=== PATIENT | female | born 1945 | race Caucasian/White ===

== ENCOUNTER 2016-08-22 17:05 | Emergency (ER) | payer MEDICARE ==
[2016-08-22 18:23] VITALS: BP 104/58
[2016-08-22] MEDS ORDERED: cefTRIAXone VIAL(*) 1,000 MG VIAL IM ONE (19:17)
[2016-08-22] MEDS ORDERED: Lidocaine 1% MPF* 2 ML VIAL INJ ONE (19:17)
--- NOTE | 2016-08-22 19:24 | UC ---
Complaint Female HPI - HPI Summary HPI Summary: Patient has been having urinary symptoms for a week, she has had many UTI's in the past, has an indwelling catheter. urine in the leg back is a few hours old, unable to obtaine a clean catch without taking the catheter out at this point. friend with her states she has not been herself, confused and tired. - History Of Current Complaint Chief Complaint: UCGU Stated Complaint: URINARY COMPLAINT Time Seen by Provider: 08/22/16 18:41 Hx Obtained From: Patient ?: No Onset/Duration: Sudden Onset, Lasting Days - 7 Timing: Constant Severity Initially: Mild Severity Currently: Moderate Character: Cramping - Allergies/Home Medications Allergies/Adverse Reactions: Allergies Allergy/AdvReac Type Severity Reaction Status Date / Time Ibuprofen [From Motrin] Allergy Anaphylatic Verified 08/22/16 18:24 Shock Home Medications: Home Medications Aspirin TAB* [Aspirin 325 MG TAB*] 325 mg PO DAILY 08/22/16 [History Confirmed 08/22/16] Baclofen TAB* [Lioresal TAB*] 10 mg PO DAILY 08/22/16 [History Confirmed ] Bp Med 1 tab PO DAILY 08/22/16 [History Confirmed 08/22/16] Gabapentin CAP(*) [Neurontin 100 mg CAP(*)] 1 tab PO ONCE 08/22/16 [History Confirmed 08/22/16] Levothyroxine TAB* [Synthroid TAB*] 100 mcg PO DAILY 08/22/16 [History Confirmed 08/22/16] Lisinopril [Zestril 5 MG-] 5 mg PO DAILY 08/22/16 [History Confirmed 08/22/16] Sertraline* [Zoloft*] 25 mg PO DAILY 08/22/16 [History Confirmed 08/22/16] Simvastatin [Zocor 5 MG-] 5 mg PO DAILY 08/22/16 [History Confirmed 08/22/16] PMH/Surg Hx/FS Hx/Imm Hx Previously Healthy: Yes - Surgical History Surgical History: Yes Surgery Procedure, Year, and Place: R TKA. KNEE REVISION RIGHT. B/L ANKLE SX FOR FX IN 2016. SKIN GRAFT RIGHT BUTTOCK. THYROIDECTOMY - Family History Known Family History: Positive: Hypertension - Social History Alcohol Use: Daily Substance Use Type: None Smoking Status (MU): Former Smoker When Did the Patient Quit Smoking/Using Tobacco: 1982 Review of Systems Constitutional: Fatigue Skin: Negative Eyes: Negative ENT: Negative Respiratory: Negative Cardiovascular: Negative Gastrointestinal: Abdominal Pain Genitourinary: Negative Motor: Negative Neurovascular: Negative Musculoskeletal: Negative Neurological: Headache Psychological: Negative All Other Systems Reviewed And Are Negative: Yes Physical Exam Triage Information Reviewed: Yes Appearance: No Pain Distress, Well-Nourished, Ill-Appearing Vital Signs: Initial Vital Signs Temp 97.4 F 08/22/16 18:12 Pulse 81 08/22/16 18:12 Resp 16 08/22/16 18:12 BP 104/58 08/22/16 18:12 Pulse Ox 99 08/22/16 18:12 Vital Signs Reviewed: Yes Eye Exam: Normal ENT Exam: Normal Dental Exam: Normal Neck exam: Normal Respiratory Exam: Normal Cardiovascular Exam: Normal Abdominal Exam: Normal Bowel Sounds: Positive: Present Musculoskeletal Exam: Normal Musculoskeletal: Positive: Other: - at baseline Neurological Exam: Normal Psychological: Positive: Other: - patient is able to answer questions without difficulty, does have reported increased weakness and fatique Skin Exam: Normal Complaint Female Dx - Course Course Of Treatment: hx obtained, exam performed ,meds reviewed, treated for UTI , educated about follow up. - Differential Dx/Diagnosis Differential Diagnosis/HQI/PQRI: Ureteral Stone, Urinary Tract Infection Provider Diagnoses: UTI Discharge - Discharge Plan Condition: Stable Disposition: HOME Prescriptions: Cephalexin CAP* [Keflex CAP*] 500 mg PO BID #14 cap Patient Education Materials: Urinary Tract Infection in Women (ED), Catheter- associated Urinary Tract Infection (ED) Additional Instructions: 1. Take the medication as prescribed. 2. Increase fluid intake and monitor you BP 3. I receommend follow up in the next few days to reevaluate do to your vunerablity of infection with a catheter. 4. Tylenol as neede for pain and fever.
== END 2016-08-22 20:10 | disposition home or self-care (01) ==
LOC: MERGE 17:05 → UCCORT 17:05
DX: N39.0 Urinary tract infection, site not specified (principal); Z88.6 Allergy status to analgesic agent; Z79.82 Long term (current) use of aspirin; Z87.891 Personal history of nicotine dependence
CPT/HCPCS: 81003; 96372; 99202; G0463; J0696

== ENCOUNTER 2017-02-03 13:31 | Inpatient (IN) | payer MEDICARE ==
[2017-02-03] MEDS ORDERED: Cefepime(*) 1 GM in NS 0.9% 50 ML* 50 ML IVPB SCH (15:00)
[2017-02-03] MEDS: Cefepime 1 GM in Dextrose(*) 1 GM/50 ML BAG IV SCH (15:36)
[2017-02-03] MEDS: NS 0.9% 1000 ML* 1,000 ML IV SCH (15:36)
[2017-02-03 16:18] LABS: ABS Basophils 0.1 10^3/ul (0-0.2); ABS Eosinophils 0.1 10^3/ul (0-0.6); ABS Monocytes 0.7 10^3/ul (0-0.8); ABS Neutrophils 5.7 10^3/ul (1.5-7.7); ABS Nucleated RBC 0 10^3/ul; Hematocrit 32 % (35-47); Hemoglobin 10.4 g/dl (12.0-16.0); Lymphocyte % 13.7 % (25-47); Mean Corpuscular HGB Conc 33 g/dl (31-36); Mean Corpuscular Hemoglobin 23 pg (27-31); Mean Platelet Volume 7 um3 (7.4-10.4); Nucleated Red Blood Cells % 0; Platelet Count 421 10^3/ul (150-450); Red Blood Count 4.44 10^6/ul (4.0-5.4); Red Cell Distribution Width 21 % (10.5-15); White Blood Count 7.5 10^3/ul (3.5-10.8)
[2017-02-03 16:19] LABS: Mean Corpuscular Volume 71 fL (80-97)
[2017-02-03] MEDS ORDERED: Metoprolol Tartrate TAB* 25 MG PO ONE (16:23)
[2017-02-03 16:33] LABS: EGFR Non-African American 102.2 (>60)
[2017-02-03] MEDS ORDERED: Potassium Chlor TAB* 10 MEQ TAB.ER PO ONE (17:13)
[2017-02-03 17:33] LABS: Urine Appearance Cloudy; Urine Blood Negative (Negative); Urine Color Yellow; Urine Ketones 1+ (Negative); Urine Protein Negative (Negative); Urine Specific Gravity 1.011 (1.010-1.030); Urine Urobilinogen Negative (Negative)
--- NOTE | 2017-02-03 18:03 | RAD ---
Mr. INDICATION: Pain and swelling. Edema COMPARISON: None TECHNIQUE: Duplex interrogation of the Lowerextremity was performed. FINDINGS: Deep veins: The common femoral, great saphenous, profunda femoris, proximal, mid, and distal deep femoral, popliteal, posterior tibial, and peroneal veins were interrogated. Distal femoral and a portion proximal popliteal vein are noncompressible consistent with thrombus. The age is indeterminate. There is otherwise normal compressibility, augmentation, and phasic flow. Note that there is very limited evaluation the calf veins due to edema. Superficial veins: There are no findings of superficial thrombophlebitis. Popliteal fossa: Is a complex popliteal cyst which appears to dissect down to the ankle. The cyst measures 4.7 x 4.8 cm at the level the popliteal fossa and extends caudally a distance of 25 cm there is a second small popliteal fossa fluid collection measuring 3.9 x 1.2 x 2.5 cm. Soft tissues: Diffuse soft tissue edema. IMPRESSION: SUSPECT DISTAL FEMORAL DEEP VENOUS THROMBOSIS. DEPENDENT EDEMA. LARGE POPLITEAL CYST WITH DISSECTION INTO THE CALF AND ANKLE.
[2017-02-03] MEDS: Diltiazem TAB* 30 MG PO SCH (18:31)
[2017-02-03] MEDS: Acetaminophen TAB* 325 MG PO PRN (19:26)
[2017-02-03] MEDS: Baclofen TAB* 10 MG PO SCH (20:35)
[2017-02-03] MEDS: Gabapentin CAP(*) 300 MG PO SCH (20:35)
[2017-02-03] MEDS: DIMETHYL FUMARATE 240 MG PO SCH (20:36)
--- NOTE | 2017-02-03 20:54 | HP ---
Amended report to correct patient account number and spelling of patient's last name. ADDENDUM NOW INCLUDED ON THIS REPORT CC: Dr. Alma Brown; Dr. Ren; Dr. Pereira * HISTORY AND PHYSICAL: DATE OF ADMISSION: 02/03/17 PRIMARY CARE PROVIDER: Dr. Alma Brown. CHIEF COMPLAINT: Generalized weakness. HISTORY OF PRESENT ILLNESS: Lili Enriquez is a 71-year-old female with history of multiple sclerosis, hypo-thyroidism, dyslipidemia, depression, who was seen at Dr. Ren's office today. She was noted to have generalized weakness, worsening for the past 3 weeks. The patient also noted to have pseudomonas UTI. Dr. Ren thought the patient has history of fall yesterday and she is at risk of falling again. She was direct admission to the hospital with diagnosis of MS exacerbation and UTI. PAST MEDICAL HISTORY: 1. History of multiple sclerosis. The patient is basically wheelchair bound and transfers by herself though. 2. History of ORIF of the left ankle in 2015. 3. History of hypothyroidism. 4. History of right ankle fracture, status post ORIF in March 2015. 5. History of neurogenic bladder with Garcia in place. 6. History of gastroesophageal reflux disease. 7. History of depression. 8. History of sacral decubitus ulcer, status post surgery and skin flap for it in 2012. The patient stated that her ulcers have all resolved. 9. Status post thyroidectomy in 1980. MEDICATIONS: Include: 1. MiraLAX 17 g daily p.r.n. 2. Calcium carbonate 600 mg daily. 3. Tecfidera 240 mg b.i.d. The patient was started on that [address] Ren. 4. Vitamin D3 1000 units daily. 5. Baclofen 10 mg at bedtime. 6. Acetaminophen on a p.r.n. basis. 7. Aspirin 325 mg daily. 8. Vitamin C 500 mg daily. 9. Vitamin B12 500 mcg daily. 10. Levothyroxine 137 mcg daily. 11. Gabapentin 300 mg at bedtime. 12. Hydrochlorothiazide 25 mg daily. 13. Potassium chloride 10 mEq daily. 14. Metoprolol succinate 25 mg daily. 15. Lisinopril 5 mg daily. 16. Simvastatin 20 mg daily. 17. Zoloft 100 mg daily. ALLERGIES: Include IBUPROFEN, causes anaphylaxis. FAMILY HISTORY: The patient's mother at age of 82 secondary to dementia and stroke. Father of accident at a young age. SOCIAL HISTORY: The patient quit smoking in 1980. She denies any alcohol or drug use. 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 She never . Her friend, Mili Sylvester, is her healthcare proxy. Noemi's phone number is [phone]. Also her sister, Tere, is the person who could be surrogate if Mili could not be reached. REVIEW OF SYSTEMS: Please see history of present illness. The patient stated that her right leg had been markedly swollen for several weeks now. She went to see her orthopedic surgeon in [place], who stated that the patient may have either right knee revision again or have an amputation of the right lower extremity. The patient noted that her urine smells differently in her Garcia bag. She also had a couple of days of hematuria that resolved. She had been afebrile. She complains of generalized weakness and difficulty taking care of herself. She has an aide that comes in 3 times a week. All the remaining 12 systems were reviewed with the patient and were otherwise negative. PHYSICAL EXAMINATION GENERAL: The patient is a pleasant 71-year-old female, who is in no acute distress. Alert, awake, and oriented x3. VITAL SIGNS: Blood pressure 126/71, heart rate of 129 and regular, respiratory rate 18, oxygen saturation 97% on room air, temperature 98.1. HEENT: Head: Atraumatic, normocephalic. Eyes: Pupils are equal and reactive to light and accommodation. Oropharynx clear. Mucosa moist. NECK: Supple. No JVD. No bruit bilaterally. RESPIRATORY: Clear to auscultation bilaterally. CARDIOVASCULAR: Tachycardia. Regular rate and rhythm. No murmur. ABDOMEN: Soft, nontender. Bowel sounds present in all 4 quadrants. EXTREMITIES: There is bilateral pedal edema. The right leg is more enlarged than the left. It appears that the right leg edema is approximately double the size of the left leg. The patient has what appears to be almost like subluxed right knee. Her right foot is also edematous. There is brownish discoloration of bilateral lower extremities, most likely due to venous stasis, vascular changes. There is no clubbing or cyanosis noted. The right leg is nontender to palpation. BACK: On evaluation of the patient's back, decubitus ulcer is healed. The patient's stool appears to be black and stool guaiac is going to be performed. The patient has no CVA tenderness on bilateral back evaluation. NEURO: Speech clear. Cranial nerves II through XII grossly intact. Motor strength in bilateral upper extremities is 5/5 in right extremity, 4+/5 in the left upper extremity. Bilateral lower extremities: Right leg is 3+/5 and left leg is 3+ to 4/5. The patient has patchy sensory deficits overlying the bilateral lower extremities. PSYCHIATRIC: Oriented x3 with no evidence of anxiety or depression. SKIN: On evaluation of the skin, please note brownish discoloration of bilateral lower extremities, otherwise no lesions noted. DIAGNOSTIC STUDIES/LAB DATA: Showed white blood cell count of 7.5, hemoglobin 10.4, hematocrit 32, MCV 71, platelets 421. Sodium was 128, potassium 4.1, chloride 88, carbon dioxide 30, BUN 12, creatinine 0.5 that was documented on . Today's report is still pending. Urinalysis pending at the time of dictation. The patient's urine cultures obtained on 02/01/17 showed Klebsiella pneumoniae of 100,000 colonies and Enterococcal faecalis of 10,000 to 25,000 colonies. ASSESSMENT AND PLAN: 1. Generalized weakness. At this point, it appears to be due to Klebsiella pneumoniae urinary tract infection. The patient is going to be placed on cefepime. The sensitivities of the urine cultures are still pending. I will also exchange Garcia catheter and continue treatment with IV antibiotics. 2. Due to generalized weakness, the patient is going to be placed on physical therapy, occupational therapy. She might benefit from short-term rehabilitation before she returns to independent living. 3. The patient's massive right lower extremity edema is chronic but with worsening. A Doppler is going to be obtained to rule out DVT. The patient also is going to be treated with Jamie bandages on a daily basis. 4. The patient has microcytic anemia with worsening. It appears that she had an evaluation by Dr. Collins on 09/18/16 for her anemia. It showed 2 small gastric ulcers, status post biopsies. There was also biopsy of esophagus performed, which showed benign squamous mucosa. The patient's CLOtest obtained in September of 2016 during the procedure was negative. Once again at this point, we are going to obtain stool guaiac and follow up with that. For the time being , I will continue the patient's aspirin that she is taking as outpatient. 5. For DVT prophylaxis, the patient is going to be placed on heparin subcutaneously. 6. For the patient's hypothyroidism, her levothyroxine is going to be continued. The patient's TSH was noted to be 2.35 on 11/20/16. 7. In regards to the patient's multiple sclerosis, physical therapy, occupational therapy is going to be obtained. The patient currently has no Tecfidera with her and if her family brings it, we will order it. For the time being, the patient is going to be continued on her baclofen as previously taken. 8. Code status. The patient is full code and her healthcare proxy is her friend, Mili, as mentioned above. TIME SPENT: Approximately 62 minutes was spent on the admission of this patient , more than half the time was spent [id number] with the patient during the interview and physical exam. ADDENDUM: Please note that from further review of the patient's medical records and laboratory values and EKGs that just arrived, on the patient's today's EKG, the patient's atrial fibrillation with rapid ventricular response with a heart rate in the 120s. After discussion with the patient, the patient stated she has history of atrial fibrillation and she was told by "nurses" in the past that she occasionally would get in atrial fibrillation. Having said that, I do not see it mentioned in the medical records. At this point, the patient is going to be placed on Cardizem p.o. in addition to the metoprolol. I will replace the patient's potassium since it was low at 3.3. The patient also appears to be hyponatremic and hydrochlorothiazide is going to be held and the patient is going to be placed on IV hydration. In regards to anticoagulation when in atrial fibrillation. The patient has microcytic anemia and black appearing stool. Until her stool guaiac comes back , I will not going to discuss further anticoagulation. Having said that, the patient stated in the past she discussed it with her doctors and she was placed on aspirin only. [id number] #: [id number]/CPS #: [id number] [facility]
[2017-02-03] MEDS: traMADol TAB* 50 MG PO PRN (21:04)
[2017-02-03] MEDS: Heparin VIAL(*) 5000 UNITS/ML VIAL (FIVE THOUSAND) SUBCUT SCH (21:05)
[2017-02-03] MEDS: oxyCODONE TAB* 5 MG TAB PO PRN (22:26)
[2017-02-04] MEDS: Diltiazem TAB* 30 MG PO SCH ×4 (00:12→17:19)
[2017-02-04] MEDS: oxyCODONE TAB* 5 MG TAB PO PRN ×4 (03:17→21:31)
[2017-02-04] MEDS: Cefepime 1 GM in Dextrose(*) 1 GM/50 ML BAG IV SCH ×2 (04:04→15:20)
[2017-02-04] MEDS: Heparin VIAL(*) 5000 UNITS/ML VIAL (FIVE THOUSAND) SUBCUT SCH (05:32)
[2017-02-04 06:56] LABS: ABS Basophils 0.1 10^3/ul (0-0.2); ABS Eosinophils 0.2 10^3/ul (0-0.6); ABS Lymphocytes 1.5 10^3/ul (1.0-4.8); ABS Monocytes 0.6 10^3/ul (0-0.8); ABS Nucleated RBC 0 10^3/ul; Eosinophil % 3.1 % (0-6); Hematocrit 28 % (35-47); Lymphocyte % 27.6 % (25-47); Mean Corpuscular HGB Conc 32 g/dl (31-36); Mean Corpuscular Hemoglobin 23 pg (27-31); Mean Platelet Volume 7 um3 (7.4-10.4); Nucleated Red Blood Cells % 0.1; Platelet Count 339 10^3/ul (150-450); Red Blood Count 3.87 10^6/ul (4.0-5.4); Red Cell Distribution Width 21 % (10.5-15); White Blood Count 5.3 10^3/ul (3.5-10.8)
[2017-02-04 06:57] LABS: Mean Corpuscular Volume 72 fL (80-97)
[2017-02-04 07:11] LABS: EGFR Non-African American 127.1 (>60)
[2017-02-04] MEDS: NS 0.9% 1000 ML* 1,000 ML IV SCH (07:18)
[2017-02-04] MEDS: Ascorbic Acid TAB* 500 MG PO SCH (07:25)
[2017-02-04] MEDS: Aspirin TAB* 325 MG PO SCH (07:25)
[2017-02-04] MEDS: Levothyroxine TAB* 137 MCG TAB PO SCH (07:25)
[2017-02-04] MEDS: DIMETHYL FUMARATE 240 MG PO SCH (07:26)
[2017-02-04] MEDS: Sertraline* 100 MG TAB PO SCH (07:26)
[2017-02-04] MEDS: Cyanocobalamin TAB* 500 MCG PO SCH (07:26)
[2017-02-04] MEDS ORDERED: Metoprolol Succinate XL TAB* 25 MG PO SCH (09:00)
[2017-02-04] MEDS ORDERED: Sertraline* 100 MG TAB PO SCH (09:00)
[2017-02-04] MEDS: Enoxaparin(*) 100 MG/ML SYR SUBCUT SCH ×2 (09:53→20:22)
--- NOTE | 2017-02-04 13:09 | RAD ---
HISTORY: Status post right knee arthroplasty, falls, pain COMPARISONS: January 19, 2015 VIEWS: 2, Frontal and lateral views of the right knee FINDINGS: BONE DENSITY: There is diffuse osteopenia. BONES: The patient is status post right knee arthroplasty. There is dislocation of the femoral component of the tibial component. There is no appreciable periprosthetic fracture. JOINTS: The patient is status post right knee arthroplasty. ALIGNMENT: There is anterior dislocation of the femoral component of the knee arthroplasty with respect to the tibial component. SOFT TISSUES: Unremarkable. OTHER FINDINGS: None. IMPRESSION: DISLOCATION OF THE RIGHT KNEE ARTHROPLASTY
--- NOTE | 2017-02-04 15:01 | PN ---
Subjective Date of Service: 02/04/17 Interval History: Pt has no new complaints. Feels a little "stronger". Objective Active Medications: Acetaminophen (Tylenol Tab*) 650 mg PO Q4H PRN PRN Reason: FEVER/PAIN Last Admin: 02/03/17 19:26 Dose: 650 mg Ascorbic Acid (Vitamin C Tab*) 500 mg PO DAILY [facility] Last Admin: 02/04/17 07:25 Dose: 500 mg Aspirin (Aspirin Tab*) 325 mg PO DAILY [facility] Last Admin: 02/04/17 07:25 Dose: 325 mg Baclofen (Lioresal Tab*) 10 mg PO BEDTIME [facility] Last Admin: 02/03/17 20:35 Dose: 10 mg Cyanocobalamin (Vitamin B12 Tab*) 500 mcg PO DAILY [facility] Last Admin: 02/04/17 07:26 Dose: 500 mcg Diltiazem HCl (Cardizem Tab*) 30 mg PO Q6HR [facility] Last Admin: 02/04/17 11:19 Dose: 30 mg Dimethyl Fumarate (Tecfidera(Nf)) 240 mg PO BID [facility] Enoxaparin Sodium (Lovenox(*)) 90 mg SUBCUT Q12H [facility] Last Admin: 02/04/17 09:53 Dose: 90 mg Gabapentin (Neurontin Cap(*)) 300 mg PO BEDTIME [facility] Last Admin: 02/03/17 20:35 Dose: 300 mg Sodium Chloride (Ns 0.9% 1000 Ml*) 1,000 mls @ 100 mls/hr IV PER RATE [facility] Last Admin: 02/04/17 07:18 Dose: 100 mls/hr Cefepime HCl (Maxipime 1 Gm In Dextrose Duplex (*)) 1 gm in 50 mls @ 100 mls/ hr IV Q12H [facility] Last Admin: 02/04/17 04:04 Dose: 100 mls/hr Levothyroxine Sodium (Synthroid Tab*) 137 mcg PO 0600 [facility] Last Admin: 02/04/17 07:25 Dose: 137 mcg Metoprolol Succinate (Toprol Xl Tab*) 25 mg PO DAILY [facility] Last Admin: 02/04/17 07:26 Dose: 25 mg Oxycodone HCl (Roxycodone Tab*) 5 mg PO Q4H PRN PRN Reason: PAIN Last Admin: 02/04/17 11:19 Dose: 5 mg Polyethylene Glycol/Electrolytes (Miralax*) 17 gm PO DAILY PRN PRN Reason: CONSTIPATION Sertraline HCl (Zoloft*) 100 mg PO DAILY [facility] Last Admin: 02/04/17 07:26 Dose: 100 mg Tramadol HCl (Ultram*) 50 mg PO Q6H PRN PRN Reason: PAIN Last Admin: 02/03/17 21:04 Dose: 50 mg Vital Signs - 8 hr 02/04/17 02/04/17 02/04/17 07:15 07:19 07:24 Temperature 98 F Pulse Rate 85 66 Respiratory 18 16 Rate Blood Pressure 118/67 105/64 (mmHg) O2 Sat by Pulse 94 Oximetry 02/04/17 02/04/17 02/04/17 07:30 11:18 11:19 Temperature 98.4 F Pulse Rate 66 Respiratory 16 16 16 Rate Blood Pressure 112/66 (mmHg) O2 Sat by Pulse 99 Oximetry 02/04/17 02/04/17 02/04/17 11:50 12:54 12:56 Temperature 97.1 F 97.9 F Pulse Rate 104 Respiratory 18 16 Rate Blood Pressure 92/66 106/68 (mmHg) O2 Sat by Pulse 95 Oximetry 02/04/17 14:27 Temperature Pulse Rate Respiratory 16 Rate Blood Pressure (mmHg) O2 Sat by Pulse Oximetry Oxygen Devices in Use Now: None Appearance: 71 yo f in nAD, aAOx3 Eyes: No Scleral Icterus, PERRLA Ears/Nose/Mouth/Throat: NL Teeth, Lips, Gums, Mucous Membranes Moist Neck: NL Appearance and Movements; NL JVP, Trachea Midline Respiratory: Symmetrical Chest Expansion and Respiratory Effort, Clear to Auscultation Cardiovascular: - - irregular Abdominal: NL Sounds; No Tenderness; No Distention, No Hepatosplenomegaly Lymphatic: No Cervical Adenopathy Extremities: No Clubbing, Cyanosis, - - R leg massively swollen with hemosiderin depositis subcu visible in both feet R>L Skin: No Nodules or Sclerosis, - - venous stasis skin discoloration b/l feet R>L Neurological: Alert and Oriented x 3, - - R leg motor at 3+/5, left lef 4/5, kelly sensation deficits on b/l legs and trunk from the waist level down Result Diagrams: 02/04/17 05:56 02/04/17 05:56 Microbiology and Other Data: Microbiology 02/03/17 18:15 Stool Occult Blood (DWAINE) - Final Stool Assess/Plan/Problems-Billing Assessment: Ms. Enriquez is 69 year old female with a PMH significant for MS, neurogenic bladder with Garcia, paroxysmal A. fib (not anticoagulated), b/l ankle ORIF, R knee replacement who is basically WC bound was noted to have UTI and increased weakness with falls, directly admitted form Dr. Ren's office - Patient Problems (1) Generalized weakness Comment: worse MS symptoms due to UTI PT/OT eval ongoing. Knee XRay showed subluxation of the prosthetic joint. Dr. Thomson consulted (2) UTI (urinary tract infection) due to urinary indwelling Garcia catheter Comment: Garcia was exchanged at admission Urine cx&sens resulted, will switch to cipro (3) DVT (deep venous thrombosis) Comment: doppler positive for DVT R leg. Lovenox started. NOAC's and coumadin tx options d/w pt . she is considering all the options (4) Atrial fibrillation Comment: Pt was started on Cardizem PO for rate control, which is better now. Pt stated that she has h/o a. fib, but never treated with anticoaulants. CHADSVasc score of 2-anticoagulation recommended. Lovenox started will check Echo (5) Microcytic anemia Comment: stool heme - Iron and TIBC levels will be ordered (6) Hyponatremia Comment: Most likely due to HCTZ HCTZ held at admission resolving (7) Hypothyroid Comment: Continue levothyroxine. TSH 1.3 11/20/16 (8) Multiple sclerosis Comment: with mild exacerbation odf weakness due to UTI and recent falls as well as r knee subluxation cont Tecfidera, Baclofen (9) Hypertension Comment: Low normal. Lisinopril and HCTZ both on hold. Cardizem started for rate control. Cont lopressor (10) DVT prophylaxis Comment: full anticoagulation with lovenox Status and Disposition: inpatient
[2017-02-04] MEDS: Ciprofloxacin 400MG IVPREMIX(* 400 MG/200 ML BAG IVPB SCH (17:19)
--- NOTE | 2017-02-04 17:35 | RAD ---
INDICATION: Dislocated knee prosthesis. COMPARISON: February 04, 2017 TECHNIQUE: 140 noncontrast axial source images were obtained. Coronal reconstructed images were acquired as well. FINDINGS: The examination is limited due to beam hardening artifact from the prosthesis. There is anterior dislocation of the femur. There is varus angulation at the knee joint. No acute fracture is seen. Both femoral and tibial cc remains seated. There is no CT evidence to suggest fracture of the hardware but again there is some beam hardening artifact. There is a moderate-sized joint effusion. There is mild diffuse simultaneous edema about the knee. IMPRESSION: There is anterior dislocation of the knee. There is no CT evidence to suggest hardware failure or acute osseous injury. There is a joint effusion.
[2017-02-04] MEDS: Gabapentin CAP(*) 300 MG PO SCH (20:20)
[2017-02-04] MEDS: Baclofen TAB* 10 MG PO SCH (20:21)
[2017-02-04] MEDS: PTO:Dimethyl Fumarate(NF) 240 MG CAP PO SCH (20:21)
[2017-02-04] MEDS ORDERED: NS 0.9% 1000 ML* 500 ML IV ONE (23:30)
[2017-02-05] MEDS: Ciprofloxacin 400MG IVPREMIX(* 400 MG/200 ML BAG IVPB SCH ×2 (04:12→16:38)
[2017-02-05] MEDS: Levothyroxine TAB* 137 MCG TAB PO SCH (05:25)
[2017-02-05 06:42] LABS: ABS Basophils 0.1 10^3/ul (0-0.2); ABS Eosinophils 0.2 10^3/ul (0-0.6); ABS Lymphocytes 1.6 10^3/ul (1.0-4.8); ABS Monocytes 0.8 10^3/ul (0-0.8); ABS Neutrophils 3.1 10^3/ul (1.5-7.7); ABS Nucleated RBC 0 10^3/ul; Eosinophil % 3.1 % (0-6); Hematocrit 27 % (35-47); Hemoglobin 8.6 g/dl (12.0-16.0); Lymphocyte % 27.4 % (25-47); Mean Corpuscular HGB Conc 32 g/dl (31-36); Mean Corpuscular Hemoglobin 23 pg (27-31); Mean Platelet Volume 7 um3 (7.4-10.4); Nucleated Red Blood Cells % 0; Platelet Count 311 10^3/ul (150-450); Red Blood Count 3.71 10^6/ul (4.0-5.4); Red Cell Distribution Width 21 % (10.5-15); White Blood Count 5.7 10^3/ul (3.5-10.8)
[2017-02-05 06:43] LABS: Mean Corpuscular Volume 72 fL (80-97)
[2017-02-05 07:01] LABS: EGFR Non-African American 124.1 (>60)
--- NOTE | 2017-02-05 07:44 | PN ---
Subjective Date of Service: 02/05/17 Interval History: pt has no new complaints. Feels better today. r leg still very swollen. Saw Dr. Thomson yesterday who is evaluating her for possible surgery on the dislocated R knee. Has not had a BM since admission Had 7 beat of asymptomatic V. tach at night Objective Active Medications: Acetaminophen (Tylenol Tab*) 650 mg PO Q4H PRN PRN Reason: FEVER/PAIN Last Admin: 02/03/17 19:26 Dose: 650 mg Ascorbic Acid (Vitamin C Tab*) 500 mg PO DAILY [facility] Last Admin: 02/04/17 07:25 Dose: 500 mg Aspirin (Aspirin Tab*) 325 mg PO DAILY [facility] Last Admin: 02/04/17 07:25 Dose: 325 mg Baclofen (Lioresal Tab*) 10 mg PO BEDTIME [facility] Last Admin: 02/04/17 20:21 Dose: 10 mg Cyanocobalamin (Vitamin B12 Tab*) 500 mcg PO DAILY [facility] Last Admin: 02/04/17 07:26 Dose: 500 mcg Diltiazem HCl (Cardizem Cd Cap*) 120 mg PO DAILY [facility] Dimethyl Fumarate (Tecfidera(Nf)) 240 mg PO BID [facility] Last Admin: 02/04/17 20:21 Dose: 240 mg Enoxaparin Sodium (Lovenox(*)) 90 mg SUBCUT Q12H [facility] Last Admin: 02/04/17 20:22 Dose: 90 mg Ferrous Sulfate (Ferrous Sulfate Tab*) 325 mg PO BID [facility] Gabapentin (Neurontin Cap(*)) 300 mg PO BEDTIME [facility] Last Admin: 02/04/17 20:20 Dose: 300 mg Ciprofloxacin/Dextrose (Cipro 400 Mg Ivpremix(*)) 400 mg in 200 mls @ 200 mls/ hr IVPB Q12H [facility] Last Admin: 02/05/17 04:12 Dose: 200 mls/hr Levothyroxine Sodium (Synthroid Tab*) 137 mcg PO 0600 [facility] Last Admin: 02/05/17 05:25 Dose: 137 mcg Metoprolol Succinate (Toprol Xl Tab*) 25 mg PO DAILY [facility] Last Admin: 02/04/17 07:26 Dose: 25 mg Oxycodone HCl (Roxycodone Tab*) 5 mg PO Q4H PRN PRN Reason: PAIN Last Admin: 02/04/17 21:31 Dose: 5 mg Polyethylene Glycol/Electrolytes (Miralax*) 17 gm PO DAILY PRN PRN Reason: CONSTIPATION Sertraline HCl (Zoloft*) 100 mg PO DAILY [facility] Last Admin: 02/04/17 07:26 Dose: 100 mg Tramadol HCl (Ultram*) 50 mg PO Q6H PRN PRN Reason: PAIN Last Admin: 02/03/17 21:04 Dose: 50 mg Vital Signs - 8 hr 02/05/17 02/05/17 02/05/17 00:50 01:04 03:54 Temperature 98.6 F Pulse Rate 70 84 Respiratory 16 16 14 Rate Blood Pressure 90/55 100/61 (mmHg) O2 Sat by Pulse 94 94 Oximetry 02/05/17 07:30 Temperature 98.9 F Pulse Rate 80 Respiratory 18 Rate Blood Pressure 122/70 (mmHg) O2 Sat by Pulse 93 Oximetry Oxygen Devices in Use Now: None Appearance: 71 yo F in nAD, aAOx3 Eyes: No Scleral Icterus, PERRLA Ears/Nose/Mouth/Throat: NL Teeth, Lips, Gums, Mucous Membranes Moist Neck: NL Appearance and Movements; NL JVP, Trachea Midline Respiratory: Symmetrical Chest Expansion and Respiratory Effort, Clear to Auscultation Cardiovascular: NL Sounds; No Murmurs; No JVD, - - irregular Abdominal: NL Sounds; No Tenderness; No Distention, No Hepatosplenomegaly Lymphatic: No Cervical Adenopathy Extremities: No Clubbing, Cyanosis, - - R leg massively swollen, unchanged Skin: No Nodules or Sclerosis, - - venous stasis disoloration of skin of b/l distal LE's Neurological: Alert and Oriented x 3, - - weakness in b/l LE's unchanged Result Diagrams: 02/05/17 06:25 02/05/17 06:25 Microbiology and Other Data: Microbiology 02/03/17 18:15 Stool Occult Blood (DWAINE) - Final Stool Assess/Plan/Problems-Billing Assessment: Ms. Enriquez is 69 year old female with a PMH significant for MS, neurogenic bladder with Garcia, paroxysmal A. fib (not anticoagulated), b/l ankle ORIF, R knee replacement who is basically WC bound was noted to have UTI and increased weakness with falls, directly admitted form Dr. Ren's office - Patient Problems (1) Generalized weakness Comment: worse MS symptoms due to UTI PT/OT eval ongoing. Knee XRay showed subluxation of the prosthetic joint. Dr. Thomson consulted- evaluation for possible surgical intervention ongoing (2) UTI (urinary tract infection) due to urinary indwelling Garcia catheter Comment: Garcia was exchanged at admission Urine cx&sens resulted, cont cipro (3) DVT (deep venous thrombosis) Comment: doppler positive for DVT R leg. Lovenox started. NOAC's and coumadin tx options d/w pt . she is considering all the options (4) Atrial fibrillation Comment: Pt was started on Cardizem PO for rate control, which is better now, but got hypotensive at night and required IVF bolus. Will d/c lopressor, cont cardizem Pt stated that she has h/o a. fib, but never treated with anticoagulants. CHADSVasc score of 2-anticoagulation recommended. Lovenox started Echo ordered (5) Microcytic anemia Comment: stool heme -. Hb down again today, but no signs of bleeding Iron and TIBC levels indicate anemia of chronic disease and iron defficiency Ferrous sulfate started (6) Hyponatremia Comment: Most likely due to HCTZ HCTZ held at admission resolving (7) Hypothyroid Comment: Continue levothyroxine. TSH 1.3 11/20/16 (8) Multiple sclerosis Comment: with mild exacerbation of weakness due to UTI and recent falls as well as r knee subluxation cont Tecfidera, Baclofen (9) Hypertension Comment: Low normal. Lisinopril and HCTZ both on hold. Holding lopressor Cardizem started for rate control. (10) DVT prophylaxis Comment: full anticoagulation with lovenox Status and Disposition: inpatient
[2017-02-05] MEDS ORDERED: Magnesium Sulfate 2 GM IV* 2 GM/50 ML BAG IVPB ONE (09:11)
[2017-02-05] MEDS: Ferrous Sulfate TAB* 325 MG PO SCH ×2 (09:28→20:07)
[2017-02-05] MEDS: Polyethylene Glycol 3350* 17 GM PACKET PO PRN (09:28)
[2017-02-05] MEDS: Docusate CAP* 100 MG PO PRN (09:28)
[2017-02-05] MEDS: Ascorbic Acid TAB* 500 MG PO SCH (09:28)
[2017-02-05] MEDS: Enoxaparin(*) 100 MG/ML SYR SUBCUT SCH ×2 (09:29→20:08)
[2017-02-05] MEDS: Magnesium Oxide TAB* 400 MG PO SCH (09:29)
[2017-02-05] MEDS: PTO:Dimethyl Fumarate(NF) 240 MG CAP PO SCH ×2 (09:29→20:06)
[2017-02-05] MEDS: Cyanocobalamin TAB* 500 MCG PO SCH (09:29)
[2017-02-05] MEDS: Diltiazem CD CAP* 120 MG PO SCH (09:29)
[2017-02-05] MEDS: Aspirin TAB* 325 MG PO SCH (09:34)
[2017-02-05] MEDS: Sertraline* 100 MG TAB PO SCH (09:34)
--- NOTE | 2017-02-05 11:16 | ECHO ---
Patient: SHORTY DUDLEY [facility] Rec#: [id number] : 1945 Date: 02/05/2017 Age: 71y Height: 175.26 cm / 69.0 in Weight: 90.72 kg / 199.9 lbs Sex: F BSA: 2.07 Room#: 404 Admit Date#: 02/03/2017 Type: Inpatient Referring: Varsha Campa MD Reading: Tio Layton MD Seismology Teacher: Sharon SimmonsESTEFANI CC: Alma Brown MD Transthoracic Echocardiogram Indication: A-fib BP: 100/61 HR: 87 Rhythm: A-Fib Findings History: A-fib, multiple sclerosis, HTN, thyroid cancer, hypothyroidism, former smoker. Technical Comments: The study quality is good. Completed at 0850. Left Ventricle: The left ventricular chamber size is normal. Mild concentric left ventricular hypertrophy is observed.Sigmoid septum without significant obstruction. Global left ventricular wall motion and contractility are within normal limits. There is normal left ventricular systolic function. The estimated ejection fraction is 50-55%. probably closer to 55% although patient was in atrial fibrillation which may influence assessment of global function. The assessment of diastolic function is non-diagnostic. Left Atrium: The left atrium is severely dilated. Right Ventricle: Moderator Band present. The right ventricle is mildly dilated. The right ventricular global systolic function is low normal. Right Atrium: The right atrial cavity size is severely dilated. Aortic Valve: The aortic valve is trileaflet. The aortic valve leaflets are mildly thickened. There is moderate thickening of the left coronary cusp.more prominent nonmobile thickening of the commissures of the LCC. Systolic excursion of the left coronary cusp is reduced. There is trace to mild aortic regurgitation. There is no evidence of aortic stenosis. Mitral Valve: There is mitral annular calcification. The mitral valve leaflets are mildly thickened. There is moderate mitral regurgitation. The mitral regurgitant jet is centrally directed. The mitral regurgitant jet is eccentric.There is a wall jet directed posteriorly as well as a central jet. There is no evidence of mitral stenosis. Tricuspid Valve: The tricuspid valve leaflets are mildly thickened. There is moderate tricuspid regurgitation. The right ventricular systolic pressure is estimated at 58 mmHg. There is evidence of moderate pulmonary hypertension. There is no tricuspid stenosis. Pulmonic Valve: The pulmonic valve appears normal. There is mild pulmonic regurgitation. There is no pulmonic stenosis. Pericardium: There is no significant pericardial effusion. Aorta: There is mild dilatation of the ascending aorta. The aortic arch is not well visualized. The aortic root is normal in size. Pulmonary Artery: The main pulmonary artery appears normal. Venous: The inferior vena cava is dilated. There is less than 50% respiratory change in the inferior vena cava dimension. Conclusions Mild concentric left ventricular hypertrophy is observed. The estimated ejection fraction is 50-55%, probably closer to 55 (patient was in atrial fibrillation which may influence assessment of global function). The left atrium is severely dilated. The right ventricle is mildly dilated. The right ventricle is mildly dilated. The right ventricular global systolic function is low normal. The right atrial cavity size is severely dilated. The aortic valve leaflets are mildly thickened. There is moderate thickening of the left coronary cusp.more prominent nonmobile thickening of the commissures of the LCC. Systolic excursion of the left coronary cusp is reduced. There is trace to mild aortic regurgitation. The mitral valve leaflets are mildly thickened. There is moderate mitral regurgitation. The mitral regurgitant jet is eccentric.There is a wall jet directed posteriorly as well as a central jet. There is moderate tricuspid regurgitation. The right ventricular systolic pressure is estimated at 58 mmHg. There is evidence of moderate pulmonary hypertension. Compared to the JEANNETTE of 08/03/2008, the MR has increased from trace then to moderate now. The PASP has increased from 34 to 58 mmhg. The AI is new. The biatrial enlargement was mild then and is severe now. Measurements Name Value Normal Range RVIDd (AP) 2D 3.2 cm (0.9 - 2.6) RVDdMajor (2D) 4.6 cm (2.2 - 4.4) RAd ISD 4CH 6.8 cm (3.4 - 4.9) RA (A4C)W 4.7 cm (2.9 - 4.6) IVSd (2D) 1.1 cm (0.6 - 1) LVPWd (2D) 1.1 cm (0.6 - 1) LVIDd (2D) 4.9 cm (3.6 - 5.4) LVIDs (2D) 3.6 cm - LV FS (2D) 27 % (25 - 45) Aortic Annulus 1.9 cm (1.4 - 2.6) Ao root diameter (2D) 2.9 cm (2.1 - 3.5) Ascending Ao 3.5 cm (2.1 - 3.4) LA dimension (AP) 2D 4.9 cm (2.3 - 3.8) LAd ISD 4CH 6.6 cm (2.9 - 5.3) LA ISD 4CH W 4.6 cm (2.5 - 4.5) Name Value Normal Range LA ESV SP 4CH (A/L) 80 ml - LA ESV SP 2CH (A/L) 187 ml - LA ESV BP (A/L) 131 ml - LA ESV BP (A/L) index 63 ml/m2 - LA ESV SP 4CH (MOD) 72 ml - LA ESV SP 2CH (MOD) 175 ml - Name Value Normal Range MV E-wave Vmax 1 m/sec - MV deceleration time 218.8 msec - MV A-wave Vmax 0.18 m/sec - MV E:A ratio 111.7 ratio - LV septal e' Vmax 0.1 m/sec - LV lateral e' Vmax 0.13 m/sec - LV E:e' septal ratio 10 ratio - LV E:e' lateral ratio 7.69 ratio - Name Value Normal Range AV Vmax 1.62 m/sec - AV VTI 30.51 cm - AV peak gradient 10.59 mmHg - AV mean gradient 6.06 mmHg - LVOT Vmax 1.04 m/sec - LVOT VTI 19.62 cm - LVOT peak gradient 4.43 mmHg - LVOT mean gradient 2.48 mmHg - Name Value Normal Range MV Vmax 1.21 m/sec - MV VTI 25.49 cm - MV peak gradient 5.89 mmHg - MV mean gradient 1.82 mmHg - MV PHT 71.5 msec - MR Vmax 5.47 m/sec - MR VTI 153.1 cm - MR flow (PISA) 62 ml/sec - MR ERO 0.11 cm2 - MR PISA radius 0.41 cm - MR alias Vmax 57.4 cm/sec - MVA (PHT) 3.07 cm2 - Name Value Normal Range TR Vmax 3.1 m/sec - TR peak gradient 38 mmHg - RAP 20 mmHg - RVSP 58 mmHg - IVC diameter 2.3 cm - Name Value Normal Range PV Vmax 0.7 m/sec - PV peak gradient 2.02 mmHg - PA end-diastolic Vmax 1.33 m/sec -
--- NOTE | 2017-02-05 13:03 | PN ---
Progress Note - Progress Note Date of Service: 02/05/17 SOAP: Subjective: 71 y/o female with dislocated R TKA consulted by Dr. Thomson. Patient with concerns about surgery, anticoagulation. Pain controlled. VSS afebrile overnight. Objective: General- Well appearing, resting in bed comfortably, NAD MSK- R LE with obvious deformity at R knee with tib posterior to fem. sensation intact, incision c/d/i, + moderate-severe effusion noted. + DF/PF b/ l LE, hyperpigmentation b/l LEs. SITLT b/l LEs. Vital Signs Temp Pulse Resp BP Pulse Ox 98.4 F 84 16 112/69 95 02/05/17 11:28 02/05/17 11:28 02/05/17 11:28 02/05/17 11:28 02/05/17 11:28 Assessment: Stable 71 y/o female with dislocated R TKA consulted by Dr. Thomson. Plan: - Awaiting surgical records for implant type- Will have to contact vendor for hardware/ poly. Hardware appears intact on CT, possible poly exchange 02/[address] Thomson - Continue pain management Active Medications Generic Name Dose Route Start Last Admin Trade Name Freq PRN Reason Stop Dose Admin Acetaminophen 650 mg 02/03/17 14:30 02/03/17 19:26 Tylenol Tab* PO 650 mg Q4H PRN Administration FEVER/PAIN Ascorbic Acid 500 mg 02/04/17 09:00 02/05/17 09:28 Vitamin C Tab* PO 500 mg DAILY [facility] Administration Aspirin 325 mg 02/04/17 09:00 02/05/17 09:34 Aspirin Tab* PO 325 mg DAILY [facility] Administration Baclofen 10 mg 02/03/17 21:00 02/04/17 20:21 Lioresal Tab* PO 10 mg BEDTIME [facility] Administration Cyanocobalamin 500 mcg 02/04/17 09:00 02/05/17 09:29 Vitamin B12 Tab* PO 500 mcg DAILY [facility] Administration Diltiazem HCl 120 mg 02/05/17 09:00 02/05/17 09:29 Cardizem Cd Cap* PO 120 mg DAILY [facility] Administration Dimethyl Fumarate 240 mg 02/04/17 21:00 02/05/17 09:29 Tecfidera(Nf) PO 240 mg BID [facility] Administration Docusate Sodium 100 mg 02/05/17 07:38 02/05/17 09:28 Colace Cap* PO 100 mg BID PRN Administration CONSTIPATION Enoxaparin Sodium 90 mg 02/04/17 08:00 02/05/17 09:29 Lovenox(*) SUBCUT 90 mg Q12H [facility] Administration Ferrous Sulfate 325 mg 02/05/17 09:00 02/05/17 09:28 Ferrous Sulfate Tab* PO 325 mg BID [facility] Administration Gabapentin 300 mg 02/03/17 21:00 02/04/17 20:20 Neurontin Cap(*) PO 300 mg BEDTIME [facility] Administration Ciprofloxacin/Dextrose 400 mg in 200 mls @ 200 mls/hr 02/04/17 16:00 04:12 Cipro 400 Mg Ivpremix(*) IVPB 200 mls/hr Q12H [facility] Administration Levothyroxine Sodium 137 mcg 02/04/17 06:00 02/05/17 05:25 Synthroid Tab* PO 137 mcg 0600 [facility] Administration Magnesium Oxide 800 mg 02/05/17 10:00 02/05/17 09:29 Magox 400 Tab* PO 800 mg DAILY [facility] Administration Oxycodone HCl 5 mg 02/03/17 22:09 02/04/17 21:31 Roxycodone Tab* PO 5 mg Q4H PRN Administration PAIN Polyethylene Glycol/Electrolytes 17 gm 02/03/17 15:32 02/05/17 09:28 Miralax* PO 17 gm DAILY PRN Administration CONSTIPATION Sertraline HCl 100 mg 02/04/17 09:00 02/05/17 09:34 Zoloft* PO 100 mg DAILY [facility] Administration Tramadol HCl 50 mg 02/03/17 20:44 02/03/17 21:04 Ultram* PO 50 mg Q6H PRN Administration PAIN
[2017-02-05] MEDS: oxyCODONE TAB* 5 MG TAB PO PRN ×2 (14:53→20:17)
[2017-02-05] MEDS: Gabapentin CAP(*) 300 MG PO SCH (20:06)
[2017-02-05] MEDS: Baclofen TAB* 10 MG PO SCH (20:07)
--- NOTE | 2017-02-05 20:38 | CONS ---
ORTHOPEDIC CONSULT: DATE OF CONSULT: 02/04/17 CHIEF COMPLAINT: Right leg. HISTORY OF PRESENT ILLNESS: Ms. Enriquez is a 71-year-old female who has a history of troubles with her right knee. She had undergone a right total knee arthroplasty with Dr. Nair in 2008 and it became infected. She underwent a washout with a polyethylene exchange several weeks later in [place] with Dr. Benites and he had noted that she would need to have the knee revised at some point and that should be done at [place] or [place]. She ended up having that done in [place] in 2012. I have PT reports that showed she had done well, regaining strength and motion and was limited by her MS. Unfortunately, she has been having more troubles with leg weakness and had been falling and initially I have been told that about 4 to 6 weeks ago, she had fallen and there was a deformity to the knee. She had seen Dr. Benites once again, who had told her that a revision would probably be unsuccessful and that an amputation would probably be the surgeryshe would end up with. With reviewing her records , it turns out that the knee troubles had occurred before December 10, so that fall had been well over two months ago. She has had troubles with the leg since the fall, where it will not hold her up and today I tried to get a time line together. I specifically asked her if the knee was deformed this way even back then and she reports that it was. She states it was never right, but it was not like this either. She had seen Dr. Ren on Wednesday and because of generalized weakness and not doing well, she was a direct admit for generalized weakness. With her weakness, Physical Therapy and OT have been ordered and when physical therapy saw the knee, they would not weight bear her and x-rays were ordered, which had found a dislocated total knee arthroplasty. I was then called and I had spoken to her yesterday and had started the process to try and get this fixed. PREVIOUS MEDICAL HISTORY: Multiple sclerosis, hypothyroidism, GERD, depression , AFib. PREVIOUS SURGICAL HISTORY: Right total knee arthroplasty in 2008 with washout several weeks later, revision right total knee arthroplasty in 2012, thyroidectomy in 1980, sacral decubitus ulcer debridement and eventual skin debridement, multiple debridements in 2008 with eventual flap coverage in 2012. ORIF, right ankle fracture, and then left ankle fracture in 2016. MEDICATIONS ON ADMISSION: 1. MiraLAX 17 g daily. 2. Calcium supplementation. 3. Tecfidera 240 mg b.i.d. 4. Vitamin D supplementation. 5. Baclofen 10 mg p.o. q.h.s. 6. Tylenol p.r.n. 7. Aspirin 325 mg daily. 8. Vitamin C and B12 supplements. 9. Levothyroxine 137 mg daily. FAMILY HISTORY: Noncontributory. SOCIAL HISTORY: She is an ex-smoker, but has quit over 30 years ago. She has a negative EtOH history. PHYSICAL EXAM: General: Mature female, no apparent distress, lying in bed. She is oriented x3. She has appropriate mood and affect. Right lower extremity : There is an obvious deformity to the right knee. There is also a significant swelling from the thigh about the knee into the calf and down into the ankle and dorsum of the foot. She has several scars about the anterior lateral aspect of the knee. With flexing the knee to about 45 degrees and gentle traction, I can reduce the knee and it can stay there for a few moments, looking almost normal until she tries moving in which case there is a thunk as she once again dislocates. She has no pain without moving the leg and was only minimally discomfort with my manipulating the leg and almost locating and dislocating the knee. I believe likely the poly is perched when I 'relocated' her, as I can not see how I could get the post back into the femoral notch just wit gentle traction unless it is broken. DIAGNOSTIC STUDIES/LAB DATA: X-rays of the knee taken previously are available for review. It could be seen, the tibia is posterior to the femur. I can see the outline of the tibial polyethylene, but I do not see an outline of a polyethylene about the metal screw holding the polyethylene in place. ASSESSMENT: Dislocated right total knee arthroplasty. PLAN: She has a constrained knee in there and I have now found out that is a Sigma total condylar 3 knee with a constrained liner, so my guess is that either the polyethylene has worn down such that the knee can now slide out of place or the polyethylene post has broken. Either way, I believe replacing that polyethylene should restore stability to the knee and allow to move easier. I warned her that we are not looking to restore normal function, but rather give her a knee that is stable so that she can use that as a platform to stand and transfer. She reports that also would be her goal as well. We have parts coming in tonight and tomorrow, so that we should be set for a relocation of the right knee Wednesday and a polyethylene exchange. Risks of surgery such as infection, scar formation, stiffness, DVT, pulmonary embolism, and neurovascular injury, as well as increased weakness from her MS were discussed. [id number]/[facility] #: [id number] JANETH
[2017-02-06] MEDS: Ciprofloxacin 400MG IVPREMIX(* 400 MG/200 ML BAG IVPB SCH ×2 (03:47→16:08)
[2017-02-06] MEDS: Levothyroxine TAB* 137 MCG TAB PO SCH (05:54)
[2017-02-06 07:15] LABS: EGFR Non-African American 127.1 (>60)
[2017-02-06] MEDS: Aspirin TAB* 325 MG PO SCH (08:59)
[2017-02-06] MEDS: Sertraline* 100 MG TAB PO SCH (08:59)
[2017-02-06] MEDS: Diltiazem CD CAP* 120 MG PO SCH (08:59)
[2017-02-06] MEDS: Ferrous Sulfate TAB* 325 MG PO SCH ×2 (08:59→21:40)
[2017-02-06] MEDS: Enoxaparin(*) 100 MG/ML SYR SUBCUT SCH (09:00)
[2017-02-06] MEDS: Cyanocobalamin TAB* 500 MCG PO SCH (09:00)
[2017-02-06] MEDS: Magnesium Oxide TAB* 400 MG PO SCH (09:00)
[2017-02-06] MEDS: Metoprolol Tartrate TAB* 25 MG PO SCH ×2 (09:00→21:41)
[2017-02-06] MEDS: Ascorbic Acid TAB* 500 MG PO SCH (09:00)
[2017-02-06] MEDS: PTO:Dimethyl Fumarate(NF) 240 MG CAP PO SCH ×2 (09:01→21:39)
[2017-02-06] MEDS: oxyCODONE TAB* 5 MG TAB PO PRN ×2 (11:06→16:11)
--- NOTE | 2017-02-06 11:14 | PN ---
Progress Note - Progress Note Date of Service: 02/06/17 SOAP: Subjective: Pt lying comfortably in bed. Pain well controlled. Anxious about surgery. Denies F/C/N/T Objective: Right knee immobilized. Sensation intact b/l. DP/PT pulses 2+ Vital Signs: Temp Pulse Resp BP Pulse Ox 98.7 F 111 16 124/68 92 02/06/17 08:09 02/06/17 08:09 02/06/17 08:09 02/06/17 08:09 02/06/17 08:09 Laboratory Last Values WBC 5.7 10^3/ul (3.5-10.8) 02/05/17 06:25 RBC 3.71 10^6/ul (4.0-5.4) L 02/05/17 06:25 Hgb 8.6 g/dl (12.0-16.0) L 02/05/17 06:25 Hct 27 % (35-47) L 02/05/17 06:25 MCV 72 fL (80-97) L 02/05/17 06:25 MCH 23 pg (27-31) L 02/05/17 06:25 MCHC 32 g/dl (31-36) 02/05/17 06:25 RDW 21 % (10.5-15) H 02/05/17 06:25 Plt Count 311 10^3/ul (150-450) 02/05/17 06:25 MPV 7 um3 (7.4-10.4) L 02/05/17 06:25 Neut % (Auto) 54.2 % (38-83) 02/05/17 06:25 Lymph % (Auto) 27.4 % (25-47) 02/05/17 06:25 Gove % (Auto) 13.6 % (1-9) H 02/05/17 06:25 Eos % (Auto) 3.1 % (0-6) 02/05/17 06:25 Baso % (Auto) 1.7 % (0-2) 02/05/17 06:25 Absolute Neuts (auto) 3.1 10^3/ul (1.5-7.7) 02/05/17 06:25 Absolute Lymphs (auto) 1.6 10^3/ul (1.0-4.8) 02/05/17 06:25 Absolute Monos (auto) 0.8 10^3/ul (0-0.8) 02/05/17 06:25 Absolute Eos (auto) 0.2 10^3/ul (0-0.6) 02/05/17 06:25 Absolute Basos (auto) 0.1 10^3/ul (0-0.2) 02/05/17 06:25 Absolute Nucleated RBC 0 10^3/ul 02/05/17 06:25 Nucleated RBC % 0 02/05/17 06:25 Sodium 130 mmol/L (133-145) L 02/06/17 06:49 Potassium 4.0 mmol/L (3.5-5.0) 02/06/17 06:49 Chloride 97 mmol/L (101-111) L 02/06/17 06:49 Carbon Dioxide 26 mmol/L (22-32) 02/06/17 06:49 Anion Gap 7 mmol/L (2-11) 02/06/17 06:49 BUN 12 mg/dL (6-24) 02/06/17 06:49 Creatinine 0.48 mg/dL (0.51-0.95) L 02/06/17 06:49 Est GFR ( Amer) 163.5 (>60) 02/06/17 06:49 Est GFR (Non-Af Amer) 127.1 (>60) 02/06/17 06:49 BUN/Creatinine Ratio 25.0 (8-20) H 02/06/17 06:49 Glucose 104 mg/dL (70-100) H 02/06/17 06:49 Calcium 8.4 mg/dL (8.6-10.3) L 02/06/17 06:49 Magnesium 1.9 mg/dL (1.9-2.7) 02/06/17 06:49 Iron < 15 ug/dL (50-212) L 02/05/17 06:25 TIBC 384 mcg/dL (250-450) 02/05/17 06:25 % Saturation 4 % (15-55) L 02/05/17 06:25 Unsat Iron Binding 369.68721 ug/dL 02/05/17 06:25 Total Bilirubin 0.60 mg/dL (0.2-1.0) 02/03/17 15:51 AST 27 U/L (13-39) 02/03/17 15:51 ALT 14 U/L (7-52) 02/03/17 15:51 Alkaline Phosphatase 162 U/L (34-104) H 02/03/17 15:51 Troponin I 0.01 ng/mL (<0.04) 02/03/17 15:51 Total Protein 7.1 g/dL (6.4-8.9) 02/03/17 15:51 Albumin 3.8 g/dL (3.2-5.2) 02/03/17 15:51 Globulin 3.3 g/dL (2-4) 02/03/17 15:51 Albumin/Globulin Ratio 1.2 (1-3) 02/03/17 15:51 Urine Color Yellow 02/03/17 15:30 Urine Appearance Cloudy 02/03/17 15:30 Urine pH 5.0 (5-9) 02/03/17 15:30 Ur Specific [place] 1.011 (1.010-1.030) 02/03/17 15:30 Urine Protein Negative (Negative) 02/03/17 15:30 Urine Ketones 1+ (Negative) H 02/03/17 15:30 Urine Blood Negative (Negative) 02/03/17 15:30 Urine Nitrate Positive (Negative) H 02/03/17 15:30 Urine Bilirubin Negative (Negative) 02/03/17 15:30 Urine Urobilinogen Negative (Negative) 02/03/17 15:30 Ur Leukocyte Esterase 2+ (Negative) H 02/03/17 15:30 Urine WBC (Auto) 2+(11-20/hpf) (Absent) H 02/03/17 15:30 Urine RBC (Auto) Trace(0-2/hpf) (Absent) 02/03/17 15:30 Ur Squamous Epith Cells Present (Absent) H 02/03/17 15:30 Urine Bacteria 1+ (Absent) H 02/03/17 15:30 Urine Glucose Negative (Negative) 02/03/17 15:30 Urine Ascorbic Acid * (Negative) H 02/03/17 15:30 Blood Type B Positive 02/05/17 06:22 Antibody Screen Positive 02/05/17 06:22 Antibody Identification Anti-K 02/05/17 06:22 Direct Antiglob Test Negative 02/05/17 06:22 Crossmatch See Detail 02/05/17 06:22 Assessment: 71 yo female dislocation right TKA Plan: Pain control Plan is for OR 02/07/17 for poly exchange NPO after MN
--- NOTE | 2017-02-06 11:42 | PN ---
Subjective Date of Service: 02/06/17 Interval History: pt has no new complaints. Planned for surgery tomorrow Objective Active Medications: Acetaminophen (Tylenol Tab*) 650 mg PO Q4H PRN PRN Reason: FEVER/PAIN Last Admin: 02/03/17 19:26 Dose: 650 mg Ascorbic Acid (Vitamin C Tab*) 500 mg PO DAILY [facility] Last Admin: 02/06/17 09:00 Dose: 500 mg Aspirin (Aspirin Tab*) 325 mg PO DAILY [facility] Last Admin: 02/06/17 08:59 Dose: 325 mg Baclofen (Lioresal Tab*) 10 mg PO BEDTIME [facility] Last Admin: 02/05/17 20:07 Dose: 10 mg Cyanocobalamin (Vitamin B12 Tab*) 500 mcg PO DAILY [facility] Last Admin: 02/06/17 09:00 Dose: 500 mcg Diltiazem HCl (Cardizem Cd Cap*) 120 mg PO DAILY [facility] Last Admin: 02/06/17 08:59 Dose: 120 mg Dimethyl Fumarate (Tecfidera(Nf)) 240 mg PO BID [facility] Last Admin: 02/06/17 09:01 Dose: 240 mg Docusate Sodium (Colace Cap*) 100 mg PO BID PRN PRN Reason: CONSTIPATION Last Admin: 02/05/17 09:28 Dose: 100 mg Enoxaparin Sodium (Lovenox(*)) 90 mg SUBCUT Q12H [facility] Stop: 02/06/17 23:00 Last Admin: 02/06/17 09:00 Dose: 90 mg Ferrous Sulfate (Ferrous Sulfate Tab*) 325 mg PO BID [facility] Last Admin: 02/06/17 08:59 Dose: 325 mg Gabapentin (Neurontin Cap(*)) 300 mg PO BEDTIME [facility] Last Admin: 02/05/17 20:06 Dose: 300 mg Ciprofloxacin/Dextrose (Cipro 400 Mg Ivpremix(*)) 400 mg in 200 mls @ 200 mls/ hr IVPB Q12H [facility] Last Admin: 02/06/17 03:47 Dose: 200 mls/hr Levothyroxine Sodium (Synthroid Tab*) 137 mcg PO 0600 [facility] Last Admin: 02/06/17 05:54 Dose: 137 mcg Magnesium Oxide (Magox 400 Tab*) 800 mg PO DAILY [facility] Last Admin: 02/06/17 09:00 Dose: 800 mg Metoprolol Tartrate (Lopressor Tab*) 12.5 mg PO Q12HR [facility] Last Admin: 02/06/17 09:00 Dose: 12.5 mg Oxycodone HCl (Roxycodone Tab*) 5 mg PO Q4H PRN PRN Reason: PAIN Last Admin: 02/06/17 11:06 Dose: 5 mg Polyethylene Glycol/Electrolytes (Miralax*) 17 gm PO DAILY PRN PRN Reason: CONSTIPATION Last Admin: 02/05/17 09:28 Dose: 17 gm Sertraline HCl (Zoloft*) 100 mg PO DAILY [facility] Last Admin: 02/06/17 08:59 Dose: 100 mg Tramadol HCl (Ultram*) 50 mg PO Q6H PRN PRN Reason: PAIN Last Admin: 02/03/17 21:04 Dose: 50 mg Vital Signs - 8 hr 02/06/17 02/06/17 02/06/17 03:54 08:00 08:09 Temperature 98.9 F 98.7 F Pulse Rate 101 111 Respiratory 18 16 16 Rate Blood Pressure 119/77 124/68 (mmHg) O2 Sat by Pulse 93 92 Oximetry 02/06/17 11:06 Temperature Pulse Rate Respiratory 16 Rate Blood Pressure (mmHg) O2 Sat by Pulse Oximetry Oxygen Devices in Use Now: None Appearance: 71 yo F in nAD, AAOx3 Eyes: No Scleral Icterus, PERRLA Ears/Nose/Mouth/Throat: NL Teeth, Lips, Gums, Mucous Membranes Moist Neck: NL Appearance and Movements; NL JVP, Trachea Midline Respiratory: Symmetrical Chest Expansion and Respiratory Effort, Clear to Auscultation Cardiovascular: NL Sounds; No Murmurs; No JVD, - - irregular Abdominal: NL Sounds; No Tenderness; No Distention, No Hepatosplenomegaly Lymphatic: No Cervical Adenopathy Extremities: No Clubbing, Cyanosis, - - R lleg edema slighly improved Skin: - - brown /ecchymotic disoloration of b/l feet unchanged Neurological: Alert and Oriented x 3, - - b/l LE's weakness unchanged Result Diagrams: 02/05/17 06:25 02/06/17 06:49 Microbiology and Other Data: Microbiology 02/03/17 18:15 Stool Occult Blood (DWAINE) - Final Stool Assess/Plan/Problems-Billing Assessment: Ms. Enriquez is 69 year old female with a PMH significant for MS, neurogenic bladder with Garcia, paroxysmal A. fib (not anticoagulated), b/l ankle ORIF, R knee replacement who is basically WC bound was noted to have UTI and increased weakness with falls, directly admitted form Dr. Ren's office - Patient Problems (1) Generalized weakness Comment: worse MS symptoms due to UTI, but also pt's fall was likley multifactorial due to subluxation of r knee and UTI PT/OT eval ongoing. Knee XRay showed subluxation of the prosthetic joint. Dr. Thomson consulted- evaluation for possible surgical intervention tomorrow. Echo showed good EF and mod MR. Pt is in controlled a. fib. There is no way to eval exercise tolerance due to pt's immobility at baseline. From ACS calculator pt is at aprox 9% of serius complication due to her comorbid conditions. Pt has chronic a. fib and disability from MS as well as obesity. Despite that if pt does not have surgery she will be NWB on r leg for lifetime and that will likely cost her independence. She is aware of the risk and agrees to proceed with surgery. She is medically opimized for the surgery (2) UTI (urinary tract infection) due to urinary indwelling Garcia catheter Comment: Garcia was exchanged at admission Urine cx&sens form 02/01/17 resulted, cont cipro (3) DVT (deep venous thrombosis) Comment: doppler positive for DVT R leg. Lovenox started. NOAC's and coumadin tx options d/w pt . she is considering all the options For preop will hold Lovenox tonight (4) Atrial fibrillation Comment: Pt was started on Cardizem PO for rate control and a lower dose of metoprolol. Pt stated that she has h/o a. fib, but never treated with anticoagulants. CHADSVasc score of 2-anticoagulation recommended. Lovenox started Echo shows EF 55% and mod MR (5) Microcytic anemia Comment: stool heme -. Hb low yesterday. was transfused 1 u PRBC on 02/04/17 for preop. Iron and TIBC levels indicate anemia of chronic disease and iron defficiency Ferrous sulfate started (6) Hyponatremia Comment: Most likely due to HCTZ HCTZ held at admission resolving (7) Hypothyroid Comment: Continue levothyroxine. TSH 1.3 11/20/16 (8) Multiple sclerosis Comment: with mild exacerbation of weakness due to UTI and recent falls as well as r knee subluxation cont Tecfidera, Baclofen (9) Hypertension Comment: Low normal. Lisinopril and HCTZ both on hold. Cardizem started for rate control. (10) DVT prophylaxis Comment: full anticoagulation with lovenox Status and Disposition: inpatient
[2017-02-06] MEDS: Gabapentin CAP(*) 300 MG PO SCH (21:40)
[2017-02-06] MEDS: Baclofen TAB* 10 MG PO SCH (21:40)
[2017-02-07] MEDS: Ciprofloxacin 400MG IVPREMIX(* 400 MG/200 ML BAG IVPB SCH ×2 (04:44→17:09)
[2017-02-07 05:29] LABS: ABS Basophils 0.1 10^3/ul (0-0.2); ABS Eosinophils 0.2 10^3/ul (0-0.6); ABS Lymphocytes 1.1 10^3/ul (1.0-4.8); ABS Monocytes 0.8 10^3/ul (0-0.8); ABS Neutrophils 4.6 10^3/ul (1.5-7.7); ABS Nucleated RBC 0 10^3/ul; Eosinophil % 2.9 % (0-6); Hematocrit 30 % (35-47); Hemoglobin 9.8 g/dl (12.0-16.0); Lymphocyte % 16.5 % (25-47); Mean Corpuscular HGB Conc 32 g/dl (31-36); Mean Corpuscular Hemoglobin 24 pg (27-31); Mean Platelet Volume 7 um3 (7.4-10.4); Nucleated Red Blood Cells % 0.1; Platelet Count 325 10^3/ul (150-450); Red Blood Count 4.12 10^6/ul (4.0-5.4); Red Cell Distribution Width 22 % (10.5-15); White Blood Count 6.7 10^3/ul (3.5-10.8)
[2017-02-07] MEDS: Levothyroxine TAB* 137 MCG TAB PO SCH (05:47)
[2017-02-07 05:50] LABS: Mean Corpuscular Volume 73 fL (80-97)
[2017-02-07 05:51] LABS: EGFR Non-African American 124.1 (>60)
[2017-02-07] MEDS ORDERED: Famotidine IV* 10 MG/ML 2 ML (20 mg) IV ONE (06:00)
[2017-02-07] MEDS ORDERED: KETAMINE HCL* 50 MG/ML 10 ML VIAL ONE (07:25)
[2017-02-07] MEDS ORDERED: fentaNYL* 50 MCG/ML 2 ML VIAL (100 MCG VIAL) ONE (07:25)
[2017-02-07] MEDS ORDERED: Midazolam* 1 MG/ML 10 ML VIAL (10 MG) ONE (07:26)
[2017-02-07] MEDS: Metoprolol Tartrate TAB* 25 MG PO SCH ×2 (07:28→19:42)
[2017-02-07] MEDS: Sertraline* 100 MG TAB PO SCH (07:30)
[2017-02-07] MEDS: Cyanocobalamin TAB* 500 MCG PO SCH (07:30)
[2017-02-07] MEDS: Ferrous Sulfate TAB* 325 MG PO SCH ×2 (07:30→19:42)
[2017-02-07] MEDS: Diltiazem CD CAP* 120 MG PO SCH (07:30)
[2017-02-07] MEDS: PTO:Dimethyl Fumarate(NF) 240 MG CAP PO SCH ×2 (07:30→19:43)
[2017-02-07] MEDS: Aspirin TAB* 325 MG PO SCH (07:30)
[2017-02-07] MEDS: Ascorbic Acid TAB* 500 MG PO SCH (07:30)
[2017-02-07] MEDS: Magnesium Oxide TAB* 400 MG PO SCH (07:30)
[2017-02-07] MEDS ORDERED: ceFAZolin 2 GM PREMIX (*) 2 GM/50 ML BAG IVPB ONE (07:49)
[2017-02-07] MEDS ORDERED: Bupivacaine 0.25% SDV* 30 ML ONE ×2 (08:11→08:42)
[2017-02-07] MEDS ORDERED: Lidocaine 1% MPF wEPI 200,000* 30 ML SDV ONE (08:11)
[2017-02-07] MEDS ORDERED: PROCHLORPERAZINE INJ 5 MG/ML 2 ML VIAL IV PRN (08:28)
[2017-02-07] MEDS ORDERED: oxyCODONE/Acetamin 5/325 MG* TAB PO PRN (08:28)
[2017-02-07] MEDS ORDERED: Morphine INJ* 2 MG/ML 1 ML CARPUJECT IV PRN (08:28)
[2017-02-07] MEDS ORDERED: DiMENhydriNATE IV* 50 MG/ML VIAL IV PUSH PRN (08:28)
[2017-02-07] MEDS ORDERED: fentaNYL* 50 MCG/ML 2 ML VIAL (100 MCG VIAL) IV PRN (08:28)
[2017-02-07] MEDS ORDERED: Dexamethasone IV* 4 MG/ML 1 ML (4 MG) ONE (08:42)
[2017-02-07] MEDS ORDERED: Metoprolol Tartrate IV* 1 MG/ML 5 ML VIAL ONE (08:42)
[2017-02-07] MEDS ORDERED: Phenylephrine IV* 40 MCG/ML 10 ML SYRINGE ONE (08:42)
[2017-02-07] MEDS ORDERED: Ondansetron INJ* 2 MG/ML VIAL ONE (08:42)
[2017-02-07] MEDS ORDERED: Propofol* 10 MG/ML 20 ML BTL IV PUSH ONE (08:42)
[2017-02-07] MEDS ORDERED: Lidocaine 2% PF * 5 ML VIAL ONE (08:52)
[2017-02-07] MEDS ORDERED: Ondansetron INJ* 2 MG/ML VIAL IV PRN (09:09)
[2017-02-07] MEDS ORDERED: diPHENhydraMINE PO* 25 MG PO PRN (09:09)
[2017-02-07] MEDS ORDERED: Morphine INJ* 10 MG/ML 1 ML CARPUJECT ONE (09:33)
--- NOTE | 2017-02-07 10:39 | RAD ---
Indication: Status post revision of the right knee. 2 views of the right knee demonstrates revision with bipolar knee arthroplasty. Components appear to be well seated. IMPRESSION: Reduction and revision of prior dislocation of the right knee.
[2017-02-07 12:35] LABS: ABS Basophils 0 10^3/ul (0-0.2); ABS Eosinophils 0 10^3/ul (0-0.6); ABS Lymphocytes 0.4 10^3/ul (1.0-4.8); ABS Monocytes 0.1 10^3/ul (0-0.8); ABS Neutrophils 6.2 10^3/ul (1.5-7.7); ABS Nucleated RBC 0 10^3/ul; Eosinophil % 0.3 % (0-6); Hematocrit 31 % (35-47); Hemoglobin 9.8 g/dl (12.0-16.0); Lymphocyte % 5.6 % (25-47); Mean Corpuscular HGB Conc 32 g/dl (31-36); Mean Corpuscular Hemoglobin 24 pg (27-31); Mean Platelet Volume 7 um3 (7.4-10.4); Nucleated Red Blood Cells % 0; Platelet Count 337 10^3/ul (150-450); Red Blood Count 4.14 10^6/ul (4.0-5.4); Red Cell Distribution Width 21 % (10.5-15); White Blood Count 6.8 10^3/ul (3.5-10.8)
[2017-02-07 12:49] LABS: INR 0.97 (0.77-1.02)
[2017-02-07 12:50] LABS: EGFR Non-African American 121.3 (>60)
[2017-02-07 13:00] LABS: Mean Corpuscular Volume 74 fL (80-97)
--- NOTE | 2017-02-07 14:06 | PN ---
Subjective Date of Service: 02/07/17 Interval History: pt is seen post op. Able to flex r knee and c/o no post op pain Objective Active Medications: Acetaminophen (Tylenol Tab*) 650 mg PO Q4H PRN PRN Reason: FEVER/PAIN Last Admin: 02/03/17 19:26 Dose: 650 mg Ascorbic Acid (Vitamin C Tab*) 500 mg PO DAILY [facility] Last Admin: 02/07/17 07:30 Dose: 500 mg Aspirin (Aspirin Tab*) 325 mg PO DAILY [facility] Last Admin: 02/07/17 07:30 Dose: 325 mg Baclofen (Lioresal Tab*) 10 mg PO BEDTIME [facility] Last Admin: 02/06/17 21:40 Dose: 10 mg Cyanocobalamin (Vitamin B12 Tab*) 500 mcg PO DAILY [facility] Last Admin: 02/07/17 07:30 Dose: 500 mcg Diltiazem HCl (Cardizem Cd Cap*) 120 mg PO DAILY [facility] Last Admin: 02/07/17 07:30 Dose: 120 mg Dimethyl Fumarate (Tecfidera(Nf)) 240 mg PO BID [facility] Last Admin: 02/07/17 07:30 Dose: 240 mg Diphenhydramine HCl (Benadryl Po*) 25 mg PO Q6H PRN PRN Reason: itching Docusate Sodium (Colace Cap*) 100 mg PO BID PRN PRN Reason: CONSTIPATION Last Admin: 02/05/17 09:28 Dose: 100 mg Ferrous Sulfate (Ferrous Sulfate Tab*) 325 mg PO BID [facility] Last Admin: 02/07/17 07:30 Dose: 325 mg Gabapentin (Neurontin Cap(*)) 300 mg PO BEDTIME [facility] Last Admin: 02/06/17 21:40 Dose: 300 mg Heparin Sodium (Porcine) (Heparin Vial(*)) 5,000 units SUBCUT Q8HR [facility] Ciprofloxacin/Dextrose (Cipro 400 Mg Ivpremix(*)) 400 mg in 200 mls @ 200 mls/ hr IVPB Q12H [facility] Last Admin: 02/07/17 04:44 Dose: 200 mls/hr Cefazolin Sodium/Dextrose (Kefzol 1 Gm In Dextrose Duplex (*)) 1 gm in 50 mls @ 200 mls/hr IVPB Q8H [facility] Stop: 02/08/17 08:14 Lactated Ringer's (Lactated Ringers 1000 Ml Bag*) 1,000 mls @ 100 mls/hr IV PER RATE [facility] Levothyroxine Sodium (Synthroid Tab*) 137 mcg PO 0600 [facility] Last Admin: 02/07/17 05:47 Dose: 137 mcg Magnesium Oxide (Magox 400 Tab*) 800 mg PO DAILY [facility] Last Admin: 02/07/17 07:30 Dose: 800 mg Metoprolol Tartrate (Lopressor Tab*) 12.5 mg PO Q12HR [facility] Last Admin: 02/07/17 07:28 Dose: 12.5 mg Ondansetron HCl (Zofran Inj*) 4 mg IV Q6H PRN PRN Reason: nausea Oxycodone HCl (Roxycodone Tab*) 5 mg PO Q4H PRN PRN Reason: PAIN Last Admin: 02/06/17 16:11 Dose: 5 mg Polyethylene Glycol/Electrolytes (Miralax*) 17 gm PO DAILY PRN PRN Reason: CONSTIPATION Last Admin: 02/05/17 09:28 Dose: 17 gm Sertraline HCl (Zoloft*) 100 mg PO DAILY [facility] Last Admin: 02/07/17 07:30 Dose: 100 mg Tramadol HCl (Ultram*) 50 mg PO Q6H PRN PRN Reason: PAIN Last Admin: 02/03/17 21:04 Dose: 50 mg Vital Signs - 8 hr 02/07/17 02/07/17 02/07/17 07:37 09:22 09:56 Temperature 98.3 F 97.7 F Pulse Rate 83 86 Respiratory 17 16 12 Rate Blood Pressure 119/79 118/73 (mmHg) O2 Sat by Pulse 95 98 Oximetry 02/07/17 02/07/17 02/07/17 10:00 10:05 10:15 Temperature Pulse Rate 89 83 82 Respiratory 12 12 12 Rate Blood Pressure 106/64 103/60 110/68 (mmHg) O2 Sat by Pulse 99 99 97 Oximetry 02/07/17 02/07/17 02/07/17 10:30 10:45 11:05 Temperature 97.7 F 97.4 F Pulse Rate 80 74 79 Respiratory 12 12 18 Rate Blood Pressure 108/69 114/81 111/63 (mmHg) O2 Sat by Pulse 98 96 97 Oximetry 02/07/17 02/07/17 11:13 12:09 Temperature 98.1 F Pulse Rate 88 Respiratory 16 16 Rate Blood Pressure 122/77 (mmHg) O2 Sat by Pulse 93 Oximetry Oxygen Devices in Use Now: Nasal Cannula - at 2 l Appearance: 71 yo F in nAD, aAOx3 Eyes: No Scleral Icterus, PERRLA Ears/Nose/Mouth/Throat: NL Teeth, Lips, Gums, Mucous Membranes Moist Neck: NL Appearance and Movements; NL JVP, Trachea Midline Respiratory: Symmetrical Chest Expansion and Respiratory Effort, Clear to Auscultation Cardiovascular: NL Sounds; No Murmurs; No JVD, - - irregular Abdominal: NL Sounds; No Tenderness; No Distention, No Hepatosplenomegaly Lymphatic: No Cervical Adenopathy Extremities: No Clubbing, Cyanosis Skin: No Nodules or Sclerosis, - - small, superficial, abrason like wound on coccyx stage 1-2 Neurological: Alert and Oriented x 3, - - b/l LE's weakness -unble to raise legs off bed-chronic Result Diagrams: 02/07/17 12:21 02/07/17 12:21 Microbiology and Other Data: Microbiology 02/03/17 18:15 Stool Occult Blood (DWAINE) - Final Stool Assess/Plan/Problems-Billing Assessment: Ms. Enriquez is 69 year old female with a PMH significant for MS, neurogenic bladder with Garcia, paroxysmal A. fib (not anticoagulated), b/l ankle ORIF, R knee replacement who is basically WC bound was noted to have UTI and increased weakness with falls, directly admitted form Dr. Ren's office - Patient Problems (1) Generalized weakness Comment: worse MS symptoms due to UTI, but also pt's fall was likley multifactorial due to subluxation of r knee and UTI PT/OT eval ongoing. Knee XRay showed subluxation of the prosthetic joint. Dr. Thomson operated on pt 's knee today. Pt now feels very well. Knee pain is gone (2) UTI (urinary tract infection) due to urinary indwelling Garcia catheter Comment: Garcia was exchanged at admission Urine cx from admission grew pseudomonas and ESBL klebsiella, cont cipro (3) DVT (deep venous thrombosis) Comment: doppler positive for DVT R leg. Lovenox started, then holding for periop time. Start Lovenox 40 mg daily. NOAC's and coumadin tx options d/w pt . she is considering all the options (4) Atrial fibrillation Comment: cont Cardizem PO for rate control and a lower dose of metoprolol. Pt stated that she has h/o a. fib, but never treated with anticoagulants. CHADSVasc score of 2-anticoagulation recommended. Echo shows EF 55% and mod MR (5) Microcytic anemia Comment: stool heme - was transfused 1 u PRBC on 02/06/17 for preop. Iron and TIBC levels indicate anemia of chronic disease and iron defficiency Ferrous sulfate started (6) Hyponatremia Comment: Most likely due to HCTZ HCTZ held at admission resolving (7) Hypothyroid Comment: Continue levothyroxine. TSH 1.3 11/20/16 (8) Multiple sclerosis Comment: with mild exacerbation of weakness due to UTI and recent falls as well as r knee subluxation cont Tecfidera, Baclofen (9) Hypertension Comment: Low normal. Lisinopril and HCTZ both on hold. Cardizem started for rate control. (10) DVT prophylaxis Comment: lovenox Status and Disposition: inpatient
[2017-02-07] MEDS: ceFAZolin 1 GM in Dextrose (*) 1 GM/50 ML BAG IVPB SCH ×2 (16:31→23:03)
[2017-02-07] MEDS: oxyCODONE TAB* 5 MG TAB PO PRN (17:15)
[2017-02-07] MEDS: Gabapentin CAP(*) 300 MG PO SCH (19:42)
[2017-02-07] MEDS: Baclofen TAB* 10 MG PO SCH (19:42)
[2017-02-07] MEDS: traMADol TAB* 50 MG PO PRN (23:03)
--- NOTE | 2017-02-08 03:16 | OP ---
DATE OF OPERATION: 02/07/17 - ROOM #348 DATE OF : 43 SURGEON: Ceasar Thomson MD PBX INSTALLER: Geovany Dejesus RPA ANESTHESIOLOGIST: Durga Ramirez MD ANESTHESIA: General and regional. PRE-OP DIAGNOSIS: Dislocated right total knee arthroplasty. POST-OP DIAGNOSIS: Dislocated right total knee arthroplasty. OPERATIVE PROCEDURE: 1. Open reduction, right total knee. 2. Polyethylene exchange, tibia. INDICATIONS: Ms. Enriquez is a 71-year-old female, who in 2008 had undergone a right total knee arthroplasty with Dr. Nair. Unfortunately, this became infected shortly after surgery and she underwent a washout and polyethylene exchange in [place]. She eventually underwent a revision of the knee in [place] in 2012. We do have x-rays of the knee being located in 2014, but she reports that the knee itself was always still off. She had fallen a little over 2 months ago and at that time could no longer have the right leg bear weight. She had seen the surgeon in [place], who had told her that a revision needed to be done but it would probably be unsuccessful and she would probably need an amputation. She had not followed up since then, but was still seeing her neurologist for routine followups for her MS. On Wednesday, he noted that she seemed more weak and was concerned for UTI and was sent over to the hospital as a direct admit. As part of the workup, the hospitalist had ordered PT to get her walking but when the physical therapist examined the knee, they requested the hospitalist service to get x-rays and this found a dislocated total knee. When I spoke with her, she reports that the knee has been this way for since at least the end of November as that is when even her neurologist notes that she had seen Dr. Benites in [place] with his recommendations. On exam , I was able to get the knee I thought perched, where I could get her out to length. I discussed with her that probably the post had broken or worn down and a polyethylene exchange with an open relocation would hopefully work well to give her a good stable knee. Risks of surgery such as infection, scar formation, stiffness, DVT, pulmonary embolism, and continued instability were some of the risks discussed. She had wished to proceed. ESTIMATED BLOOD LOSS: 50 cc. COMPLICATIONS: None. DESCRIPTION OF PROCEDURE: The patient was brought to the OR and an adductor canal block was placed. General anesthesia was then introduced. Tourniquet was placed over the proximal right thigh but was not used during the case. Right knee was relocated where I again thought I had her perched so that the knee would not just buckle while prepped and then the right leg was prepped. Skin over the incisional area was infiltrated using a mixture of 0.25% Marcaine with 1% lidocaine with epinephrine. Incision was made using the old scar and carried down to the subcutaneous tissues. I was able to get down to essentially the extensor mechanism and then lift full-thickness flaps over and I could find the old Ethibond sutures on the medial parapatellar arthrotomy. Parapatellar arthrotomy was then made but I actually encountered the heterotopic ossification in her quads mechanism and came a little bit more medial to that. Knee joint was instantly found and I did not damage the patellar tendon at all. Immediately, I could see that her polyethylene had spun out and was sitting at 180 degrees from where it should be with what I thought was just perching the articular surface on to the femoral condyles. I had actually fully relocated her but because of the slope of the polyethylene post, this would just slide with any pressure, once again fully dislocating. I was able to unspun the polyethylene and then bring the knee forward so that I could disassemble the rotating platform. Chris was used to send some of the synovium for culture. On the polyethylene post, it could be seen where it was specifically worn at the tip and with having spun out, It could easily been seen how this would continuously slide posteriorly causing the to dislocate. Trial was then placed with the 25, but it could be seen that with full internal rotation at 45 degrees flexion and valgus, she would disengage and the post would then miss where it would want to be dislocated. Considering her joint surface was already significantly elevated by what appeared to be about 2.5 cm, it did not appear that 30 would be any better. Knee was copiously pulse lavaged and total of 6 L would be used. New 25-mm polyethylene was then dropped into place and the knee was relocated. As long as she was not in valgus with internal rotation and 90 degrees of flexion, the knee was nice and stable. Parapatellar arthrotomy was repaired using interrupted #1 Vicryl sutures and the subcutaneous tissues were approximated using 2-0 Vicryl. Skin was closed using shine. Sterile dressing was applied in the OR. The patient had the LMA removed in the OR and was stable on transfer to the recovery room. [id number]/[facility] #: [id number] MTDD
[2017-02-08] MEDS: Ciprofloxacin 400MG IVPREMIX(* 400 MG/200 ML BAG IVPB SCH ×2 (04:11→16:04)
[2017-02-08 05:27] LABS: EGFR Non-African American 156.9 (>60)
[2017-02-08] MEDS: traMADol TAB* 50 MG PO PRN (05:44)
[2017-02-08] MEDS: Levothyroxine TAB* 137 MCG TAB PO SCH (05:44)
[2017-02-08 05:48] LABS: ABS Basophils 0 10^3/ul (0-0.2); ABS Eosinophils 0 10^3/ul (0-0.6); ABS Lymphocytes 0.9 10^3/ul (1.0-4.8); ABS Monocytes 0.7 10^3/ul (0-0.8); ABS Neutrophils 7.8 10^3/ul (1.5-7.7); ABS Nucleated RBC 0 10^3/ul; Eosinophil % 0.1 % (0-6); Hematocrit 30 % (35-47); Hemoglobin 9.5 g/dl (12.0-16.0); Mean Corpuscular HGB Conc 32 g/dl (31-36); Mean Corpuscular Hemoglobin 24 pg (27-31); Mean Platelet Volume 7 um3 (7.4-10.4); Nucleated Red Blood Cells % 0; Platelet Count 337 10^3/ul (150-450); Red Blood Count 4.05 10^6/ul (4.0-5.4); Red Cell Distribution Width 22 % (10.5-15); White Blood Count 9.4 10^3/ul (3.5-10.8)
[2017-02-08 05:53] LABS: Mean Corpuscular Volume 74 fL (80-97)
[2017-02-08] MEDS: ceFAZolin 1 GM in Dextrose (*) 1 GM/50 ML BAG IVPB SCH (07:34)
[2017-02-08] MEDS: Enoxaparin(*) 40 MG/0.4 ML SYR SUBCUT SCH (07:36)
[2017-02-08] MEDS: Ferrous Sulfate TAB* 325 MG PO SCH ×2 (09:14→20:12)
[2017-02-08] MEDS: Magnesium Oxide TAB* 400 MG PO SCH (09:15)
[2017-02-08] MEDS: Metoprolol Tartrate TAB* 25 MG PO SCH ×2 (09:15→20:14)
[2017-02-08] MEDS: Sertraline* 100 MG TAB PO SCH (09:15)
[2017-02-08] MEDS: Aspirin TAB* 325 MG PO SCH (09:15)
[2017-02-08] MEDS: Ascorbic Acid TAB* 500 MG PO SCH (09:15)
[2017-02-08] MEDS: Diltiazem CD CAP* 120 MG PO SCH (09:15)
[2017-02-08] MEDS: Cyanocobalamin TAB* 500 MCG PO SCH (09:15)
[2017-02-08] MEDS: PTO:Dimethyl Fumarate(NF) 240 MG CAP PO SCH ×2 (09:16→20:13)
[2017-02-08] MEDS: oxyCODONE TAB* 5 MG TAB PO PRN ×3 (10:59→20:13)
--- NOTE | 2017-02-08 11:21 | PN ---
Subjective Date of Service: 02/08/17 Interval History: Pt feels well, was able to sit on the side of the bed, had not gotten up,yet Objective Active Medications: Acetaminophen (Tylenol Tab*) 650 mg PO Q4H PRN PRN Reason: FEVER/PAIN Last Admin: 02/03/17 19:26 Dose: 650 mg Ascorbic Acid (Vitamin C Tab*) 500 mg PO DAILY [facility] Last Admin: 02/08/17 09:15 Dose: 500 mg Aspirin (Aspirin Tab*) 325 mg PO DAILY [facility] Last Admin: 02/08/17 09:15 Dose: 325 mg Baclofen (Lioresal Tab*) 10 mg PO BEDTIME [facility] Last Admin: 02/07/17 19:42 Dose: 10 mg Cyanocobalamin (Vitamin B12 Tab*) 500 mcg PO DAILY [facility] Last Admin: 02/08/17 09:15 Dose: 500 mcg Diltiazem HCl (Cardizem Cd Cap*) 120 mg PO DAILY [facility] Last Admin: 02/08/17 09:15 Dose: 120 mg Dimethyl Fumarate (Tecfidera(Nf)) 240 mg PO BID [facility] Last Admin: 02/08/17 09:16 Dose: 240 mg Diphenhydramine HCl (Benadryl Po*) 25 mg PO Q6H PRN PRN Reason: itching Docusate Sodium (Colace Cap*) 100 mg PO BID PRN PRN Reason: CONSTIPATION Last Admin: 02/05/17 09:28 Dose: 100 mg Enoxaparin Sodium (Lovenox(*)) 40 mg SUBCUT Q24H [facility] Last Admin: 02/08/17 07:36 Dose: 40 mg Ferrous Sulfate (Ferrous Sulfate Tab*) 325 mg PO BID [facility] Last Admin: 02/08/17 09:14 Dose: 325 mg Gabapentin (Neurontin Cap(*)) 300 mg PO BEDTIME [facility] Last Admin: 02/07/17 19:42 Dose: 300 mg Ciprofloxacin/Dextrose (Cipro 400 Mg Ivpremix(*)) 400 mg in 200 mls @ 200 mls/ hr IVPB Q12H [facility] Last Admin: 02/08/17 04:11 Dose: 200 mls/hr Levothyroxine Sodium (Synthroid Tab*) 137 mcg PO 0600 [facility] Last Admin: 02/08/17 05:44 Dose: 137 mcg Magnesium Oxide (Magox 400 Tab*) 800 mg PO DAILY [facility] Last Admin: 02/08/17 09:15 Dose: 800 mg Metoprolol Tartrate (Lopressor Tab*) 12.5 mg PO Q12HR [facility] Last Admin: 02/08/17 09:15 Dose: 12.5 mg Ondansetron HCl (Zofran Inj*) 4 mg IV Q6H PRN PRN Reason: nausea Oxycodone HCl (Roxycodone Tab*) 5 mg PO Q4H PRN PRN Reason: PAIN Last Admin: 02/08/17 10:59 Dose: 5 mg Polyethylene Glycol/Electrolytes (Miralax*) 17 gm PO DAILY PRN PRN Reason: CONSTIPATION Last Admin: 02/05/17 09:28 Dose: 17 gm Sertraline HCl (Zoloft*) 100 mg PO DAILY [facility] Last Admin: 02/08/17 09:15 Dose: 100 mg Tramadol HCl (Ultram*) 50 mg PO Q6H PRN PRN Reason: PAIN Last Admin: 02/08/17 05:44 Dose: 50 mg Vital Signs - 8 hr 02/08/17 02/08/17 02/08/17 03:52 05:44 07:34 Temperature 97.5 F 99.4 F Pulse Rate 96 98 Respiratory 16 16 16 Rate Blood Pressure 134/85 131/84 (mmHg) O2 Sat by Pulse 90 94 Oximetry 02/08/17 02/08/17 02/08/17 08:00 08:17 10:59 Temperature Pulse Rate Respiratory 16 16 16 Rate Blood Pressure (mmHg) O2 Sat by Pulse 94 Oximetry Oxygen Devices in Use Now: None Appearance: 71 yo f in nAD, aAOx3 Eyes: No Scleral Icterus, PERRLA Ears/Nose/Mouth/Throat: NL Teeth, Lips, Gums, Mucous Membranes Moist Neck: NL Appearance and Movements; NL JVP, Trachea Midline Respiratory: Symmetrical Chest Expansion and Respiratory Effort, Clear to Auscultation Cardiovascular: NL Sounds; No Murmurs; No JVD, - - irregular Abdominal: NL Sounds; No Tenderness; No Distention, No Hepatosplenomegaly Lymphatic: No Cervical Adenopathy Extremities: No Clubbing, Cyanosis, - - b/l leg edema R>L, R knee in cryo unit post op Skin: No Nodules or Sclerosis, - - hemosiderin depositions in skin of b/l feet Neurological: Alert and Oriented x 3, - - b/l LE's weakness Result Diagrams: 02/08/17 04:55 02/08/17 04:55 Microbiology and Other Data: Microbiology 02/03/17 18:15 Stool Occult Blood (DWAINE) - Final Stool Assess/Plan/Problems-Billing Assessment: Ms. Enriquez is 69 year old female with a PMH significant for MS, neurogenic bladder with Garcia, paroxysmal A. fib (not anticoagulated), b/l ankle ORIF, R knee replacement who is basically WC bound was noted to have UTI and increased weakness with falls, directly admitted form Dr. Ren's office - Patient Problems (1) Generalized weakness Comment: worse MS symptoms due to UTI, but also pt's fall was likley multifactorial due to subluxation of r knee and UTI PT/OT eval ongoing. Knee XRay showed subluxation of the prosthetic joint. Dr. Thomson operated on pt 's knee today. Pt now feels very well. (2) UTI (urinary tract infection) due to urinary indwelling Garcia catheter Comment: Garcia was exchanged at admission Urine cx from admission grew pseudomonas and ESBL klebsiella, cont cipro (3) DVT (deep venous thrombosis) Comment: doppler positive for DVT R leg. Lovenox started, then held for periop time. now on Lovenox 40 mg daily. will d/w sugery when pt can be fully anticoagulated again NOAC's and coumadin tx options d/w pt . she is considering all the options (4) Atrial fibrillation Comment: cont Cardizem PO for rate control and a lower dose of metoprolol. Pt stated that she has h/o a. fib, but never treated with anticoagulants. CHADSVasc score of 2-anticoagulation recommended. Echo shows EF 55% and mod MR (5) Microcytic anemia Comment: stool heme neg, was transfused 1 u PRBC on 02/06/17 for preop. Iron and TIBC levels indicate anemia of chronic disease and iron defficiency Ferrous sulfate started (6) Hyponatremia Comment: Most likely due to HCTZ HCTZ held at admission resolving (7) Hypothyroid Comment: Continue levothyroxine. TSH 1.3 11/20/16 (8) Multiple sclerosis Comment: with mild exacerbation of weakness due to UTI and recent falls as well as r knee subluxation cont Tecfidera, Baclofen (9) Hypertension Comment: Low normal. Lisinopril and HCTZ both on hold. Cardizem started for rate control. (10) DVT prophylaxis Comment: lovenox Status and Disposition: inpatient
--- NOTE | 2017-02-08 12:54 | PN ---
Progress Note - Progress Note Date of Service: 02/08/17 SOAP: Subjective: Pt laying bed, had tried to be OOB ealier. Knee does hurt, more when she was trying to WB, but hasn't been able to WB for over 2 months. Objective: VSS: afebrile Labs: H/H: 9.07/14 Right knee- dressing C/D/I. Less swelling about foot/leg than yesterday Assessment: Stable Plan: Cont: OOB/PT, DVT prophalaxis- can start lovenox or any other preferred agent tomorrow. Repeat US tomorrow- original US did not show a DVT, but because of the impressive soft tissue swelling, it was believed there had to be one. Knee dislocation was not identified at that point and I would postulate the dislocation was the cause of the swelling. Discussed with her the cause of the dislocation- she had a spin out of the poly. The knee is a rotating platform, and the plastic was spun 180 degrees from where it was supposed to be. While under anesthesia, I identified the knee is unstable with the poly becoming disengaged from the femoral component when the knee is internally rotated, flexed and valgus stressed. This could happen if the knee collapses inward while she turns to the right. A revision of the femoral component could fix that, but that would be a larger surgery and recovery to say the least. The right leg is her stronger leg with the left being weaker due to the MS, so a larger revision surgery is not on the table at this point.
[2017-02-08] MEDS ORDERED: Heparin VIAL(*) 5000 UNITS/ML VIAL (FIVE THOUSAND) SUBCUT SCH (14:00)
[2017-02-08] MEDS: Gabapentin CAP(*) 300 MG PO SCH (20:12)
[2017-02-08] MEDS: Baclofen TAB* 10 MG PO SCH (20:13)
[2017-02-09] MEDS: Ciprofloxacin 400MG IVPREMIX(* 400 MG/200 ML BAG IVPB SCH (03:29)
[2017-02-09] MEDS: Levothyroxine TAB* 137 MCG TAB PO SCH (05:51)
[2017-02-09 05:59] LABS: Hematocrit 31 % (35-47); Mean Platelet Volume 7 um3 (7.4-10.4); Platelet Count 304 10^3/ul (150-450)
[2017-02-09] MEDS: Magnesium Oxide TAB* 400 MG PO SCH (09:24)
[2017-02-09] MEDS: Cyanocobalamin TAB* 500 MCG PO SCH (09:24)
[2017-02-09] MEDS: PTO:Dimethyl Fumarate(NF) 240 MG CAP PO SCH ×2 (09:24→21:54)
[2017-02-09] MEDS: Aspirin TAB* 325 MG PO SCH (09:24)
[2017-02-09] MEDS: Sertraline* 100 MG TAB PO SCH (09:24)
[2017-02-09] MEDS: Diltiazem CD CAP* 120 MG PO SCH (09:24)
[2017-02-09] MEDS: Metoprolol Tartrate TAB* 25 MG PO SCH ×2 (09:24→21:56)
[2017-02-09] MEDS: Ascorbic Acid TAB* 500 MG PO SCH (09:25)
[2017-02-09] MEDS: oxyCODONE TAB* 5 MG TAB PO PRN ×3 (09:25→22:48)
[2017-02-09] MEDS: Ferrous Sulfate TAB* 325 MG PO SCH ×2 (09:25→21:54)
[2017-02-09] MEDS: Enoxaparin(*) 40 MG/0.4 ML SYR SUBCUT SCH (09:29)
--- NOTE | 2017-02-09 11:01 | PN ---
Subjective Date of Service: 02/09/17 Interval History: Pt feels well. Talked about anticoagulation options and pt decided on Xarelto Objective Active Medications: Acetaminophen (Tylenol Tab*) 650 mg PO Q4H PRN PRN Reason: FEVER/PAIN Last Admin: 02/03/17 19:26 Dose: 650 mg Ascorbic Acid (Vitamin C Tab*) 500 mg PO DAILY [facility] Last Admin: 02/09/17 09:25 Dose: 500 mg Aspirin (Aspirin Tab*) 325 mg PO DAILY [facility] Last Admin: 02/09/17 09:24 Dose: 325 mg Baclofen (Lioresal Tab*) 10 mg PO BEDTIME [facility] Last Admin: 02/08/17 20:13 Dose: 10 mg Cyanocobalamin (Vitamin B12 Tab*) 500 mcg PO DAILY [facility] Last Admin: 02/09/17 09:24 Dose: 500 mcg Diltiazem HCl (Cardizem Cd Cap*) 120 mg PO DAILY [facility] Last Admin: 02/09/17 09:24 Dose: 120 mg Dimethyl Fumarate (Tecfidera(Nf)) 240 mg PO BID [facility] Last Admin: 02/09/17 09:24 Dose: 240 mg Diphenhydramine HCl (Benadryl Po*) 25 mg PO Q6H PRN PRN Reason: itching Docusate Sodium (Colace Cap*) 100 mg PO BID PRN PRN Reason: CONSTIPATION Last Admin: 02/05/17 09:28 Dose: 100 mg Enoxaparin Sodium (Lovenox(*)) 40 mg SUBCUT Q24H [facility] Last Admin: 02/09/17 09:29 Dose: 40 mg Ferrous Sulfate (Ferrous Sulfate Tab*) 325 mg PO BID [facility] Last Admin: 02/09/17 09:25 Dose: 325 mg Gabapentin (Neurontin Cap(*)) 300 mg PO BEDTIME [facility] Last Admin: 02/08/17 20:12 Dose: 300 mg Ciprofloxacin/Dextrose (Cipro 400 Mg Ivpremix(*)) 400 mg in 200 mls @ 200 mls/ hr IVPB Q12H [facility] Last Admin: 02/09/17 03:29 Dose: 200 mls/hr Levothyroxine Sodium (Synthroid Tab*) 137 mcg PO 0600 [facility] Last Admin: 02/09/17 05:51 Dose: 137 mcg Magnesium Oxide (Magox 400 Tab*) 800 mg PO DAILY [facility] Last Admin: 02/09/17 09:24 Dose: 800 mg Metoprolol Tartrate (Lopressor Tab*) 12.5 mg PO Q12HR [facility] Last Admin: 02/09/17 09:24 Dose: 12.5 mg Ondansetron HCl (Zofran Inj*) 4 mg IV Q6H PRN PRN Reason: nausea Oxycodone HCl (Roxycodone Tab*) 5 mg PO Q4H PRN PRN Reason: PAIN Last Admin: 02/09/17 09:25 Dose: 5 mg Polyethylene Glycol/Electrolytes (Miralax*) 17 gm PO DAILY PRN PRN Reason: CONSTIPATION Last Admin: 02/05/17 09:28 Dose: 17 gm Sertraline HCl (Zoloft*) 100 mg PO DAILY [facility] Last Admin: 02/09/17 09:24 Dose: 100 mg Tramadol HCl (Ultram*) 50 mg PO Q6H PRN PRN Reason: PAIN Last Admin: 02/08/17 05:44 Dose: 50 mg Vital Signs - 8 hr 02/09/17 02/09/17 02/09/17 03:36 07:28 09:25 Temperature 97.8 F 97.7 F Pulse Rate 54 70 Respiratory 16 16 18 Rate Blood Pressure 119/73 137/74 (mmHg) O2 Sat by Pulse 96 95 Oximetry Oxygen Devices in Use Now: None Appearance: 71 yo f in nAD, aAOx3 Eyes: No Scleral Icterus, PERRLA Ears/Nose/Mouth/Throat: NL Teeth, Lips, Gums, Mucous Membranes Moist Neck: NL Appearance and Movements; NL JVP, Trachea Midline Respiratory: Symmetrical Chest Expansion and Respiratory Effort, Clear to Auscultation Cardiovascular: NL Sounds; No Murmurs; No JVD, - - iregular Abdominal: NL Sounds; No Tenderness; No Distention, No Hepatosplenomegaly Lymphatic: No Cervical Adenopathy Extremities: No Clubbing, Cyanosis, - - leg edema b/l -greatly improved, no feet edema noted Skin: No Nodules or Sclerosis, - - b/l feet ecchymosis+venous stasis disoloration, R knee in cryo unit, stage 2 coccyx area wound noted at 1-4 cm , linear abrasion like Neurological: Alert and Oriented x 3, - - cannot raise b/l legs off bed Result Diagrams: 02/09/17 05:52 02/08/17 04:55 Microbiology and Other Data: Microbiology 02/03/17 18:15 Stool Occult Blood (DWAINE) - Final Stool Assess/Plan/Problems-Billing Assessment: Ms. Enriquez is 69 year old female with a PMH significant for MS, neurogenic bladder with Garcia, paroxysmal A. fib (not anticoagulated), b/l ankle ORIF, R knee replacement who is basically WC bound was noted to have UTI and increased weakness with falls, directly admitted form Dr. Ren's office - Patient Problems (1) Generalized weakness Comment: worse MS symptoms due to UTI, but also pt's fall was likely multifactorial due to subluxation of r knee and UTI PT/OT eval ongoing. Knee XRay showed subluxation of the prosthetic joint. Dr. Thomson operated on pt 's knee on 02/07/17. Pt now feels very well but as per ortho notes she is still at risk of recurrent dislocation and more involved surgery would be pose pt at more risk at this point (2) UTI (urinary tract infection) due to urinary indwelling Garcia catheter Comment: Garcia was exchanged at admission Urine cx from admission grew pseudomonas and ESBL klebsiella, cont cipro, plan for a total of 7 days. (3) DVT (deep venous thrombosis) Comment: doppler positive for DVT R leg, but that was when the knee was dislocated and no flow noted in the veins -that could have been due to distorted anatomy of the knee and not true DVT. Repeat Dopplers pending Pt needs to be anticoagulated due to a. fib also and Lovenox full dose will be restarted tonight-D/w Dr. 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 Plan to start it once Hb stable on lovenox x 24-48h. (4) Atrial fibrillation Comment: Cont Cardizem PO for rate control and a lower dose of metoprolol. Pt stated that she has h/o a. fib, but never treated with anticoagulants. CHADSVasc score of 2-anticoagulation recommended. Echo shows EF 55% and mod MR (5) Microcytic anemia Comment: stool heme neg, was transfused 1 u PRBC on 02/06/17 for preop. Iron and TIBC levels indicate anemia of chronic disease and iron defficiency Ferrous sulfate started (6) Hyponatremia Comment: chronic, exacerbated by HCTZ HCTZ held at admission resolving (7) Hypothyroid Comment: Continue levothyroxine. TSH 1.3 11/20/16 (8) Multiple sclerosis Comment: with mild exacerbation of weakness due to UTI and recent falls as well as r knee subluxation cont Tecfidera, Baclofen (9) Hypertension Comment: Low normal. Lisinopril and HCTZ both on hold. Cardizem started for rate control. (10) Decubital ulcer Comment: pressure wound on coccyx-looks like an abrasion, stage 2, wound care appreciated, barrier cream and repositioning ordered. (11) DVT prophylaxis Comment: lovenox Status and Disposition: inpatient, d/c to STR in approx 2 days
--- NOTE | 2017-02-09 11:55 | RAD ---
Indication: Right leg edema history of right DVT. Duplex Doppler sonography of the deep venous system of the right lower extremity deep venous system was performed. Bilaterally the common femoral veins appear patent and compressible. Right proximal greater saphenous vein, proximal deep femoral vein, femoral vein, popliteal vein, appear patent and compressible. Popliteal cyst is noted. The calf veins are not well demonstrated. IMPRESSION: NO EVIDENCE OF DEEP VENOUS THROMBOSIS IS IDENTIFIED. CALF VESSELS ARE NOT WELL DEMONSTRATED DUE TO EDEMA. POPLITEAL CYST IS NOTED.
[2017-02-09] MEDS: Ciprofloxacin TAB* 500 MG PO SCH (21:53)
[2017-02-09] MEDS: Baclofen TAB* 10 MG PO SCH (21:53)
[2017-02-09] MEDS: Gabapentin CAP(*) 300 MG PO SCH (21:54)
[2017-02-09] MEDS: Enoxaparin(*) 100 MG/ML SYR SUBCUT SCH (21:57)
[2017-02-09] MEDS: Docusate CAP* 100 MG PO PRN (22:49)
[2017-02-10 06:00] LABS: ABS Basophils 0.2 10^3/ul (0-0.2); ABS Eosinophils 0.2 10^3/ul (0-0.6); ABS Lymphocytes 1.7 10^3/ul (1.0-4.8); ABS Monocytes 1.1 10^3/ul (0-0.8); ABS Neutrophils 6.1 10^3/ul (1.5-7.7); ABS Nucleated RBC 0 10^3/ul; Eosinophil % 1.7 % (0-6); Hematocrit 31 % (35-47); Hemoglobin 9.9 g/dl (12.0-16.0); Lymphocyte % 18.8 % (25-47); Mean Corpuscular HGB Conc 32 g/dl (31-36); Mean Corpuscular Hemoglobin 24 pg (27-31); Mean Corpuscular Volume 74 fL (80-97); Mean Platelet Volume 7 um3 (7.4-10.4); Nucleated Red Blood Cells % 0; Platelet Count 360 10^3/ul (150-450); Red Blood Count 4.19 10^6/ul (4.0-5.4); White Blood Count 9.2 10^3/ul (3.5-10.8)
[2017-02-10] MEDS: Levothyroxine TAB* 137 MCG TAB PO SCH (06:00)
[2017-02-10 06:01] LABS: Red Cell Distribution Width 22 % (10.5-15)
[2017-02-10 06:21] LABS: EGFR Non-African American 140.6 (>60)
[2017-02-10] MEDS: oxyCODONE TAB* 5 MG TAB PO PRN ×3 (08:05→22:16)
--- NOTE | 2017-02-10 08:50 | PN ---
Subjective Date of Service: 02/10/17 Interval History: Pt states she woke up this AM feeling dizzy. When asked what she means by dizzy she states lightheaded. She denies any change in symptoms with change in position. She states she has not been eating/drinking well due to lack of appetite. She also c/o SOB but appears comfortable. Nursing notes she did develop a slight cough on 02/08/17. She states her R knee is painful intermittently but in general much better than on admission. She used the EZ stand to get up to the chair yesterday. Family History: Unchanged from Admission Social History: Unchanged from Admission Past Medical History: Unchanged from Admission Objective Active Medications: Acetaminophen (Tylenol Tab*) 650 mg PO Q4H PRN PRN Reason: FEVER/PAIN Last Admin: 02/03/17 19:26 Dose: 650 mg Ascorbic Acid (Vitamin C Tab*) 500 mg PO DAILY [facility] Last Admin: 02/09/17 09:25 Dose: 500 mg Aspirin (Aspirin Tab*) 325 mg PO DAILY [facility] Last Admin: 02/09/17 09:24 Dose: 325 mg Baclofen (Lioresal Tab*) 10 mg PO BEDTIME [facility] Last Admin: 02/09/17 21:53 Dose: 10 mg Ciprofloxacin (Cipro Tab*) 500 mg PO BID [facility] Stop: 02/10/17 23:00 Last Admin: 02/09/17 21:53 Dose: 500 mg Cyanocobalamin (Vitamin B12 Tab*) 500 mcg PO DAILY [facility] Last Admin: 02/09/17 09:24 Dose: 500 mcg Diltiazem HCl (Cardizem Cd Cap*) 120 mg PO DAILY [facility] Last Admin: 02/09/17 09:24 Dose: 120 mg Dimethyl Fumarate (Tecfidera(Nf)) 240 mg PO BID [facility] Last Admin: 02/09/17 21:54 Dose: 240 mg Diphenhydramine HCl (Benadryl Po*) 25 mg PO Q6H PRN PRN Reason: itching Docusate Sodium (Colace Cap*) 100 mg PO BID PRN PRN Reason: CONSTIPATION Last Admin: 02/09/17 22:49 Dose: 100 mg Enoxaparin Sodium (Lovenox(*)) 90 mg SUBCUT Q12H [facility] Last Admin: 02/09/17 21:57 Dose: 90 mg Ferrous Sulfate (Ferrous Sulfate Tab*) 325 mg PO BID [facility] Last Admin: 02/09/17 21:54 Dose: 325 mg Gabapentin (Neurontin Cap(*)) 300 mg PO BEDTIME [facility] Last Admin: 02/09/17 21:54 Dose: 300 mg Levothyroxine Sodium (Synthroid Tab*) 137 mcg PO 0600 [facility] Last Admin: 02/10/17 06:00 Dose: 137 mcg Magnesium Oxide (Magox 400 Tab*) 800 mg PO DAILY [facility] Last Admin: 02/09/17 09:24 Dose: 800 mg Metoprolol Tartrate (Lopressor Tab*) 12.5 mg PO Q12HR [facility] Last Admin: 02/09/17 21:56 Dose: 12.5 mg Ondansetron HCl (Zofran Inj*) 4 mg IV Q6H PRN PRN Reason: nausea Oxycodone HCl (Roxycodone Tab*) 5 mg PO Q4H PRN PRN Reason: PAIN Last Admin: 02/10/17 08:05 Dose: 5 mg Polyethylene Glycol/Electrolytes (Miralax*) 17 gm PO DAILY PRN PRN Reason: CONSTIPATION Last Admin: 02/05/17 09:28 Dose: 17 gm Sertraline HCl (Zoloft*) 100 mg PO DAILY [facility] Last Admin: 02/09/17 09:24 Dose: 100 mg Tramadol HCl (Ultram*) 50 mg PO Q6H PRN PRN Reason: PAIN Last Admin: 02/08/17 05:44 Dose: 50 mg Vital Signs - 8 hr 02/10/17 02/10/17 02/10/17 00:44 00:46 04:02 Temperature 98.0 F Pulse Rate 54 Respiratory 14 14 16 Rate Blood Pressure 117/66 (mmHg) O2 Sat by Pulse 98 Oximetry 02/10/17 02/10/17 07:17 08:05 Temperature 98.0 F Pulse Rate 96 Respiratory 16 16 Rate Blood Pressure 139/76 (mmHg) O2 Sat by Pulse 97 Oximetry Oxygen Devices in Use Now: None Appearance: Elderly female sitting up in bed, appears slightly flushed, NAD Eyes: No Scleral Icterus Ears/Nose/Mouth/Throat: Mucous Membranes Moist Respiratory: Symmetrical Chest Expansion and Respiratory Effort, Clear to Auscultation Cardiovascular: NL Sounds; No Murmurs; No JVD, - - irregularly irregular, controlled rate, LE edema unable to be evaluated as leg wrapped in EDGAR wrap Abdominal: NL Sounds; No Tenderness; No Distention Extremities: No Clubbing, Cyanosis Skin: No Nodules or Sclerosis Neurological: Alert and Oriented x 3 Result Diagrams: 02/10/17 05:50 02/10/17 05:50 Microbiology and Other Data: Microbiology 02/03/17 18:15 Stool Occult Blood (DWAINE) - Final Stool Assess/Plan/Problems-Billing Ms. 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 fib (not anticoagulated), b/l ankle ORIF, R knee replacement who is basically WC bound was noted to have UTI and increased weakness with falls, directly admitted form Dr. Ren's office. - Patient Problems (1) Generalized weakness Current Visit: Yes Status: Acute Code(s): R53.1 - WEAKNESS SNOMED Code(s) : 99661053 Comment: Weakness and inability to ambulate initially felt to be secondary to ESBL klebsiella and pseudomonas UTI in setting of chronic simmons. She is on D# 7/7 of cipro (will complete tonight). Her inability to walk however was likely related to her subsequently identified R total knee dislocation which is now repaired. Continue PT. She will need STR. (2) Dislocation of knee, posterior, right, closed Current Visit: Yes Status: Acute Code(s): S83.124A - POSTERIOR DISLOC OF PROXIMAL END OF TIBIA, RIGHT KNEE, INIT SNOMED Code(s): 32554394 Comment: The patient was found to have a posteriorly dislocated proximal tibia (the pt is s/p R TKA) day after admission. She is s/p open reduction R total knee and polyethylene exchange, tibia. She has mild pain, much better than on admission. The patient has reportedly been hesitant to bear weight. Continue to work with PT. She will need STR. (3) Atrial fibrillation Current Visit: Yes Status: Acute Code(s): I48.91 - UNSPECIFIED ATRIAL FIBRILLATION SNOMED Code(s): 22119920 Comment: HR is under good control on diltiazem CD 120mg daily and metoprolol tartrate 12.5mg BID. Will continue both of these and change from lovenox to xarelto for stroke prevention. (4) Hyponatremia Current Visit: Yes Status: Acute Code(s): E87.1 - HYPO-OSMOLALITY AND HYPONATREMIA SNOMED Code(s): 97867000 Comment: Chronic hyponatremia. Appears to be stable. Monitor intermittently. Continue to hold HCTZ. (5) Microcytic anemia Current Visit: Yes Status: Acute Code(s): D50.9 - IRON DEFICIENCY ANEMIA, UNSPECIFIED SNOMED Code(s): 096758562 Comment: H/H stable. She received 1 unit PRBC pre-op without significant change in her H/H. Stool guaiac negative. Check ferritin level to help differentiate between iron deficiency and anemia of chronic disease. (6) Decubital ulcer Current Visit: Yes Status: Acute Code(s): L89.90 - PRESSURE ULCER OF UNSPECIFIED SITE, UNSPECIFIED STAGE SNOMED Code(s): 602733643 Comment: Stage II pressure ulcer noted on her coccyx. Cntinue barrier cream and pressure relieving measures. (7) Hypertension Current Visit: No Status: Chronic Priority: Medium Code(s): I10 - ESSENTIAL (PRIMARY) HYPERTENSION SNOMED Code(s): 87145856 Comment: Low normal. Lisinopril and HCTZ both on hold. Cardizem started for rate control. (8) Multiple sclerosis Current Visit: Yes Status: Chronic Code(s): G35 - MULTIPLE SCLEROSIS SNOMED Code(s): 27563755 Comment: Continue Tecfidera and baclofen. (9) Hypothyroid Current Visit: Yes Status: Chronic Code(s): E03.9 - HYPOTHYROIDISM, UNSPECIFIED SNOMED Code(s): 49021318 Comment: TSH in appropriate range. Continue current dose of synthroid. (10) Neurogenic bladder Current Visit: Yes Status: Chronic Code(s): N31.9 - NEUROMUSCULAR DYSFUNCTION OF BLADDER, UNSPECIFIED SNOMED Code(s): 995470923 Comment: Pt has chronic simmons. Simmons exchanged earlier this hospitalization. (11) DVT prophylaxis Current Visit: Yes Status: Acute Code(s): CYH4761 - SNOMED Code(s): 056510043 Comment: keara (12) Full code status Current Visit: Yes Status: Acute Code(s): Z78.9 - OTHER SPECIFIED HEALTH STATUS SNOMED Code(s): 272674046 Status and Disposition: await bed offer for STR
[2017-02-10] MEDS ORDERED: NS 0.9% 1000 ML* 1,000 ML IV SCH (09:15)
[2017-02-10] MEDS ORDERED: Rivaroxaban TAB(*) 20 MG TAB PO SCH (10:00)
[2017-02-10] MEDS: Cyanocobalamin TAB* 500 MCG PO SCH (10:14)
[2017-02-10] MEDS: Aspirin TAB* 325 MG PO SCH (10:14)
[2017-02-10] MEDS: Sertraline* 100 MG TAB PO SCH (10:15)
[2017-02-10] MEDS: Diltiazem CD CAP* 120 MG PO SCH (10:15)
[2017-02-10] MEDS: Ciprofloxacin TAB* 500 MG PO SCH ×2 (10:15→19:38)
[2017-02-10] MEDS: Magnesium Oxide TAB* 400 MG PO SCH (10:15)
[2017-02-10] MEDS: Metoprolol Tartrate TAB* 25 MG PO SCH ×2 (10:16→19:38)
[2017-02-10] MEDS: Ascorbic Acid TAB* 500 MG PO SCH (10:16)
[2017-02-10] MEDS: Ferrous Sulfate TAB* 325 MG PO SCH ×2 (10:16→19:38)
[2017-02-10] MEDS: PTO:Dimethyl Fumarate(NF) 240 MG CAP PO SCH ×2 (10:17→19:38)
[2017-02-10] MEDS: Enoxaparin(*) 100 MG/ML SYR SUBCUT SCH (10:20)
[2017-02-10] MEDS: traMADol TAB* 50 MG PO PRN (11:03)
[2017-02-10] MEDS: Polyethylene Glycol 3350* 17 GM PACKET PO PRN (11:04)
--- NOTE | 2017-02-10 15:58 | RAD ---
Indication: Evaluate for dislocation. 2 views of the right knee demonstrates posterior dislocation of the right knee prosthesis of the tibia. IMPRESSION: Posterior dislocation of tibial component of the right knee prosthesis.
--- NOTE | 2017-02-10 18:25 | PN ---
Progress Note - Progress Note Date of Service: 02/10/17 SOAP: Subjective: 71 y/o female presented with dislocated R TKA underwent open reduction R total knee and polyethylene exchange on 02/07/[address] Thomson. Post op day 3. Patient lying comfortably in bed. She did try to do transfers earlier with PT but had to have max assists. Denies any numbness, tingling, fevers, chills, N/V , no SOB, CP. No bowel movement after surgery. Objective: General: 71 y/o female lying comfortable in bed in NAD, A&Ox3. Vital signs stable overnight. MSK: R LE: dressing C/D/I. Mild swelling at foot/ankle. Able to wiggle toes, dorsiflex/plantarflex ankle. 2+ pedal pulses. Vital Signs Temp 98.6 F 02/10/17 15:31 Pulse 65 02/10/17 15:31 Resp 18 02/10/17 15:31 BP 108/65 02/10/17 15:31 Pulse Ox 96 02/10/17 16:00 Intake & Output 02/09/17 02/10/17 02/10/17 18:59 06:59 18:59 Intake Total 425 640 815 Output Total 550 475 450 Balance -125 165 365 Intake: Oral 425 640 815 Output: Garcia 550 475 450 Other: # Bowel Movements 0 Laboratory Results - last 24 hr 02/10/17 02/10/17 05:50 05:50 WBC 9.2 RBC 4.19 Hgb 9.9 L Hct 31 L MCV 74 L MCH 24 L MCHC 32 RDW 22 H Plt Count 360 MPV 7 L Neut % (Auto) 66.3 Lymph % (Auto) 18.8 L Hardeman % (Auto) 11.5 H Eos % (Auto) 1.7 Baso % (Auto) 1.7 Absolute Neuts (auto) 6.1 Absolute Lymphs (auto) 1.7 Absolute Monos (auto) 1.1 H Absolute Eos (auto) 0.2 Absolute Basos (auto) 0.2 Absolute Nucleated RBC 0 Nucleated RBC % 0 Sodium 130 L Potassium 4.3 Chloride 96 L Carbon Dioxide 26 Anion Gap 8 BUN 12 Creatinine 0.44 L Est GFR ( Amer) 180.8 Est GFR (Non-Af Amer) 140.6 BUN/Creatinine Ratio 27.3 H Glucose 103 H Calcium 8.6 Ferritin 121.2 Assessment: 71 y/o femal s/p R total knee open reduction and polyethylene exchange on with Dr. Thomson. Post-op day 3. Right LE swelling Plan: 1. R total knee open reduction and polyethylene exchange - Patient not able to transfer without max assist, continue working with PT - Likely need to be d/c to rehab facility - Xeralto for DVT prophylaxis. 2. R LE swelling - Vascular US on 02/09 negative for DVT - Continue xeralto for DVT prophylaxis 3. Constipation - Likely 2/2 anesthesia, may need additional bowel agents, defer to hospitalist for management.
[2017-02-10] MEDS: Gabapentin CAP(*) 300 MG PO SCH (19:38)
[2017-02-10] MEDS: Baclofen TAB* 10 MG PO SCH (19:38)
[2017-02-11 05:19] LABS: Hematocrit 29 % (35-47); Hemoglobin 9.4 g/dl (12.0-16.0); Mean Platelet Volume 7 um3 (7.4-10.4); Platelet Count 363 10^3/ul (150-450)
[2017-02-11] MEDS: oxyCODONE TAB* 5 MG TAB PO PRN ×3 (05:56→20:30)
[2017-02-11] MEDS: Levothyroxine TAB* 137 MCG TAB PO SCH (05:57)
--- NOTE | 2017-02-11 08:03 | PN ---
Subjective Date of Service: 02/11/17 Interval History: Pt is feeling ok this AM. She denies any pain in her R knee at this time. She denies any chest pain or SOB. Lightheadedness has resolved. Family History: Unchanged from Admission Social History: Unchanged from Admission Past Medical History: Unchanged from Admission Objective Active Medications: Acetaminophen (Tylenol Tab*) 650 mg PO Q4H PRN PRN Reason: FEVER/PAIN Last Admin: 02/03/17 19:26 Dose: 650 mg Ascorbic Acid (Vitamin C Tab*) 500 mg PO DAILY [facility] Last Admin: 02/10/17 10:16 Dose: 500 mg Aspirin (Aspirin Tab*) 325 mg PO DAILY [facility] Last Admin: 02/10/17 10:14 Dose: 325 mg Baclofen (Lioresal Tab*) 10 mg PO BEDTIME [facility] Last Admin: 02/10/17 19:38 Dose: 10 mg Cyanocobalamin (Vitamin B12 Tab*) 500 mcg PO DAILY [facility] Last Admin: 02/10/17 10:14 Dose: 500 mcg Diltiazem HCl (Cardizem Cd Cap*) 120 mg PO DAILY [facility] Last Admin: 02/10/17 10:15 Dose: 120 mg Dimethyl Fumarate (Tecfidera(Nf)) 240 mg PO BID [facility] Last Admin: 02/10/17 19:38 Dose: 240 mg Diphenhydramine HCl (Benadryl Po*) 25 mg PO Q6H PRN PRN Reason: itching Docusate Sodium (Colace Cap*) 100 mg PO BID PRN PRN Reason: CONSTIPATION Last Admin: 02/09/17 22:49 Dose: 100 mg Ferrous Sulfate (Ferrous Sulfate Tab*) 325 mg PO BID [facility] Last Admin: 02/10/17 19:38 Dose: 325 mg Gabapentin (Neurontin Cap(*)) 300 mg PO BEDTIME [facility] Last Admin: 02/10/17 19:38 Dose: 300 mg Levothyroxine Sodium (Synthroid Tab*) 137 mcg PO 0600 [facility] Last Admin: 02/11/17 05:57 Dose: 137 mcg Magnesium Oxide (Magox 400 Tab*) 800 mg PO DAILY [facility] Last Admin: 02/10/17 10:15 Dose: 800 mg Metoprolol Tartrate (Lopressor Tab*) 12.5 mg PO Q12HR [facility] Last Admin: 02/10/17 19:38 Dose: 12.5 mg Ondansetron HCl (Zofran Inj*) 4 mg IV Q6H PRN PRN Reason: nausea Oxycodone HCl (Roxycodone Tab*) 5 mg PO Q4H PRN PRN Reason: PAIN Last Admin: 02/11/17 05:56 Dose: 5 mg Polyethylene Glycol/Electrolytes (Miralax*) 17 gm PO DAILY PRN PRN Reason: CONSTIPATION Last Admin: 02/10/17 11:04 Dose: 17 gm Rivaroxaban (Xarelto (*)) 20 mg PO DAILY [facility] Last Admin: 02/10/17 10:17 Dose: 20 mg Sertraline HCl (Zoloft*) 100 mg PO DAILY [facility] Last Admin: 02/10/17 10:15 Dose: 100 mg Vital Signs - 8 hr 02/11/17 02/11/17 02/11/17 00:26 03:48 05:56 Temperature 98.3 F Pulse Rate 103 Respiratory 14 16 14 Rate Blood Pressure 133/82 (mmHg) O2 Sat by Pulse 94 Oximetry Oxygen Devices in Use Now: None Appearance: Elderly female sitting up in bed, NAD Eyes: No Scleral Icterus Ears/Nose/Mouth/Throat: Mucous Membranes Moist Respiratory: Symmetrical Chest Expansion and Respiratory Effort, Clear to Auscultation Cardiovascular: NL Sounds; No Murmurs; No JVD, - - irregularly irregular, controlled rate Abdominal: NL Sounds; No Tenderness; No Distention Extremities: No Clubbing, Cyanosis, - - R LE in knee immobilizer Skin: No Rash or Ulcers, No Nodules or Sclerosis Neurological: Alert and Oriented x 3 Result Diagrams: 02/11/17 05:04 02/10/17 05:50 Microbiology and Other Data: Microbiology 02/03/17 18:15 Stool Occult Blood (DWAINE) - Final Stool Assess/Plan/Problems-Billing Ms. 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 fib (not anticoagulated), b/l ankle ORIF, R knee replacement who is basically WC bound was noted to have UTI and increased weakness with falls, directly admitted form Dr. Ren's office. - Patient Problems (1) Generalized weakness Current Visit: Yes Status: Acute Code(s): R53.1 - WEAKNESS SNOMED Code(s) : 99010141 Comment: Weakness and inability to ambulate initially felt to be secondary to ESBL klebsiella and pseudomonas UTI in setting of chronic simmons. She has completed 7 days of cipro. Her inability to walk however was likely related to her subsequently identified R total knee dislocation which has been repaired but again is dislocated. (2) Dislocation of knee, posterior, right, closed Current Visit: Yes Status: Acute Code(s): S83.124A - POSTERIOR DISLOC OF PROXIMAL END OF TIBIA, RIGHT KNEE, INIT SNOMED Code(s): 64949500 Comment: The patient is POD#4 of open reduction and polyethylene exchange of the tibia however yesterday during PT a loud "pop" was heard. Repeat Xray yesterday afternoon showed recurrent posterior dislocation. I notified Dr. Vasquez yesterday who asked for the patient to be placed in a knee immobilizer. She was going to contact Dr. Thomson to discuss further care. (3) Atrial fibrillation Current Visit: Yes Status: Acute Code(s): I48.91 - UNSPECIFIED ATRIAL FIBRILLATION SNOMED Code(s): 02804427 Comment: HR is under good control on diltiazem CD 120mg daily and metoprolol tartrate 12.5mg BID. Change back to lovenox as it is unclear if she will need any new surgical intervention. (4) Hyponatremia Current Visit: Yes Status: Acute Code(s): E87.1 - HYPO-OSMOLALITY AND HYPONATREMIA SNOMED Code(s): 45497034 Comment: Chronic hyponatremia. Appears to be stable. Monitor intermittently. Continue to hold HCTZ. (5) Microcytic anemia Current Visit: Yes Status: Acute Code(s): D50.9 - IRON DEFICIENCY ANEMIA, UNSPECIFIED SNOMED Code(s): 821777239 Comment: H/H stable. She received 1 unit PRBC pre-op without significant change in her H/H. Stool guaiac negative. Likely anemia of chronic disease. Continue to follow intermittently. (6) Decubital ulcer Current Visit: Yes Status: Acute Code(s): L89.90 - PRESSURE ULCER OF UNSPECIFIED SITE, UNSPECIFIED STAGE SNOMED Code(s): 834269469 Comment: Stage II pressure ulcer noted on her coccyx. Cntinue barrier cream and pressure relieving measures. (7) Hypertension Current Visit: Yes Status: Chronic Priority: Medium Code(s): I10 - ESSENTIAL (PRIMARY) HYPERTENSION SNOMED Code(s): 88775405 Comment: BP under good control. Continue cardizem and metoprolol. (8) Multiple sclerosis Current Visit: Yes Status: Chronic Code(s): G35 - MULTIPLE SCLEROSIS SNOMED Code(s): 83570329 Comment: Continue Tecfidera and baclofen. (9) Hypothyroid Current Visit: Yes Status: Chronic Code(s): E03.9 - HYPOTHYROIDISM, UNSPECIFIED SNOMED Code(s): 74135318 Comment: TSH in appropriate range. Continue current dose of synthroid. (10) Neurogenic bladder Current Visit: Yes Status: Chronic Code(s): N31.9 - NEUROMUSCULAR DYSFUNCTION OF BLADDER, UNSPECIFIED SNOMED Code(s): 824942384 Comment: Pt has chronic simmons. Simmons exchanged earlier this hospitalization. (11) DVT prophylaxis Current Visit: Yes Status: Acute Code(s): FLL1723 - SNOMED Code(s): 794630583 Comment: nanciex (12) Full code status Current Visit: Yes Status: Acute Code(s): Z78.9 - OTHER SPECIFIED HEALTH STATUS SNOMED Code(s): 737734253 Status and Disposition: await bed offer for STR
[2017-02-11] MEDS: Aspirin TAB* 325 MG PO SCH (09:06)
[2017-02-11] MEDS: Ascorbic Acid TAB* 500 MG PO SCH (09:06)
[2017-02-11] MEDS: Cyanocobalamin TAB* 500 MCG PO SCH (09:06)
[2017-02-11] MEDS: Diltiazem CD CAP* 120 MG PO SCH (09:06)
[2017-02-11] MEDS: Sertraline* 100 MG TAB PO SCH (09:06)
[2017-02-11] MEDS: PTO:Dimethyl Fumarate(NF) 240 MG CAP PO SCH ×2 (09:06→20:29)
[2017-02-11] MEDS: Ferrous Sulfate TAB* 325 MG PO SCH ×2 (09:07→20:28)
[2017-02-11] MEDS: Metoprolol Tartrate TAB* 25 MG PO SCH ×2 (09:07→20:35)
[2017-02-11] MEDS: Magnesium Oxide TAB* 400 MG PO SCH (09:07)
[2017-02-11] MEDS: Enoxaparin(*) 100 MG/ML SYR SUBCUT SCH ×2 (09:09→20:33)
--- NOTE | 2017-02-11 09:18 | PN ---
Progress Note - Progress Note Date of Service: 02/11/17 SOAP: Subjective: Ms Enriquez is a 71 yo who has undergone a primary TKA with Dr. Nair which became infected post-op and eventually had a revision in [place]. She had been unable to WB for a few months on the right and was admitted for weakness and was found to have a dislocated right TKA. I had done an open relocation with a poly exchange and found the knee was unstable in flexion and valgus. I thought that avoiding that postion would work to allow the knee to heal and be a stable platform for her, but yesterday there was audible clunk to the knee and she again dislocated, confirmed by x-ray. I was notified yesterday evening and came in today to talk with her. She reports the knee hurts and is very similar to how it was prior to surgery. Objective: VSS: afebrile Right knee- would benign, no drainage, no erythema, a little bleeding inferiorly when the dressing was removed. Obvious deformity with the soft tissue folded over the knee. Can easily wiggle her toes. Asked her if I could straighten the knee same as when we first met and she was OK with that. Gentle traction with the knee flexed gave a clunk, correcting the deformity and the leg looked much better. I was able to hold the leg from the ankle to allow for the knee to be re-wrapped after the dressing change and it held nicely. She also felt better with less knee pain. Assessment: Unstable right TKA Plan: Discussed with her that the femoral component needs to be changed so that a poly with a larger post or even a hinged knee can be placed so that the knee does not continue to dislocate. Likely the poly has spun out again, as she located quite easily. The poly post looks like a shark fin, with just a little straightness right at the base in the front. With the poly having 'spun out', it is likely sitting 180 degrees from where it should be. With that slope now facing posteriorly, it allows the tibia to just slide back when trying to flex, so no knee flexion at this time. There are case reports of 8 weeks in a long leg cast working to restore stability, but considering this was likely unstable at the time of surgery, I do not believe 8 weeks of immobilization will make the knee stable. Rather, revising the femoral component so that a constrained knee can be placed should work well. She reports she needs to talk to her sister about a decision for this, and she said she would like me to speak with her sister. I will give them today to talk about this and call her sister tomorrow and discuss surgery. Meanwhile, she may WBAT as tolerated in the immobilizer and should not work on knee flexion.
[2017-02-11] MEDS: Baclofen TAB* 10 MG PO SCH (20:28)
[2017-02-11] MEDS: Gabapentin CAP(*) 300 MG PO SCH (20:28)
[2017-02-12 05:49] LABS: Hematocrit 30 % (35-47); Hemoglobin 9.9 g/dl (12.0-16.0); Mean Corpuscular HGB Conc 33 g/dl (31-36); Mean Corpuscular Hemoglobin 24 pg (27-31); Mean Platelet Volume 7 um3 (7.4-10.4); Platelet Count 385 10^3/ul (150-450); Red Blood Count 4.11 10^6/ul (4.0-5.4); Red Cell Distribution Width 23 % (10.5-15); White Blood Count 7.5 10^3/ul (3.5-10.8)
[2017-02-12 05:50] LABS: Mean Corpuscular Volume 74 fL (80-97)
[2017-02-12 05:59] LABS: EGFR Non-African American 148.3 (>60)
[2017-02-12] MEDS: Levothyroxine TAB* 25 MCG TAB PO SCH (06:12)
[2017-02-12] MEDS: Levothyroxine TAB* 112 MCG TAB PO SCH (06:12)
[2017-02-12] MEDS: Ferrous Sulfate TAB* 325 MG PO SCH ×2 (08:25→20:07)
[2017-02-12] MEDS: Magnesium Oxide TAB* 400 MG PO SCH (08:25)
[2017-02-12] MEDS: Aspirin TAB* 325 MG PO SCH (08:25)
[2017-02-12] MEDS: Metoprolol Tartrate TAB* 25 MG PO SCH ×2 (08:25→20:05)
[2017-02-12] MEDS: Diltiazem CD CAP* 120 MG PO SCH (08:25)
[2017-02-12] MEDS: Sertraline* 100 MG TAB PO SCH (08:26)
[2017-02-12] MEDS: Ascorbic Acid TAB* 500 MG PO SCH (08:26)
[2017-02-12] MEDS: Cyanocobalamin TAB* 500 MCG PO SCH (08:26)
[2017-02-12] MEDS: Enoxaparin(*) 100 MG/ML SYR SUBCUT SCH ×2 (08:27→20:07)
[2017-02-12] MEDS: PTO:Dimethyl Fumarate(NF) 240 MG CAP PO SCH ×2 (09:18→20:07)
--- NOTE | 2017-02-12 11:56 | PN ---
Subjective Date of Service: 02/12/17 Interval History: Pt is feeling ok. No major issues today. She has not made a decision on proceeding with surgery or not. No CP or SOB. Family History: Unchanged from Admission Social History: Unchanged from Admission Past Medical History: Unchanged from Admission Objective Active Medications: Acetaminophen (Tylenol Tab*) 650 mg PO Q4H PRN PRN Reason: FEVER/PAIN Last Admin: 02/03/17 19:26 Dose: 650 mg Ascorbic Acid (Vitamin C Tab*) 500 mg PO DAILY [facility] Last Admin: 02/12/17 08:26 Dose: 500 mg Aspirin (Aspirin Tab*) 325 mg PO DAILY [facility] Last Admin: 02/12/17 08:25 Dose: 325 mg Baclofen (Lioresal Tab*) 10 mg PO BEDTIME [facility] Last Admin: 02/11/17 20:28 Dose: 10 mg Cyanocobalamin (Vitamin B12 Tab*) 500 mcg PO DAILY [facility] Last Admin: 02/12/17 08:26 Dose: 500 mcg Diltiazem HCl (Cardizem Cd Cap*) 120 mg PO DAILY [facility] Last Admin: 02/12/17 08:25 Dose: 120 mg Dimethyl Fumarate (Tecfidera(Nf)) 240 mg PO BID [facility] Last Admin: 02/12/17 09:18 Dose: 240 mg Diphenhydramine HCl (Benadryl Po*) 25 mg PO Q6H PRN PRN Reason: itching Docusate Sodium (Colace Cap*) 100 mg PO BID PRN PRN Reason: CONSTIPATION Last Admin: 02/09/17 22:49 Dose: 100 mg Enoxaparin Sodium (Lovenox(*)) 90 mg SUBCUT Q12H [facility] Last Admin: 02/12/17 08:27 Dose: 90 mg Ferrous Sulfate (Ferrous Sulfate Tab*) 325 mg PO BID [facility] Last Admin: 02/12/17 08:25 Dose: 325 mg Gabapentin (Neurontin Cap(*)) 300 mg PO BEDTIME [facility] Last Admin: 02/11/17 20:28 Dose: 300 mg Levothyroxine Sodium (Synthroid Tab*) 112 mcg PO DAILY@0600 [facility] Last Admin: 02/12/17 06:12 Dose: 112 mcg Levothyroxine Sodium (Synthroid Tab*) 25 mcg PO DAILY@0600 [facility] Last Admin: 02/12/17 06:12 Dose: 25 mcg Magnesium Oxide (Magox 400 Tab*) 800 mg PO DAILY [facility] Last Admin: 02/12/17 08:25 Dose: 800 mg Metoprolol Tartrate (Lopressor Tab*) 12.5 mg PO Q12HR [facility] Last Admin: 02/12/17 08:25 Dose: 12.5 mg Ondansetron HCl (Zofran Inj*) 4 mg IV Q6H PRN PRN Reason: nausea Oxycodone HCl (Roxycodone Tab*) 5 mg PO Q4H PRN PRN Reason: PAIN Last Admin: 02/11/17 20:30 Dose: 5 mg Polyethylene Glycol/Electrolytes (Miralax*) 17 gm PO DAILY PRN PRN Reason: CONSTIPATION Last Admin: 02/10/17 11:04 Dose: 17 gm Sertraline HCl (Zoloft*) 100 mg PO DAILY [facility] Last Admin: 02/12/17 08:26 Dose: 100 mg Vital Signs - 8 hr 02/12/17 02/12/17 04:06 08:02 Temperature 99.4 F 99.1 F Pulse Rate 68 101 Respiratory 16 17 Rate Blood Pressure 145/76 133/79 (mmHg) O2 Sat by Pulse 95 96 Oximetry Oxygen Devices in Use Now: None Appearance: Elderly female sitting up in a chair, NAD Eyes: No Scleral Icterus Ears/Nose/Mouth/Throat: Mucous Membranes Moist Respiratory: Symmetrical Chest Expansion and Respiratory Effort, Clear to Auscultation Cardiovascular: NL Sounds; No Murmurs; No JVD, - - irregularly irregular Abdominal: NL Sounds; No Tenderness; No Distention Extremities: No Clubbing, Cyanosis, - - R LE in knee immobilizer Skin: No Nodules or Sclerosis Neurological: Alert and Oriented x 3 Result Diagrams: 02/12/17 05:38 02/12/17 05:35 Microbiology and Other Data: Microbiology 02/03/17 18:15 Stool Occult Blood (DWAINE) - Final Stool Assess/Plan/Problems-Billing Ms. 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 fib (not anticoagulated), b/l ankle ORIF, R knee replacement who is basically WC bound was noted to have UTI and increased weakness with falls, directly admitted form Dr. Ren's office. - Patient Problems (1) Generalized weakness Current Visit: Yes Status: Acute Code(s): R53.1 - WEAKNESS SNOMED Code(s) : 63210635 Comment: Weakness and inability to ambulate initially felt to be secondary to ESBL klebsiella and pseudomonas UTI in setting of chronic simmons. She has completed 7 days of cipro. Her inability to walk however was likely related to her subsequently identified R total knee dislocation which has been repaired but again is dislocated. (2) Dislocation of knee, posterior, right, closed Current Visit: Yes Status: Acute Code(s): S83.124A - POSTERIOR DISLOC OF PROXIMAL END OF TIBIA, RIGHT KNEE, INIT SNOMED Code(s): 46356771 Comment: The patient is POD#5 of open reduction and polyethylene exchange of the tibia however the knee dislocated again but has been reduced. The patient is trying to decide if she should undergo revision of the femoral component to prevent future dislocations. Dr. Thomson is following up today with the patient and speaking with the patient's sister. Keep knee immobilizer in place for now. (3) Atrial fibrillation Current Visit: Yes Status: Acute Code(s): I48.91 - UNSPECIFIED ATRIAL FIBRILLATION SNOMED Code(s): 01581725 Comment: HR is under good control on diltiazem CD 120mg daily and metoprolol tartrate 12.5mg BID. Continue lovenox until decision is made about surgery. (4) Hyponatremia Current Visit: Yes Status: Acute Code(s): E87.1 - HYPO-OSMOLALITY AND HYPONATREMIA SNOMED Code(s): 14422144 Comment: Chronic hyponatremia. Appears to be stable. Monitor intermittently. Continue to hold HCTZ. (5) Microcytic anemia Current Visit: Yes Status: Acute Code(s): D50.9 - IRON DEFICIENCY ANEMIA, UNSPECIFIED SNOMED Code(s): 737766900 Comment: H/H stable. Continue to monitor intermittently. (6) Decubital ulcer Current Visit: Yes Status: Acute Code(s): L89.90 - PRESSURE ULCER OF UNSPECIFIED SITE, UNSPECIFIED STAGE SNOMED Code(s): 233046359 Comment: Stage II pressure ulcer noted on her coccyx. Continue barrier cream and pressure relieving measures. (7) Hypertension Current Visit: Yes Status: Chronic Priority: Medium Code(s): I10 - ESSENTIAL (PRIMARY) HYPERTENSION SNOMED Code(s): 92184674 Comment: BP under good control. Continue cardizem and metoprolol. (8) Multiple sclerosis Current Visit: Yes Status: Chronic Code(s): G35 - MULTIPLE SCLEROSIS SNOMED Code(s): 93441777 Comment: Continue Tecfidera and baclofen. (9) Hypothyroid Current Visit: Yes Status: Chronic Code(s): E03.9 - HYPOTHYROIDISM, UNSPECIFIED SNOMED Code(s): 69299313 Comment: TSH in appropriate range. Continue current dose of synthroid. (10) Neurogenic bladder Current Visit: Yes Status: Chronic Code(s): N31.9 - NEUROMUSCULAR DYSFUNCTION OF BLADDER, UNSPECIFIED SNOMED Code(s): 702065323 Comment: Pt has chronic simmons. Simmons exchanged earlier this hospitalization. (11) DVT prophylaxis Current Visit: Yes Status: Acute Code(s): KNW5597 - SNOMED Code(s): 751232908 Comment: lovenox (12) Full code status Current Visit: Yes Status: Acute Code(s): Z78.9 - OTHER SPECIFIED HEALTH STATUS SNOMED Code(s): 964957033 Status and Disposition: await bed offer for STR
--- NOTE | 2017-02-12 12:28 | SURGPN ---
Subjective - Introduction -: [f ADM pt sex out], current age [f ADM pt cur age] years Admitted on: [f ADM pt adm dt] S: 71 yo female, with a long history of right knee problems. Underwent a poly exchange for a presumed post failure on 02/07, but was found to have a spin out of her poly. Poly was worn, but had not worn out. The knee was unstable in flexion, valgus and IR and I had believed avoiding that position would work so that the poly would not spin out again. Unfortunately on POD #3 she did dislocate again and the next morning I was able to relocate the knee on the floor, so I believe she has spun out again. I spoke with her yesterday about revising the knee, as it will continue to do this (and it has been doing this for some time, as she reports it was never right) and she had wanted yesterday to think about it and speak with her sister, plus have me speak with her sister. I have spoke with both of them and they are very much in favor of having something done to truly fix the knee. I discussed with them that conversion to a constrained knee or a hinged knee should work well to give her a stable knee. Unfortunately, she would be at increased risk of component loosening as time time goes by, but the parts are not working for her as they are, so getting parts in the knee that do work for her should make a great improvement in her quality of life and function. Risks of surgery are in line with the revision risks, such as CV events, infection, DVT/PE and stiffness. With a constrained knee/hinge, I can essentially guarantee she will not dislocate again, but will have a higher risk of component loosening as time goes by. Likely it will take 2 to 4 days to get the parts in (took 3 last time), as I will need femoral parts for revision to even a distal femoral replacemnt so that a hinge can be placed. Likely surgery will be early next week- I will try to keep everyone updated as parts come in. - Medications -: Active Medications Generic Name Dose Route Start Last Admin Trade Name Freq PRN Reason Stop Dose Admin Acetaminophen 650 mg 02/03/17 14:30 02/03/17 19:26 Tylenol Tab* PO 650 mg Q4H PRN Administration FEVER/PAIN Ascorbic Acid 500 mg 02/04/17 09:00 02/12/17 08:26 Vitamin C Tab* PO 500 mg DAILY ROSAURA Administration Aspirin 325 mg 02/04/17 09:00 02/12/17 08:25 Aspirin Tab* PO 325 mg DAILY ROSAURA Administration Baclofen 10 mg 02/03/17 21:00 02/11/17 20:28 Lioresal Tab* PO 10 mg BEDTIME ROSAURA Administration Cyanocobalamin 500 mcg 02/04/17 09:00 02/12/17 08:26 Vitamin B12 Tab* PO 500 mcg DAILY ROSAURA Administration Diltiazem HCl 120 mg 02/05/17 09:00 02/12/17 08:25 Cardizem Cd Cap* PO 120 mg DAILY ROSAURA Administration Dimethyl Fumarate 240 mg 02/04/17 21:00 02/12/17 09:18 Tecfidera(Nf) PO 240 mg BID ROSAURA Administration Diphenhydramine HCl 25 mg 02/07/17 09:09 Benadryl Po* PO Q6H PRN itching Docusate Sodium 100 mg 02/05/17 07:38 02/09/17 22:49 Colace Cap* PO 100 mg BID PRN Administration CONSTIPATION Enoxaparin Sodium 90 mg 02/11/17 09:00 02/12/17 08:27 Lovenox(*) SUBCUT 90 mg Q12H ROSAURA Administration Ferrous Sulfate 325 mg 02/05/17 09:00 02/12/17 08:25 Ferrous Sulfate Tab* PO 325 mg BID ROSAURA Administration Gabapentin 300 mg 02/03/17 21:00 02/11/17 20:28 Neurontin Cap(*) PO 300 mg BEDTIME ROSAURA Administration Levothyroxine Sodium 112 mcg 02/12/17 06:00 02/12/17 06:12 Synthroid Tab* PO 112 mcg DAILY@0600 ROSAURA Administration Levothyroxine Sodium 25 mcg 02/12/17 06:00 02/12/17 06:12 Synthroid Tab* PO 25 mcg DAILY@0600 ROSAURA Administration Magnesium Oxide 800 mg 02/05/17 10:00 02/12/17 08:25 Magox 400 Tab* PO 800 mg DAILY ROSAURA Administration Metoprolol Tartrate 12.5 mg 02/06/17 09:00 02/12/17 08:25 Lopressor Tab* PO 12.5 mg Q12HR ROSAURA Administration Ondansetron HCl 4 mg 02/07/17 09:09 Zofran Inj* IV Q6H PRN nausea Oxycodone HCl 5 mg 02/10/17 23:57 02/11/17 20:30 Roxycodone Tab* PO 5 mg Q4H PRN Administration PAIN Polyethylene Glycol/Electrolytes 17 gm 02/03/17 15:32 02/10/17 11:04 Miralax* PO 17 gm DAILY PRN Administration CONSTIPATION Sertraline HCl 100 mg 02/04/17 09:00 02/12/17 08:26 Zoloft* PO 100 mg DAILY ROSAURA Administration Objective - Intake and Output -: Intake & Output 02/10/17 02/11/17 02/12/17 02/13/17 06:59 06:59 06:59 06:59 Intake Total 1065 2295 1230 320 Output Total 1025 1300 1595 Balance 40 995 -365 320 Intake: IV Fluids 980 NS (0.9%) 980 Oral 1065 1315 1230 320 Output: Garcia 1025 1300 1595 Other: # Bowel Movements 0 2130 Estimated Stool Amount Small ADLs: Meal Record Start: 02/03/17 14: 42 Freq: DAILY@0900,1400,1800 Status: Inactive Protocol: Created 02/03/17 14:42 System (Rec: 02/03/17 14:42 System MED-M01) Document 02/03/17 18:00 [id number] (Rec: 02/03/17 18:28 [id number] MED-C11) Document 02/04/17 09:00 [id number] (Rec: 02/04/17 09:57 [id number] MED-C09) Document 02/04/17 14:00 [id number] (Rec: 02/04/17 14:06 [id number] MED-C09) Document 02/04/17 18:00 NMC0486 (Rec: 02/04/17 18:56 [id number] MED-C09) Document 02/05/17 09:00 WHM0159 (Rec: 02/05/17 09:35 [id number] MED-C11) Document 02/05/17 13:22 UEC0312 (Rec: 02/05/17 13:22 NFV7655 MED-C11) Document 02/05/17 18:00 MQC8660 (Rec: 02/05/17 18:52 [id number] MED-C09) Document 02/06/17 09:00 [id number] (Rec: 02/06/17 09:35 [id number] MED-C11) Document 02/06/17 13:07 UHZ1033 (Rec: 02/06/17 13:37 PZD2296 MED-C11) Document 02/06/17 18:00 [id number] (Rec: 02/06/17 18:09 [id number] MED-C09) Document 02/07/17 07:02 VCC1137 (Rec: 02/07/17 07:03 [id number] MED-C09) ADLs: Meal Record Start: 02/07/17 11: 13 Freq: Status: Active Protocol: Created 02/07/17 11:13 [id number] (Rec: 02/07/17 11:13 [id number] SSU-M07) Document 02/07/17 13:58 MTD9510 (Rec: 02/07/17 13:59 NEQ2754 SSU-C05) Document 02/07/17 18:06 TYU3489 (Rec: 02/07/17 18:06 TRX5131 SSU-C03) Document 02/08/17 08:00 BUM6229 (Rec: 02/08/17 13:[id number] [facility] [place]-RDC2) Document 02/08/17 18:04 XLY9162 (Rec: 02/08/17 18:04 XYX3167 SSU-C05) Document 02/09/17 13:42 IUZ2103 (Rec: 02/09/17 13:[id number] [facility] [place]-RDC2) Document 02/10/17 10:15 XQK3790 (Rec: 02/10/17 10:15 QJD3958 SSU-C19) Document 02/10/17 13:26 KHU7654 (Rec: 02/10/17 13:26 [id number] SSU-C11) Document 02/10/17 18:12 SYM4075 (Rec: 02/10/17 18:12 SLO5047 SSU-C08) Document 02/11/17 13:33 CRE0368 (Rec: 02/11/17 13:33 [id number] SSU-M03) Document 02/11/17 17:57 HSN9915 (Rec: 02/11/17 17:57 DKO2001 SSU-M03) Document 02/12/17 10:00 XOT2394 (Rec: 02/12/17 11:49 TZH0361 SSU-C03) Intake and Output Start: 02/03/17 14: 42 Freq: DAILY@0600,1400,2200 Status: Cancelled Protocol: Created 02/03/17 14:42 System (Rec: 02/03/17 14:42 System MED-M01) Document 02/03/17 20:16 KPE2509 (Rec: 02/03/17 20:16 LJE7613 MED-C09) Document 02/03/17 22:00 WLX1904 (Rec: 02/03/17 22:15 NXZ6534 MED-C09) Document 02/04/17 14:00 EAP2315 (Rec: 02/04/17 15:07 NVN4110 MED-C09) Document 02/04/17 21:49 NCC5637 (Rec: 02/04/17 21:50 GHR6675 MED-C09) Document 02/05/17 06:00 KKT5585 (Rec: 02/05/17 06:21 DKH8751 MEDL-C02) Document 02/05/17 13:49 NDT0391 (Rec: 02/05/17 13:57 VOI7932 MED-C11) Document 02/05/17 21:50 EZE3879 (Rec: 02/05/17 21:54 XSW1140 MED-C09) Document 02/06/17 06:00 VPC3990 (Rec: 02/06/17 06:48 BRY3072 MEDL-C02) Document 02/06/17 13:07 YPP2738 (Rec: 02/06/17 13:37 NUP1900 MED-C11) Document 02/06/17 21:42 ZRH1840 (Rec: 02/06/17 21:45 WUM8373 MED-C09) Document 02/07/17 04:56 QIX1167 (Rec: 02/07/17 04:56 FRA2542 MEDL-C02) Intake and Output Start: 02/07/17 09: 09 Freq: 06,14,2200 Status: Active Protocol: Created 02/07/17 09:26 OQS9173 (Rec: 02/07/17 09:26 BKG FELIPE-BG10) Document 02/07/17 13:58 BZP4053 (Rec: 02/07/17 13:59 GQL8926 SSU-C05) Document 02/07/17 22:00 WMT1635 (Rec: 02/07/17 22:28 ZIJ9770 SSU-C03) Document 02/08/17 05:39 MSS9234 (Rec: 02/08/17 05:39 VIP5013 SSU-M07) Document 02/08/17 13:46 FKT1262 (Rec: 02/08/17 13:47 YDF2661 CMC-RDC2) Document 02/08/17 22:00 XMI4892 (Rec: 02/08/17 22:09 XIB2301 SSU-C11) Document 02/09/17 05:47 PMO7349 (Rec: 02/09/17 05:48 ABY9522 SSU-M15) Document 02/09/17 13:41 EXZ3897 (Rec: 02/09/17 13:41 HDE0113 CMC-RDC2) Document 02/09/17 22:00 AGI7260 (Rec: 02/09/17 22:07 ZYG8870 SSU-C19) Document 02/10/17 05:26 MMA8344 (Rec: 02/10/17 05:26 JDT9124 SSU-C08) Document 02/10/17 13:44 YYN5506 (Rec: 02/10/17 13:44 KLI7868 SSU-C03) Document 02/10/17 22:00 TAI6288 (Rec: 02/10/17 22:11 RHG2769 SSU-C08) Document 02/11/17 03:53 WSY7879 (Rec: 02/11/17 03:54 ODU7662 SSU-C08) Document 02/11/17 06:00 QNF2152 (Rec: 02/11/17 06:07 WIE0995 SSU-C08) Document 02/11/17 14:45 HZC2056 (Rec: 02/11/17 14:45 FTN1830 SSU-M03) Document 02/11/17 21:41 EYM5140 (Rec: 02/11/17 21:42 YGN5619 SSU-C19) Document 02/12/17 05:48 IQF7304 (Rec: 02/12/17 05:49 SPM3589 SSU-C08) Document 02/12/17 06:16 NPO4887 (Rec: 02/12/17 06:16 MVV1310 SSU-C08) Intake and Output Start: 02/07/17 11: 13 Freq: Status: Active Protocol: Created 02/07/17 11:13 HQI1098 (Rec: 02/07/17 11:13 [id number] SSU-M07)
--- NOTE | 2017-02-12 14:19 | PN ---
Progress Note - Progress Note Date of Service: 02/12/17 SOAP: Subjective: 71 y/o female with h/o dislocated L TKA with poly exchange 02/07 with repeated dislocation. patient discussed future surgery with Dr. Thomson this AM, no questions/ concerns currently. Pain controlled, knee in immobilizer. VSS afebrile overnight. Objective: MSK- Well appearing, nAD, resting in chair comfortably MSK- dressing taken down, incision intact, small area near middle with bloody drainage, no erythema, purulent fluid noted. redressed, + DF/PF b/l, neg homans b/l, sitlt b/l, + DF/PF. Vital Signs Temp 99.1 F 02/12/17 08:02 Pulse 101 02/12/17 08:02 Resp 17 02/12/17 08:02 BP 133/79 02/12/17 08:02 Pulse Ox 96 02/12/17 08:02 Intake & Output 02/11/17 02/12/17 02/12/17 18:59 06:59 18:59 Intake Total 480 750 320 Output Total 575 1020 Balance -95 -270 320 Intake: Oral 480 750 320 Output: Garcia 575 1020 Other: # Bowel Movements 1 2130 Estimated Stool Amount Small Assessment: 71 y/o female with h/o dislocated L TKA with poly exchange 02/07 with repeated dislocation. Plan: - UTI 02/03, treated. - Awaiting TKA parts for revision - Continue PT - wound tissue cultures negative currently - a fib/ dvt prophylaxis- lovenox Active Medications Generic Name Dose Route Start Last Admin Trade Name [place] PRN Reason Stop Dose Admin Acetaminophen 650 mg 02/03/17 14:30 02/03/17 19:26 Tylenol Tab* PO 650 mg Q4H PRN Administration FEVER/PAIN Ascorbic Acid 500 mg 02/04/17 09:00 02/12/17 08:26 Vitamin C Tab* PO 500 mg DAILY ROSAURA Administration Aspirin 325 mg 02/04/17 09:00 02/12/17 08:25 Aspirin Tab* PO 325 mg DAILY ROSAURA Administration Baclofen 10 mg 02/03/17 21:00 02/11/17 20:28 Lioresal Tab* PO 10 mg BEDTIME ROSAURA Administration Cyanocobalamin 500 mcg 02/04/17 09:00 02/12/17 08:26 Vitamin B12 Tab* PO 500 mcg DAILY ROSAURA Administration Diltiazem HCl 120 mg 02/05/17 09:00 02/12/17 08:25 Cardizem Cd Cap* PO 120 mg DAILY ROSAURA Administration Dimethyl Fumarate 240 mg 02/04/17 21:00 02/12/17 09:18 Tecfidera(Nf) PO 240 mg BID ROSAURA Administration Diphenhydramine HCl 25 mg 02/07/17 09:09 Benadryl Po* PO Q6H PRN itching Docusate Sodium 100 mg 02/05/17 07:38 02/09/17 22:49 Colace Cap* PO 100 mg BID PRN Administration CONSTIPATION Enoxaparin Sodium 90 mg 02/11/17 09:00 02/12/17 08:27 Lovenox(*) SUBCUT 90 mg Q12H ROSAURA Administration Ferrous Sulfate 325 mg 02/05/17 09:00 02/12/17 08:25 Ferrous Sulfate Tab* PO 325 mg BID ROSAURA Administration Gabapentin 300 mg 02/03/17 21:00 02/11/17 20:28 Neurontin Cap(*) PO 300 mg BEDTIME ROSAURA Administration Levothyroxine Sodium 112 mcg 02/12/17 06:00 02/12/17 06:12 Synthroid Tab* PO 112 mcg DAILY@0600 ROSAURA Administration Levothyroxine Sodium 25 mcg 02/12/17 06:00 02/12/17 06:12 Synthroid Tab* PO 25 mcg DAILY@0600 ROSAURA Administration Magnesium Oxide 800 mg 02/05/17 10:00 02/12/17 08:25 Magox 400 Tab* PO 800 mg DAILY ROSAURA Administration Metoprolol Tartrate 12.5 mg 02/06/17 09:00 02/12/17 08:25 Lopressor Tab* PO 12.5 mg Q12HR ROSAURA Administration Ondansetron HCl 4 mg 02/07/17 09:09 Zofran Inj* IV Q6H PRN nausea Oxycodone HCl 5 mg 02/10/17 23:57 02/11/17 20:30 Roxycodone Tab* PO 5 mg Q4H PRN Administration PAIN Polyethylene Glycol/Electrolytes 17 gm 02/03/17 15:32 02/10/17 11:04 Miralax* PO 17 gm DAILY PRN Administration CONSTIPATION Sertraline HCl 100 mg 02/04/17 09:00 02/12/17 08:26 Zoloft* PO 100 mg DAILY ROSAURA Administration
[2017-02-12] MEDS: Baclofen TAB* 10 MG PO SCH (20:06)
[2017-02-12] MEDS: Gabapentin CAP(*) 300 MG PO SCH (20:06)
[2017-02-13] MEDS: Levothyroxine TAB* 112 MCG TAB PO SCH (05:48)
[2017-02-13] MEDS: Levothyroxine TAB* 25 MCG TAB PO SCH (05:48)
[2017-02-13] MEDS: Cyanocobalamin TAB* 500 MCG PO SCH (08:28)
[2017-02-13] MEDS: Aspirin TAB* 325 MG PO SCH (08:28)
[2017-02-13] MEDS: Sertraline* 100 MG TAB PO SCH (08:28)
[2017-02-13] MEDS: Magnesium Oxide TAB* 400 MG PO SCH (08:29)
[2017-02-13] MEDS: Metoprolol Tartrate TAB* 25 MG PO SCH ×2 (08:29→20:47)
[2017-02-13] MEDS: Diltiazem CD CAP* 120 MG PO SCH (08:29)
[2017-02-13] MEDS: Ferrous Sulfate TAB* 325 MG PO SCH ×2 (08:29→20:46)
[2017-02-13] MEDS: Ascorbic Acid TAB* 500 MG PO SCH (08:30)
[2017-02-13] MEDS: Enoxaparin(*) 100 MG/ML SYR SUBCUT SCH ×2 (08:30→20:49)
[2017-02-13] MEDS: PTO:Dimethyl Fumarate(NF) 240 MG CAP PO SCH ×2 (08:32→20:44)
--- NOTE | 2017-02-13 08:36 | PN ---
Progress Note - Progress Note Date of Service: 02/13/17 SOAP: Subjective: resting comfortably with no complaints Objective: Vital Signs Temp Pulse Resp BP Pulse Ox 98.5 F 112 18 145/84 97 02/13/17 07:38 02/13/17 07:38 02/13/17 07:57 02/13/17 07:38 02/13/17 07:38 Laboratory Last Values WBC 7.5 10^3/ul (3.5-10.8) 02/12/17 05:38 RBC 4.11 10^6/ul (4.0-5.4) 02/12/17 05:38 Hgb 9.9 g/dl (12.0-16.0) L 02/12/17 05:38 Hct 30 % (35-47) L 02/12/17 05:38 MCV 74 fL (80-97) L 02/12/17 05:38 MCH 24 pg (27-31) L 02/12/17 05:38 MCHC 33 g/dl (31-36) 02/12/17 05:38 RDW 23 % (10.5-15) H 02/12/17 05:38 Plt Count 385 10^3/ul (150-450) 02/12/17 05:38 MPV 7 um3 (7.4-10.4) L 02/12/17 05:38 Neut % (Auto) 66.3 % (38-83) 02/10/17 05:50 Lymph % (Auto) 18.8 % (25-47) L 02/10/17 05:50 Cameron % (Auto) 11.5 % (1-9) H 02/10/17 05:50 Eos % (Auto) 1.7 % (0-6) 02/10/17 05:50 Baso % (Auto) 1.7 % (0-2) 02/10/17 05:50 Absolute Neuts (auto) 6.1 10^3/ul (1.5-7.7) 02/10/17 05:50 Absolute Lymphs (auto) 1.7 10^3/ul (1.0-4.8) 02/10/17 05:50 Absolute Monos (auto) 1.1 10^3/ul (0-0.8) H 02/10/17 05:50 Absolute Eos (auto) 0.2 10^3/ul (0-0.6) 02/10/17 05:50 Absolute Basos (auto) 0.2 10^3/ul (0-0.2) 02/10/17 05:50 Absolute Nucleated RBC 0 10^3/ul 02/10/17 05:50 Nucleated RBC % 0 02/10/17 05:50 INR (Anticoag Therapy) 0.97 (0.77-1.02) 02/07/17 12:21 APTT 38.9 seconds (26.0-36.3) H 02/07/17 12:21 Sodium 132 mmol/L (133-145) L 02/12/17 05:35 Potassium 3.9 mmol/L (3.5-5.0) 02/12/17 05:35 Chloride 99 mmol/L (101-111) L 02/12/17 05:35 Carbon Dioxide 25 mmol/L (22-32) 02/12/17 05:35 Anion Gap 8 mmol/L (2-11) 02/12/17 05:35 BUN 10 mg/dL (6-24) 02/12/17 05:35 Creatinine 0.42 mg/dL (0.51-0.95) L 02/12/17 05:35 Est GFR ( Amer) 190.7 (>60) 02/12/17 05:35 Est GFR (Non-Af Amer) 148.3 (>60) 02/12/17 05:35 BUN/Creatinine Ratio 23.8 (8-20) H 02/12/17 05:35 Glucose 102 mg/dL (70-100) H 02/12/17 05:35 Calcium 8.8 mg/dL (8.6-10.3) 02/12/17 05:35 Magnesium 2.0 mg/dL (1.9-2.7) 02/07/17 05:11 Iron < 15 ug/dL (50-212) L 02/05/17 06:25 TIBC 384 mcg/dL (250-450) 02/05/17 06:25 % Saturation 4 % (15-55) L 02/05/17 06:25 Unsat Iron Binding 369.48939 ug/dL 02/05/17 06:25 Ferritin 121.2 ng/mL (11-307) 02/10/17 05:50 Total Bilirubin 0.60 mg/dL (0.2-1.0) 02/03/17 15:51 AST 27 U/L (13-39) 02/03/17 15:51 ALT 14 U/L (7-52) 02/03/17 15:51 Alkaline Phosphatase 162 U/L (34-104) H 02/03/17 15:51 Troponin I 0.01 ng/mL (<0.04) 02/03/17 15:51 Total Protein 7.1 g/dL (6.4-8.9) 02/03/17 15:51 Albumin 3.8 g/dL (3.2-5.2) 02/03/17 15:51 Globulin 3.3 g/dL (2-4) 02/03/17 15:51 Albumin/Globulin Ratio 1.2 (1-3) 02/03/17 15:51 Urine Color Yellow 02/03/17 15:30 Urine Appearance Cloudy 02/03/17 15:30 Urine pH 5.0 (5-9) 02/03/17 15:30 Ur Specific [place] 1.011 (1.010-1.030) 02/03/17 15:30 Urine Protein Negative (Negative) 02/03/17 15:30 Urine Ketones 1+ (Negative) H 02/03/17 15:30 Urine Blood Negative (Negative) 02/03/17 15:30 Urine Nitrate Positive (Negative) H 02/03/17 15:30 Urine Bilirubin Negative (Negative) 02/03/17 15:30 Urine Urobilinogen Negative (Negative) 02/03/17 15:30 Ur Leukocyte Esterase 2+ (Negative) H 02/03/17 15:30 Urine WBC (Auto) 2+(11-20/hpf) (Absent) H 02/03/17 15:30 Urine RBC (Auto) Trace(0-2/hpf) (Absent) 02/03/17 15:30 Ur Squamous Epith Cells Present (Absent) H 02/03/17 15:30 Urine Bacteria 1+ (Absent) H 02/03/17 15:30 Urine Glucose Negative (Negative) 02/03/17 15:30 Urine Ascorbic Acid * (Negative) H 02/03/17 15:30 Blood Type B Positive 02/05/17 06:22 Antibody Screen Positive 02/05/17 06:22 Antibody Identification Anti-K 02/05/17 06:22 Direct Antiglob Test Negative 02/05/17 06:22 Crossmatch See Detail 02/05/17 06:22 PE: NVI Assessment: s/p poly exchange left TKA 02/07 Plan: 1) continue DVT prophylaxis 2) WBAT with immobilizer; continue PT 3) Dr. Thomson planning revision surgery next week once all hardware needed arrives.
--- NOTE | 2017-02-13 14:37 | PN ---
Subjective Date of Service: 02/13/17 Interval History: Pt is feeling well. She denies any pain at this time. She has opted to go for surgery next week. No SOB or CP. She states she had a BM today. Family History: Unchanged from Admission Social History: Unchanged from Admission Past Medical History: Unchanged from Admission Objective Active Medications: Acetaminophen (Tylenol Tab*) 650 mg PO Q4H PRN PRN Reason: FEVER/PAIN Last Admin: 02/03/17 19:26 Dose: 650 mg Ascorbic Acid (Vitamin C Tab*) 500 mg PO DAILY [facility] Last Admin: 02/13/17 08:30 Dose: 500 mg Aspirin (Aspirin Tab*) 325 mg PO DAILY [facility] Last Admin: 02/13/17 08:28 Dose: 325 mg Baclofen (Lioresal Tab*) 10 mg PO BEDTIME [facility] Last Admin: 02/12/17 20:06 Dose: 10 mg Cyanocobalamin (Vitamin B12 Tab*) 500 mcg PO DAILY [facility] Last Admin: 02/13/17 08:28 Dose: 500 mcg Diltiazem HCl (Cardizem Cd Cap*) 120 mg PO DAILY [facility] Last Admin: 02/13/17 08:29 Dose: 120 mg Dimethyl Fumarate (Tecfidera(Nf)) 240 mg PO BID [facility] Last Admin: 02/13/17 08:32 Dose: 240 mg Diphenhydramine HCl (Benadryl Po*) 25 mg PO Q6H PRN PRN Reason: itching Docusate Sodium (Colace Cap*) 100 mg PO BID PRN PRN Reason: CONSTIPATION Last Admin: 02/09/17 22:49 Dose: 100 mg Enoxaparin Sodium (Lovenox(*)) 90 mg SUBCUT Q12H [facility] Last Admin: 02/13/17 08:30 Dose: 90 mg Ferrous Sulfate (Ferrous Sulfate Tab*) 325 mg PO BID [facility] Last Admin: 02/13/17 08:29 Dose: 325 mg Gabapentin (Neurontin Cap(*)) 300 mg PO BEDTIME [facility] Last Admin: 02/12/17 20:06 Dose: 300 mg Levothyroxine Sodium (Synthroid Tab*) 112 mcg PO DAILY@0600 [facility] Last Admin: 02/13/17 05:48 Dose: 112 mcg Levothyroxine Sodium (Synthroid Tab*) 25 mcg PO DAILY@0600 [facility] Last Admin: 02/13/17 05:48 Dose: 25 mcg Magnesium Oxide (Magox 400 Tab*) 800 mg PO DAILY [facility] Last Admin: 02/13/17 08:29 Dose: 800 mg Metoprolol Tartrate (Lopressor Tab*) 12.5 mg PO Q12HR [facility] Last Admin: 02/13/17 08:29 Dose: 12.5 mg Ondansetron HCl (Zofran Inj*) 4 mg IV Q6H PRN PRN Reason: nausea Oxycodone HCl (Roxycodone Tab*) 5 mg PO Q4H PRN PRN Reason: PAIN Last Admin: 02/11/17 20:30 Dose: 5 mg Polyethylene Glycol/Electrolytes (Miralax*) 17 gm PO DAILY PRN PRN Reason: CONSTIPATION Last Admin: 02/10/17 11:04 Dose: 17 gm Sertraline HCl (Zoloft*) 100 mg PO DAILY [facility] Last Admin: 02/13/17 08:28 Dose: 100 mg Vital Signs - 8 hr 02/13/17 02/13/17 07:38 07:57 Temperature 98.5 F Pulse Rate 112 Respiratory 15 18 Rate Blood Pressure 145/84 (mmHg) O2 Sat by Pulse 97 Oximetry Oxygen Devices in Use Now: None Appearance: Elderly female sitting up in bed, NAD Eyes: No Scleral Icterus Ears/Nose/Mouth/Throat: Mucous Membranes Moist Respiratory: Symmetrical Chest Expansion and Respiratory Effort, Clear to Auscultation Cardiovascular: NL Sounds; No Murmurs; No JVD, - - irregularly irregular, controlled rate Abdominal: NL Sounds; No Tenderness; No Distention Extremities: No Clubbing, Cyanosis Skin: No Rash or Ulcers, No Nodules or Sclerosis Neurological: Alert and Oriented x 3 Result Diagrams: 02/12/17 05:38 02/12/17 05:35 Microbiology and Other Data: Microbiology 02/03/17 18:15 Stool Occult Blood (DWAINE) - Final Stool Assess/Plan/Problems-Billing Ms. 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 fib (not anticoagulated), b/l ankle ORIF, R knee replacement who is basically WC bound was noted to have UTI and increased weakness with falls, directly admitted form Dr. Ren's office. - Patient Problems (1) Generalized weakness Current Visit: Yes Status: Acute Code(s): R53.1 - WEAKNESS SNOMED Code(s) : 30235671 Comment: Weakness and inability to ambulate initially felt to be secondary to ESBL klebsiella and pseudomonas UTI in setting of chronic simmons. She has completed 7 days of cipro. Her inability to walk however was likely related to her subsequently identified R total knee dislocation which has been repaired. Awaiting new hardware to reivse R TKA. (2) Dislocation of knee, posterior, right, closed Current Visit: Yes Status: Acute Code(s): S83.124A - POSTERIOR DISLOC OF PROXIMAL END OF TIBIA, RIGHT KNEE, INIT SNOMED Code(s): 43507923 Comment: The patient is POD#6 of open reduction and polyethylene exchange of the tibia. Plan for R TKA revision next week when the hardware comes in. (3) Atrial fibrillation Current Visit: Yes Status: Acute Code(s): I48.91 - UNSPECIFIED ATRIAL FIBRILLATION SNOMED Code(s): 50993737 Comment: HR is under good control on diltiazem CD 120mg daily and metoprolol tartrate 12.5mg BID. Continue lovenox. (4) Hyponatremia Current Visit: Yes Status: Acute Code(s): E87.1 - HYPO-OSMOLALITY AND HYPONATREMIA SNOMED Code(s): 32220930 Comment: Chronic hyponatremia. Appears to be stable. Monitor intermittently. Continue to hold HCTZ. (5) Microcytic anemia Current Visit: Yes Status: Acute Code(s): D50.9 - IRON DEFICIENCY ANEMIA, UNSPECIFIED SNOMED Code(s): 359483785 Comment: H/H stable. Continue to monitor intermittently. (6) Decubital ulcer Current Visit: Yes Status: Acute Code(s): L89.90 - PRESSURE ULCER OF UNSPECIFIED SITE, UNSPECIFIED STAGE SNOMED Code(s): 830430153 Comment: Stage II pressure ulcer noted on her coccyx. Continue barrier cream and pressure relieving measures. (7) Hypertension Current Visit: Yes Status: Chronic Priority: Medium Code(s): I10 - ESSENTIAL (PRIMARY) HYPERTENSION SNOMED Code(s): 44073994 Comment: BP under good control. Continue cardizem and metoprolol. (8) Multiple sclerosis Current Visit: Yes Status: Chronic Code(s): G35 - MULTIPLE SCLEROSIS SNOMED Code(s): 78077111 Comment: Continue Tecfidera and baclofen. (9) Hypothyroid Current Visit: Yes Status: Chronic Code(s): E03.9 - HYPOTHYROIDISM, UNSPECIFIED SNOMED Code(s): 46396453 Comment: TSH in appropriate range. Continue current dose of synthroid. (10) Neurogenic bladder Current Visit: Yes Status: Chronic Code(s): N31.9 - NEUROMUSCULAR DYSFUNCTION OF BLADDER, UNSPECIFIED SNOMED Code(s): 681721054 Comment: Pt has chronic simmons. Simmons exchanged earlier this hospitalization. (11) DVT prophylaxis Current Visit: Yes Status: Acute Code(s): EBW1990 - SNOMED Code(s): 592768818 Comment: nanciex (12) Full code status Current Visit: Yes Status: Acute Code(s): Z78.9 - OTHER SPECIFIED HEALTH STATUS SNOMED Code(s): 403916859 Status and Disposition: await bed offer for STR
--- NOTE | 2017-02-13 15:27 | PN ---
Progress Note - Progress Note Date of Service: 02/13/17 SOAP: Subjective: Pt reports doing alright- comfortable and pain meds help when needed. Objective: VSS- afebrile Assessment: Stable Plan: Made arrangements yesterday for a hinged knee, distal femoral replacement and cement removal parts to come in. Everything is expected by Wednesday, so I have made arrangements to add her to the OR schedule Friday 02/17. I am available first thing in the AM, so depending on the schedule she may be first case or we may have wait for a room to finish. Will know Thursday 02/16 by the afternoon.
[2017-02-13] MEDS: Gabapentin CAP(*) 300 MG PO SCH (20:44)
[2017-02-13] MEDS: Baclofen TAB* 10 MG PO SCH (20:46)
[2017-02-14] MEDS: Levothyroxine TAB* 25 MCG TAB PO SCH (06:45)
[2017-02-14] MEDS: Levothyroxine TAB* 112 MCG TAB PO SCH (06:45)
--- NOTE | 2017-02-14 07:43 | PN ---
Progress Note - Progress Note Date of Service: 02/14/17 SOAP: Subjective: resting comfortably with no complaints of pain Objective: Vital Signs Temp Pulse Resp BP Pulse Ox 98.7 F 96 16 144/78 95 02/14/17 03:40 02/14/17 03:40 02/14/17 03:40 02/14/17 03:40 02/14/17 03:40 Laboratory Last Values WBC 7.5 10^3/ul (3.5-10.8) 02/12/17 05:38 RBC 4.11 10^6/ul (4.0-5.4) 02/12/17 05:38 Hgb 9.9 g/dl (12.0-16.0) L 02/12/17 05:38 Hct 30 % (35-47) L 02/12/17 05:38 MCV 74 fL (80-97) L 02/12/17 05:38 MCH 24 pg (27-31) L 02/12/17 05:38 MCHC 33 g/dl (31-36) 02/12/17 05:38 RDW 23 % (10.5-15) H 02/12/17 05:38 Plt Count 385 10^3/ul (150-450) 02/12/17 05:38 MPV 7 um3 (7.4-10.4) L 02/12/17 05:38 Neut % (Auto) 66.3 % (38-83) 02/10/17 05:50 Lymph % (Auto) 18.8 % (25-47) L 02/10/17 05:50 [place] % (Auto) 11.5 % (1-9) H 02/10/17 05:50 Eos % (Auto) 1.7 % (0-6) 02/10/17 05:50 Baso % (Auto) 1.7 % (0-2) 02/10/17 05:50 Absolute Neuts (auto) 6.1 10^3/ul (1.5-7.7) 02/10/17 05:50 Absolute Lymphs (auto) 1.7 10^3/ul (1.0-4.8) 02/10/17 05:50 Absolute Monos (auto) 1.1 10^3/ul (0-0.8) H 02/10/17 05:50 Absolute Eos (auto) 0.2 10^3/ul (0-0.6) 02/10/17 05:50 Absolute Basos (auto) 0.2 10^3/ul (0-0.2) 02/10/17 05:50 Absolute Nucleated RBC 0 10^3/ul 02/10/17 05:50 Nucleated RBC % 0 02/10/17 05:50 INR (Anticoag Therapy) 0.97 (0.77-1.02) 02/07/17 12:21 APTT 38.9 seconds (26.0-36.3) H 02/07/17 12:21 Sodium 132 mmol/L (133-145) L 02/12/17 05:35 Potassium 3.9 mmol/L (3.5-5.0) 02/12/17 05:35 Chloride 99 mmol/L (101-111) L 02/12/17 05:35 Carbon Dioxide 25 mmol/L (22-32) 02/12/17 05:35 Anion Gap 8 mmol/L (2-11) 02/12/17 05:35 BUN 10 mg/dL (6-24) 02/12/17 05:35 Creatinine 0.42 mg/dL (0.51-0.95) L 02/12/17 05:35 Est GFR ( Amer) 190.7 (>60) 02/12/17 05:35 Est GFR (Non-Af Amer) 148.3 (>60) 02/12/17 05:35 BUN/Creatinine Ratio 23.8 (8-20) H 02/12/17 05:35 Glucose 102 mg/dL (70-100) H 02/12/17 05:35 Calcium 8.8 mg/dL (8.6-10.3) 02/12/17 05:35 Magnesium 2.0 mg/dL (1.9-2.7) 02/07/17 05:11 Iron < 15 ug/dL (50-212) L 02/05/17 06:25 TIBC 384 mcg/dL (250-450) 02/05/17 06:25 % Saturation 4 % (15-55) L 02/05/17 06:25 Unsat Iron Binding 369.09048 ug/dL 02/05/17 06:25 Ferritin 121.2 ng/mL (11-307) 02/10/17 05:50 Total Bilirubin 0.60 mg/dL (0.2-1.0) 02/03/17 15:51 AST 27 U/L (13-39) 02/03/17 15:51 ALT 14 U/L (7-52) 02/03/17 15:51 Alkaline Phosphatase 162 U/L (34-104) H 02/03/17 15:51 Troponin I 0.01 ng/mL (<0.04) 02/03/17 15:51 Total Protein 7.1 g/dL (6.4-8.9) 02/03/17 15:51 Albumin 3.8 g/dL (3.2-5.2) 02/03/17 15:51 Globulin 3.3 g/dL (2-4) 02/03/17 15:51 Albumin/Globulin Ratio 1.2 (1-3) 02/03/17 15:51 Urine Color Yellow 02/03/17 15:30 Urine Appearance Cloudy 02/03/17 15:30 Urine pH 5.0 (5-9) 02/03/17 15:30 Ur Specific [place] 1.011 (1.010-1.030) 02/03/17 15:30 Urine Protein Negative (Negative) 02/03/17 15:30 Urine Ketones 1+ (Negative) H 02/03/17 15:30 Urine Blood Negative (Negative) 02/03/17 15:30 Urine Nitrate Positive (Negative) H 02/03/17 15:30 Urine Bilirubin Negative (Negative) 02/03/17 15:30 Urine Urobilinogen Negative (Negative) 02/03/17 15:30 Ur Leukocyte Esterase 2+ (Negative) H 02/03/17 15:30 Urine WBC (Auto) 2+(11-20/hpf) (Absent) H 02/03/17 15:30 Urine RBC (Auto) Trace(0-2/hpf) (Absent) 02/03/17 15:30 Ur Squamous Epith Cells Present (Absent) H 02/03/17 15:30 Urine Bacteria 1+ (Absent) H 02/03/17 15:30 Urine Glucose Negative (Negative) 02/03/17 15:30 Urine Ascorbic Acid * (Negative) H 02/03/17 15:30 Blood Type B Positive 12/22/17 06:22 Antibody Screen Positive 02/05/17 06:22 Antibody Identification Anti-K 02/05/17 06:22 Direct Antiglob Test Negative 02/05/17 06:22 Crossmatch See Detail 02/05/17 06:22 PE: NVI Assessment: 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
[2017-02-14] MEDS: Metoprolol Tartrate TAB* 25 MG PO SCH ×2 (09:14→20:46)
[2017-02-14] MEDS: PTO:Dimethyl Fumarate(NF) 240 MG CAP PO SCH ×2 (09:14→20:48)
[2017-02-14] MEDS: Diltiazem CD CAP* 120 MG PO SCH (09:14)
[2017-02-14] MEDS: Sertraline* 100 MG TAB PO SCH (09:14)
[2017-02-14] MEDS: Magnesium Oxide TAB* 400 MG PO SCH (09:14)
[2017-02-14] MEDS: Aspirin TAB* 325 MG PO SCH (09:14)
[2017-02-14] MEDS: Cyanocobalamin TAB* 500 MCG PO SCH (09:15)
[2017-02-14] MEDS: Ferrous Sulfate TAB* 325 MG PO SCH ×2 (09:15→20:48)
[2017-02-14] MEDS: Ascorbic Acid TAB* 500 MG PO SCH (09:15)
[2017-02-14] MEDS: Enoxaparin(*) 100 MG/ML SYR SUBCUT SCH ×2 (09:15→20:49)
--- NOTE | 2017-02-14 16:05 | PN ---
Subjective Date of Service: 02/14/17 Interval History: Pt is feeling well. She has no R knee pain. No SOB or CP. Family History: Unchanged from Admission Social History: Unchanged from Admission Past Medical History: Unchanged from Admission Objective Active Medications: Acetaminophen (Tylenol Tab*) 650 mg PO Q4H PRN PRN Reason: FEVER/PAIN Last Admin: 02/03/17 19:26 Dose: 650 mg Ascorbic Acid (Vitamin C Tab*) 500 mg PO DAILY [facility] Last Admin: 02/14/17 09:15 Dose: 500 mg Aspirin (Aspirin Tab*) 325 mg PO DAILY [facility] Last Admin: 02/14/17 09:14 Dose: 325 mg Baclofen (Lioresal Tab*) 10 mg PO BEDTIME [facility] Last Admin: 02/13/17 20:46 Dose: 10 mg Cyanocobalamin (Vitamin B12 Tab*) 500 mcg PO DAILY [facility] Last Admin: 02/14/17 09:15 Dose: 500 mcg Diltiazem HCl (Cardizem Cd Cap*) 120 mg PO DAILY [facility] Last Admin: 02/14/17 09:14 Dose: 120 mg Dimethyl Fumarate (Tecfidera(Nf)) 240 mg PO BID [facility] Last Admin: 02/14/17 09:14 Dose: 240 mg Diphenhydramine HCl (Benadryl Po*) 25 mg PO Q6H PRN PRN Reason: itching Docusate Sodium (Colace Cap*) 100 mg PO BID PRN PRN Reason: CONSTIPATION Last Admin: 02/09/17 22:49 Dose: 100 mg Enoxaparin Sodium (Lovenox(*)) 90 mg SUBCUT Q12H [facility] Last Admin: 02/14/17 09:15 Dose: 90 mg Ferrous Sulfate (Ferrous Sulfate Tab*) 325 mg PO BID [facility] Last Admin: 02/14/17 09:15 Dose: 325 mg Gabapentin (Neurontin Cap(*)) 300 mg PO BEDTIME [facility] Last Admin: 02/13/17 20:44 Dose: 300 mg Levothyroxine Sodium (Synthroid Tab*) 112 mcg PO DAILY@0600 [facility] Last Admin: 02/14/17 06:45 Dose: 112 mcg Levothyroxine Sodium (Synthroid Tab*) 25 mcg PO DAILY@0600 [facility] Last Admin: 02/14/17 06:45 Dose: 25 mcg Magnesium Oxide (Magox 400 Tab*) 800 mg PO DAILY [facility] Last Admin: 02/14/17 09:14 Dose: 800 mg Metoprolol Tartrate (Lopressor Tab*) 12.5 mg PO Q12HR [facility] Last Admin: 02/14/17 09:14 Dose: 12.5 mg Ondansetron HCl (Zofran Inj*) 4 mg IV Q6H PRN PRN Reason: nausea Oxycodone HCl (Roxycodone Tab*) 5 mg PO Q4H PRN PRN Reason: PAIN Last Admin: 02/11/17 20:30 Dose: 5 mg Polyethylene Glycol/Electrolytes (Miralax*) 17 gm PO DAILY PRN PRN Reason: CONSTIPATION Last Admin: 02/10/17 11:04 Dose: 17 gm Sertraline HCl (Zoloft*) 100 mg PO DAILY [facility] Last Admin: 02/14/17 09:14 Dose: 100 mg Vital Signs - 8 hr 02/14/17 02/14/17 02/14/17 08:00 08:05 12:09 Temperature 97.9 F 98.6 F Pulse Rate 83 92 Respiratory 18 17 18 Rate Blood Pressure 149/80 146/68 (mmHg) O2 Sat by Pulse 95 93 Oximetry 02/14/17 15:40 Temperature 98.4 F Pulse Rate 63 Respiratory 16 Rate Blood Pressure 126/72 (mmHg) O2 Sat by Pulse 97 Oximetry Oxygen Devices in Use Now: None Appearance: Elderly female sitting up in bed, NAD Eyes: No Scleral Icterus Ears/Nose/Mouth/Throat: Mucous Membranes Moist Respiratory: Symmetrical Chest Expansion and Respiratory Effort, Clear to Auscultation Cardiovascular: NL Sounds; No Murmurs; No JVD, - - irregularly irregular Abdominal: NL Sounds; No Tenderness; No Distention Extremities: No Clubbing, Cyanosis, - - R knee in cryo unit Skin: No Rash or Ulcers, No Nodules or Sclerosis Neurological: Alert and Oriented x 3 Result Diagrams: 02/12/17 05:38 02/12/17 05:35 Microbiology and Other Data: Microbiology 02/03/17 18:15 Stool Occult Blood (DWAINE) - Final Stool Assess/Plan/Problems-Billing Ms. 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 fib (not anticoagulated), b/l ankle ORIF, R knee replacement who is basically WC bound was noted to have UTI and increased weakness with falls, directly admitted form Dr. Ren's office. - Patient Problems (1) Generalized weakness Current Visit: Yes Status: Acute Code(s): R53.1 - WEAKNESS SNOMED Code(s) : 09206343 Comment: Weakness and inability to ambulate initially felt to be secondary to ESBL klebsiella and pseudomonas UTI in setting of chronic simmons. She has completed 7 days of cipro. (2) Dislocation of knee, posterior, right, closed Current Visit: Yes Status: Acute Code(s): S83.124A - POSTERIOR DISLOC OF PROXIMAL END OF TIBIA, RIGHT KNEE, INIT SNOMED Code(s): 28540423 Comment: Plan for TKA revision likely mid week when parts come in. For now keep pt in knee immobilizer and assist with transfers. (3) Atrial fibrillation Current Visit: Yes Status: Acute Code(s): I48.91 - UNSPECIFIED ATRIAL FIBRILLATION SNOMED Code(s): 83022004 Comment: HR is under good control on diltiazem CD 120mg daily and metoprolol tartrate 12.5mg BID. Continue lovenox until surgery complete than can go back on xarelto. (4) Hyponatremia Current Visit: Yes Status: Acute Code(s): E87.1 - HYPO-OSMOLALITY AND HYPONATREMIA SNOMED Code(s): 97390586 Comment: Chronic hyponatremia. Appears to be stable. Monitor intermittently. Continue to hold HCTZ. (5) Microcytic anemia Current Visit: Yes Status: Acute Code(s): D50.9 - IRON DEFICIENCY ANEMIA, UNSPECIFIED SNOMED Code(s): 128732117 Comment: H/H stable. Continue to monitor intermittently. (6) Decubital ulcer Current Visit: Yes Status: Acute Code(s): L89.90 - PRESSURE ULCER OF UNSPECIFIED SITE, UNSPECIFIED STAGE SNOMED Code(s): 396146429 Comment: Stage II pressure ulcer noted on her coccyx. Continue barrier cream and pressure relieving measures. (7) Hypertension Current Visit: Yes Status: Chronic Priority: Medium Code(s): I10 - ESSENTIAL (PRIMARY) HYPERTENSION SNOMED Code(s): 95127146 Comment: BP under good control. Continue cardizem and metoprolol. (8) Multiple sclerosis Current Visit: Yes Status: Chronic Code(s): G35 - MULTIPLE SCLEROSIS SNOMED Code(s): 81194747 Comment: Continue Tecfidera and baclofen. (9) Hypothyroid Current Visit: Yes Status: Chronic Code(s): E03.9 - HYPOTHYROIDISM, UNSPECIFIED SNOMED Code(s): 17371521 Comment: TSH in appropriate range. Continue current dose of synthroid. (10) Neurogenic bladder Current Visit: Yes Status: Chronic Code(s): N31.9 - NEUROMUSCULAR DYSFUNCTION OF BLADDER, UNSPECIFIED SNOMED Code(s): 768586956 Comment: Pt has chronic simmons. Simmons exchanged earlier this hospitalization. (11) DVT prophylaxis Current Visit: Yes Status: Acute Code(s): COT1448 - SNOMED Code(s): 713391449 Comment: nanciex (12) Full code status Current Visit: Yes Status: Acute Code(s): Z78.9 - OTHER SPECIFIED HEALTH STATUS SNOMED Code(s): 419100049 Status and Disposition: await bed offer for STR
[2017-02-14] MEDS: Gabapentin CAP(*) 300 MG PO SCH (20:46)
[2017-02-14] MEDS: Baclofen TAB* 10 MG PO SCH (20:47)
[2017-02-15] MEDS: Levothyroxine TAB* 112 MCG TAB PO SCH (06:14)
[2017-02-15] MEDS: Levothyroxine TAB* 25 MCG TAB PO SCH (06:14)
[2017-02-15 06:43] LABS: Hematocrit 33 % (35-47); Hemoglobin 10.5 g/dl (12.0-16.0); Mean Corpuscular HGB Conc 32 g/dl (31-36); Mean Corpuscular Hemoglobin 24 pg (27-31); Mean Corpuscular Volume 75 fL (80-97); Mean Platelet Volume 6 um3 (7.4-10.4); Platelet Count 383 10^3/ul (150-450); Red Blood Count 4.35 10^6/ul (4.0-5.4); Red Cell Distribution Width 23 % (10.5-15); White Blood Count 5.5 10^3/ul (3.5-10.8)
[2017-02-15 06:56] LABS: EGFR Non-African American 118.5 (>60)
[2017-02-15] MEDS ORDERED: Potassium Chlor TAB* 20 MEQ TAB.ER PO ONE (07:41)
--- NOTE | 2017-02-15 07:47 | PN ---
Subjective Date of Service: 02/15/17 Interval History: Pt is feeling well. She is anxious to get surgery done. She denies any pain at this time. No SOB. No diarrhea. Family History: Unchanged from Admission Social History: Unchanged from Admission Past Medical History: Unchanged from Admission Objective Active Medications: Acetaminophen (Tylenol Tab*) 650 mg PO Q4H PRN PRN Reason: FEVER/PAIN Last Admin: 02/03/17 19:26 Dose: 650 mg Ascorbic Acid (Vitamin C Tab*) 500 mg PO DAILY [facility] Last Admin: 02/14/17 09:15 Dose: 500 mg Aspirin (Aspirin Tab*) 325 mg PO DAILY [facility] Last Admin: 02/14/17 09:14 Dose: 325 mg Baclofen (Lioresal Tab*) 10 mg PO BEDTIME [facility] Last Admin: 02/14/17 20:47 Dose: 10 mg Cyanocobalamin (Vitamin B12 Tab*) 500 mcg PO DAILY [facility] Last Admin: 02/14/17 09:15 Dose: 500 mcg Diltiazem HCl (Cardizem Cd Cap*) 120 mg PO DAILY [facility] Last Admin: 02/14/17 09:14 Dose: 120 mg Dimethyl Fumarate (Tecfidera(Nf)) 240 mg PO BID [facility] Last Admin: 02/14/17 20:48 Dose: Not Given Diphenhydramine HCl (Benadryl Po*) 25 mg PO Q6H PRN PRN Reason: itching Docusate Sodium (Colace Cap*) 100 mg PO BID PRN PRN Reason: CONSTIPATION Last Admin: 02/09/17 22:49 Dose: 100 mg Enoxaparin Sodium (Lovenox(*)) 90 mg SUBCUT Q12H [facility] Last Admin: 02/14/17 20:49 Dose: 90 mg Ferrous Sulfate (Ferrous Sulfate Tab*) 325 mg PO BID [facility] Last Admin: 02/14/17 20:48 Dose: 325 mg Gabapentin (Neurontin Cap(*)) 300 mg PO BEDTIME [facility] Last Admin: 02/14/17 20:46 Dose: 300 mg Levothyroxine Sodium (Synthroid Tab*) 112 mcg PO DAILY@0600 [facility] Last Admin: 02/15/17 06:14 Dose: 112 mcg Levothyroxine Sodium (Synthroid Tab*) 25 mcg PO DAILY@0600 [facility] Last Admin: 02/15/17 06:14 Dose: 25 mcg Magnesium Oxide (Magox 400 Tab*) 800 mg PO DAILY [facility] Last Admin: 02/14/17 09:14 Dose: 800 mg Metoprolol Tartrate (Lopressor Tab*) 12.5 mg PO Q12HR [facility] Last Admin: 02/14/17 20:46 Dose: 12.5 mg Ondansetron HCl (Zofran Inj*) 4 mg IV Q6H PRN PRN Reason: nausea Oxycodone HCl (Roxycodone Tab*) 5 mg PO Q4H PRN PRN Reason: PAIN Last Admin: 02/11/17 20:30 Dose: 5 mg Polyethylene Glycol/Electrolytes (Miralax*) 17 gm PO DAILY PRN PRN Reason: CONSTIPATION Last Admin: 02/10/17 11:04 Dose: 17 gm Sertraline HCl (Zoloft*) 100 mg PO DAILY [facility] Last Admin: 02/14/17 09:14 Dose: 100 mg Vital Signs - 8 hr 02/15/17 02/15/17 02/15/17 00:20 04:23 07:36 Temperature 98.7 F 99.4 F 98.5 F Pulse Rate 88 74 97 Respiratory 16 16 16 Rate Blood Pressure 138/75 140/80 142/86 (mmHg) O2 Sat by Pulse 95 96 96 Oximetry 02/15/17 07:40 Temperature Pulse Rate Respiratory Rate Blood Pressure (mmHg) O2 Sat by Pulse 96 Oximetry Oxygen Devices in Use Now: None Appearance: Elderly female sitting up in bed, NAD Eyes: No Scleral Icterus Ears/Nose/Mouth/Throat: Mucous Membranes Moist Respiratory: Symmetrical Chest Expansion and Respiratory Effort, Clear to Auscultation - anteriorly Cardiovascular: NL Sounds; No Murmurs; No JVD, No Edema, - - irregularly irregular, controlled rate Abdominal: NL Sounds; No Tenderness; No Distention Extremities: No Clubbing, Cyanosis, - - R knee in EDGAR wrap and cryo unit Skin: No Nodules or Sclerosis Neurological: Alert and Oriented x 3 Result Diagrams: 02/15/17 06:31 02/15/17 06:31 Microbiology and Other Data: Microbiology 02/03/17 18:15 Stool Occult Blood (DWAINE) - Final Stool Assess/Plan/Problems-Billing Ms. 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 fib (not anticoagulated), b/l ankle ORIF, R knee replacement who is basically WC bound was noted to have UTI and increased weakness with falls, directly admitted form Dr. Ren's office. - Patient Problems (1) Generalized weakness Current Visit: Yes Status: Acute Code(s): R53.1 - WEAKNESS SNOMED Code(s) : 51186348 Comment: Weakness and inability to ambulate initially felt to be secondary to ESBL klebsiella and pseudomonas UTI in setting of chronic simmons, present on admission. She has completed 7 days of cipro. (2) Dislocation of knee, posterior, right, closed Current Visit: Yes Status: Acute Code(s): S83.124A - POSTERIOR DISLOC OF PROXIMAL END OF TIBIA, RIGHT KNEE, INIT SNOMED Code(s): 10142280 Comment: Plan for TKA revision likely mid week when parts come in. For now keep pt in knee immobilizer and assist with transfers. Pain is controlled. (3) Atrial fibrillation Current Visit: Yes Status: Acute Code(s): I48.91 - UNSPECIFIED ATRIAL FIBRILLATION SNOMED Code(s): 34544137 Comment: HR is under good control on diltiazem CD 120mg daily and metoprolol tartrate 12.5mg BID. Continue lovenox until surgery complete than can go back on xarelto. (4) Hyponatremia Current Visit: Yes Status: Acute Code(s): E87.1 - HYPO-OSMOLALITY AND HYPONATREMIA SNOMED Code(s): 14276098 Comment: Na finally normalized. Hold HCTZ indefinitely. (5) Microcytic anemia Current Visit: Yes Status: Acute Code(s): D50.9 - IRON DEFICIENCY ANEMIA, UNSPECIFIED SNOMED Code(s): 379158309 Comment: H/H slightly better today. Continue to monitor intermittently. (6) Decubital ulcer Current Visit: Yes Status: Acute Code(s): L89.90 - PRESSURE ULCER OF UNSPECIFIED SITE, UNSPECIFIED STAGE SNOMED Code(s): 834766771 Comment: Continue barrier cream and pressure relieving measures. Will inspect with nursing later today. (7) Hypertension Current Visit: Yes Status: Chronic Priority: Medium Code(s): I10 - ESSENTIAL (PRIMARY) HYPERTENSION SNOMED Code(s): 72529381 Comment: BP under fair control. Continue cardizem and metoprolol. (8) Multiple sclerosis Current Visit: Yes Status: Chronic Code(s): G35 - MULTIPLE SCLEROSIS SNOMED Code(s): 48933075 Comment: Continue Tecfidera and baclofen. (9) Hypothyroid Current Visit: Yes Status: Chronic Code(s): E03.9 - HYPOTHYROIDISM, UNSPECIFIED SNOMED Code(s): 25480773 Comment: TSH in appropriate range. Continue current dose of synthroid. (10) Neurogenic bladder Current Visit: Yes Status: Chronic Code(s): N31.9 - NEUROMUSCULAR DYSFUNCTION OF BLADDER, UNSPECIFIED SNOMED Code(s): 394472039 Comment: Pt has chronic simmons. Simmons exchanged earlier this hospitalization. (11) DVT prophylaxis Current Visit: Yes Status: Acute Code(s): VPD4726 - SNOMED Code(s): 845472293 Comment: lovenox (12) Full code status Current Visit: Yes Status: Acute Code(s): Z78.9 - OTHER SPECIFIED HEALTH STATUS SNOMED Code(s): 983196542 Status and Disposition: await bed offer for STR
--- NOTE | 2017-02-15 08:26 | PN ---
Progress Note - Progress Note Date of Service: 02/15/17 SOAP: Subjective: resting comfortably with no complaints Objective: Vital Signs Temp Pulse Resp BP Pulse Ox 98.5 F 97 16 142/86 96 02/15/17 07:36 02/15/17 07:36 02/15/17 07:36 02/15/17 07:36 02/15/17 07:40 Laboratory Last Values WBC 5.5 10^3/ul (3.5-10.8) 02/15/17 06:31 RBC 4.35 10^6/ul (4.0-5.4) 02/15/17 06:31 Hgb 10.5 g/dl (12.0-16.0) L 02/15/17 06:31 Hct 33 % (35-47) L 02/15/17 06:31 MCV 75 fL (80-97) L 02/15/17 06:31 MCH 24 pg (27-31) L 02/15/17 06:31 MCHC 32 g/dl (31-36) 02/15/17 06:31 RDW 23 % (10.5-15) H 02/15/17 06:31 Plt Count 383 10^3/ul (150-450) 02/15/17 06:31 MPV 6 um3 (7.4-10.4) L 02/15/17 06:31 Neut % (Auto) 66.3 % (38-83) 02/10/17 05:50 Lymph % (Auto) 18.8 % (25-47) L 02/10/17 05:50 [place] % (Auto) 11.5 % (1-9) H 02/10/17 05:50 Eos % (Auto) 1.7 % (0-6) 02/10/17 05:50 Baso % (Auto) 1.7 % (0-2) 02/10/17 05:50 Absolute Neuts (auto) 6.1 10^3/ul (1.5-7.7) 02/10/17 05:50 Absolute Lymphs (auto) 1.7 10^3/ul (1.0-4.8) 02/10/17 05:50 Absolute Monos (auto) 1.1 10^3/ul (0-0.8) H 02/10/17 05:50 Absolute Eos (auto) 0.2 10^3/ul (0-0.6) 02/10/17 05:50 Absolute Basos (auto) 0.2 10^3/ul (0-0.2) 02/10/17 05:50 Absolute Nucleated RBC 0 10^3/ul 02/10/17 05:50 Nucleated RBC % 0 02/10/17 05:50 INR (Anticoag Therapy) 0.97 (0.77-1.02) 02/07/17 12:21 APTT 38.9 seconds (26.0-36.3) H 02/07/17 12:21 Sodium 136 mmol/L (133-145) 02/15/17 06:31 Potassium 3.6 mmol/L (3.5-5.0) 02/15/17 06:31 Chloride 101 mmol/L (101-111) 02/15/17 06:31 Carbon Dioxide 30 mmol/L (22-32) 02/15/17 06:31 Anion Gap 5 mmol/L (2-11) 02/15/17 06:31 BUN 8 mg/dL (6-24) 02/15/17 06:31 Creatinine 0.51 mg/dL (0.51-0.95) 02/15/17 06:31 Est GFR ( Amer) 152.4 (>60) 02/15/17 06:31 Est GFR (Non-Af Amer) 118.5 (>60) 02/15/17 06:31 BUN/Creatinine Ratio 15.7 (8-20) 02/15/17 06:31 Glucose 103 mg/dL (70-100) H 02/15/17 06:31 Calcium 8.9 mg/dL (8.6-10.3) 02/15/17 06:31 Magnesium 2.0 mg/dL (1.9-2.7) 02/07/17 05:11 Iron < 15 ug/dL (50-212) L 02/05/17 06:25 TIBC 384 mcg/dL (250-450) 02/05/17 06:25 % Saturation 4 % (15-55) L 02/05/17 06:25 Unsat Iron Binding 369.53005 ug/dL 02/05/17 06:25 Ferritin 121.2 ng/mL (11-307) 02/10/17 05:50 Total Bilirubin 0.60 mg/dL (0.2-1.0) 02/03/17 15:51 AST 27 U/L (13-39) 02/03/17 15:51 ALT 14 U/L (7-52) 02/03/17 15:51 Alkaline Phosphatase 162 U/L (34-104) H 02/03/17 15:51 Troponin I 0.01 ng/mL (<0.04) 02/03/17 15:51 Total Protein 7.1 g/dL (6.4-8.9) 02/03/17 15:51 Albumin 3.8 g/dL (3.2-5.2) 02/03/17 15:51 Globulin 3.3 g/dL (2-4) 02/03/17 15:51 Albumin/Globulin Ratio 1.2 (1-3) 02/03/17 15:51 Urine Color Yellow 02/03/17 15:30 Urine Appearance Cloudy 02/03/17 15:30 Urine pH 5.0 (5-9) 02/03/17 15:30 Ur Specific [place] 1.011 (1.010-1.030) 02/03/17 15:30 Urine Protein Negative (Negative) 02/03/17 15:30 Urine Ketones 1+ (Negative) H 02/03/17 15:30 Urine Blood Negative (Negative) 02/03/17 15:30 Urine Nitrate Positive (Negative) H 02/03/17 15:30 Urine Bilirubin Negative (Negative) 02/03/17 15:30 Urine Urobilinogen Negative (Negative) 02/03/17 15:30 Ur Leukocyte Esterase 2+ (Negative) H 02/03/17 15:30 Urine WBC (Auto) 2+(11-20/hpf) (Absent) H 02/03/17 15:30 Urine RBC (Auto) Trace(0-2/hpf) (Absent) 02/03/17 15:30 Ur Squamous Epith Cells Present (Absent) H 02/03/17 15:30 Urine Bacteria 1+ (Absent) H 02/03/17 15:30 Urine Glucose Negative (Negative) 02/03/17 15:30 Urine Ascorbic Acid * (Negative) H 02/03/17 15:30 Blood Type B Positive 02/05/17 06:22 Antibody Screen Positive 02/05/17 06:22 Antibody Identification Anti-K 02/05/17 06:22 Direct Antiglob Test Negative 02/05/17 06:22 Crossmatch See Detail 02/05/17 06:22 incision: c/d; dressing changed PE: NVI Assessment: s/p I&D with polyexchange right TKA; recurrent dislocations Plan: 1) WBAT with immobilizer 2) plan OR Wed for revision right TKA with Berto
[2017-02-15] MEDS: Cyanocobalamin TAB* 500 MCG PO SCH (09:28)
[2017-02-15] MEDS: Metoprolol Tartrate TAB* 25 MG PO SCH ×2 (09:28→20:23)
[2017-02-15] MEDS: Aspirin TAB* 325 MG PO SCH (09:28)
[2017-02-15] MEDS: Diltiazem CD CAP* 120 MG PO SCH (09:28)
[2017-02-15] MEDS: Magnesium Oxide TAB* 400 MG PO SCH (09:28)
[2017-02-15] MEDS: Ferrous Sulfate TAB* 325 MG PO SCH ×2 (09:29→20:22)
[2017-02-15] MEDS: Sertraline* 100 MG TAB PO SCH (09:29)
[2017-02-15] MEDS: Ascorbic Acid TAB* 500 MG PO SCH (09:29)
[2017-02-15] MEDS: Enoxaparin(*) 100 MG/ML SYR SUBCUT SCH ×2 (09:29→20:57)
[2017-02-15] MEDS: PTO:Dimethyl Fumarate(NF) 240 MG CAP PO SCH ×2 (09:37→20:59)
[2017-02-15] MEDS: Acetaminophen TAB* 325 MG PO PRN (11:41)
[2017-02-15] MEDS: Gabapentin CAP(*) 300 MG PO SCH (20:23)
[2017-02-15] MEDS: Baclofen TAB* 10 MG PO SCH (20:23)
[2017-02-16] MEDS: Levothyroxine TAB* 112 MCG TAB PO SCH (05:26)
[2017-02-16] MEDS: Levothyroxine TAB* 25 MCG TAB PO SCH (05:26)
[2017-02-16] MEDS: Enoxaparin(*) 100 MG/ML SYR SUBCUT SCH (08:03)
[2017-02-16] MEDS: Ascorbic Acid TAB* 500 MG PO SCH (08:03)
[2017-02-16] MEDS: Magnesium Oxide TAB* 400 MG PO SCH (08:03)
[2017-02-16] MEDS: Metoprolol Tartrate TAB* 25 MG PO SCH ×2 (08:04→20:13)
[2017-02-16] MEDS: Sertraline* 100 MG TAB PO SCH (08:04)
[2017-02-16] MEDS: Ferrous Sulfate TAB* 325 MG PO SCH ×2 (08:04→20:13)
[2017-02-16] MEDS: Diltiazem CD CAP* 120 MG PO SCH (08:04)
[2017-02-16] MEDS: Aspirin TAB* 325 MG PO SCH (08:04)
[2017-02-16] MEDS: Cyanocobalamin TAB* 500 MCG PO SCH (08:04)
[2017-02-16] MEDS: PTO:Dimethyl Fumarate(NF) 240 MG CAP PO SCH ×3 (08:05→20:13)
--- NOTE | 2017-02-16 09:11 | PN ---
Subjective Date of Service: 02/16/17 Interval History: Pt feels well, awaiting OR on Wednesday Family History: Unchanged from Admission Social History: Unchanged from Admission Past Medical History: Unchanged from Admission Objective Active Medications: Acetaminophen (Tylenol Tab*) 650 mg PO Q4H PRN PRN Reason: FEVER/PAIN Last Admin: 02/15/17 11:41 Dose: 650 mg Ascorbic Acid (Vitamin C Tab*) 500 mg PO DAILY [facility] Last Admin: 02/16/17 08:03 Dose: 500 mg Aspirin (Aspirin Tab*) 325 mg PO DAILY [facility] Last Admin: 02/16/17 08:04 Dose: 325 mg Baclofen (Lioresal Tab*) 10 mg PO BEDTIME [facility] Last Admin: 02/15/17 20:23 Dose: 10 mg Cyanocobalamin (Vitamin B12 Tab*) 500 mcg PO DAILY [facility] Last Admin: 02/16/17 08:04 Dose: 500 mcg Diltiazem HCl (Cardizem Cd Cap*) 120 mg PO DAILY [facility] Last Admin: 02/16/17 08:04 Dose: 120 mg Dimethyl Fumarate (Tecfidera(Nf)) 240 mg PO BID [facility] Last Admin: 02/16/17 08:05 Dose: Not Given Diphenhydramine HCl (Benadryl Po*) 25 mg PO Q6H PRN PRN Reason: itching Docusate Sodium (Colace Cap*) 100 mg PO BID PRN PRN Reason: CONSTIPATION Last Admin: 02/09/17 22:49 Dose: 100 mg Enoxaparin Sodium (Lovenox(*)) 90 mg SUBCUT Q12H [facility] Last Admin: 02/16/17 08:03 Dose: 90 mg Ferrous Sulfate (Ferrous Sulfate Tab*) 325 mg PO BID [facility] Last Admin: 02/16/17 08:04 Dose: 325 mg Gabapentin (Neurontin Cap(*)) 300 mg PO BEDTIME [facility] Last Admin: 02/15/17 20:23 Dose: 300 mg Levothyroxine Sodium (Synthroid Tab*) 112 mcg PO DAILY@0600 [facility] Last Admin: 02/16/17 05:26 Dose: 112 mcg Levothyroxine Sodium (Synthroid Tab*) 25 mcg PO DAILY@0600 [facility] Last Admin: 02/16/17 05:26 Dose: 25 mcg Magnesium Oxide (Magox 400 Tab*) 800 mg PO DAILY [facility] Last Admin: 02/16/17 08:03 Dose: 800 mg Metoprolol Tartrate (Lopressor Tab*) 12.5 mg PO Q12HR [facility] Last Admin: 02/16/17 08:04 Dose: 12.5 mg Ondansetron HCl (Zofran Inj*) 4 mg IV Q6H PRN PRN Reason: nausea Oxycodone HCl (Roxycodone Tab*) 5 mg PO Q4H PRN PRN Reason: PAIN Last Admin: 02/11/17 20:30 Dose: 5 mg Polyethylene Glycol/Electrolytes (Miralax*) 17 gm PO DAILY PRN PRN Reason: CONSTIPATION Last Admin: 02/10/17 11:04 Dose: 17 gm Sertraline HCl (Zoloft*) 100 mg PO DAILY [facility] Last Admin: 02/16/17 08:04 Dose: 100 mg Vital Signs - 8 hr 02/16/17 02/16/17 02/16/17 03:27 07:52 08:00 Temperature 97.3 F 98.1 F Pulse Rate 76 104 Respiratory 16 16 16 Rate Blood Pressure 139/83 140/90 (mmHg) O2 Sat by Pulse 93 94 Oximetry Oxygen Devices in Use Now: None Appearance: 71 yo f in nAD, AAOx3 Eyes: No Scleral Icterus, PERRLA Ears/Nose/Mouth/Throat: NL Teeth, Lips, Gums, Mucous Membranes Moist Neck: NL Appearance and Movements; NL JVP, Trachea Midline Respiratory: Symmetrical Chest Expansion and Respiratory Effort, Clear to Auscultation Cardiovascular: NL Sounds; No Murmurs; No JVD, - - irregular Abdominal: NL Sounds; No Tenderness; No Distention, No Hepatosplenomegaly Lymphatic: No Cervical Adenopathy Extremities: No Clubbing, Cyanosis, - - trace pedal edema on R, r knee in immobilizer Skin: No Nodules or Sclerosis, - - b/l lower extr browinsh discoloration from hemosiderin deposits Neurological: Alert and Oriented x 3, - - R LE unable to raise against gravity Result Diagrams: 02/15/17 06:31 02/15/17 06:31 Microbiology and Other Data: Microbiology 02/03/17 18:15 Stool Occult Blood (DWAINE) - Final Stool Assess/Plan/Problems-Billing Ms. 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 fib (not anticoagulated), b/l ankle ORIF, R knee replacement who is basically WC bound was noted to have UTI and increased weakness with falls, directly admitted form Dr. Ren's office. - Patient Problems (1) Dislocation of knee, posterior, right, closed Comment: Plan for TKA revision likely mid week when parts come in. For now keep pt in knee immobilizer and assist with transfers. Pain is controlled. (2) Generalized weakness Comment: Weakness and inability to ambulate initially felt to be secondary to ESBL klebsiella and pseudomonas UTI in setting of chronic simmons, present on admission. She has completed 7 days of cipro. (3) Atrial fibrillation Comment: HR is under good control on diltiazem CD 120mg daily and metoprolol tartrate 12.5mg BID. Continue lovenox until surgery complete than can go back on xarelto. (4) Microcytic anemia Comment: H/H slightly better today. Continue to monitor intermittently. (5) Hyponatremia Comment: Na finally normalized. Hold HCTZ indefinitely. (6) Hypothyroid Comment: TSH in appropriate range. Continue current dose of synthroid. (7) Multiple sclerosis Comment: Continue Tecfidera and baclofen. (8) Hypertension Comment: BP under fair control. Continue cardizem and metoprolol. (9) Decubital ulcer Comment: Continue barrier cream and pressure relieving measures. resolved (10) Neurogenic bladder Comment: Pt has chronic simmons. Simmons exchanged earlier this hospitalization. (11) DVT prophylaxis Comment: lovenox Status and Disposition: await surgery on Wednesday
[2017-02-16] MEDS ORDERED: Buffered Lidocaine 0.9% SYRIN* 5 ML/SYR SYRINGE INTRADERM ONE (10:22)
--- NOTE | 2017-02-16 10:52 | PN ---
Progress Note - Progress Note Date of Service: 02/16/17 SOAP: Subjective: []Patient seen at bedside. She is comfortable and denies RLE pain. Denies CP, SOB. Objective: []General: Laying comfortably in bed with immobilizer in place RLE: DP/PT 2+, df/pf intact. calf supple and nontender without erythema. Vital Signs Temp 98.1 F 02/16/17 07:52 Pulse 104 02/16/17 07:52 Resp 16 02/16/17 08:00 BP 140/90 02/16/17 07:52 Pulse Ox 94 02/16/17 07:52 Intake & Output 02/15/17 02/16/17 02/16/17 18:59 06:59 18:59 Intake Total 460 500 Output Total 625 800 Balance -165 -300 Intake: Oral 460 500 Output: Garcia 625 800 Other: Estimated Stool Amount Small Laboratory Last Values WBC 5.5 10^3/ul (3.5-10.8) 02/15/17 06:31 RBC 4.35 10^6/ul (4.0-5.4) 02/15/17 06:31 Hgb 10.5 g/dl (12.0-16.0) L 02/15/17 06:31 Hct 33 % (35-47) L 02/15/17 06:31 MCV 75 fL (80-97) L 02/15/17 06:31 MCH 24 pg (27-31) L 02/15/17 06:31 MCHC 32 g/dl (31-36) 02/15/17 06:31 RDW 23 % (10.5-15) H 02/15/17 06:31 Plt Count 383 10^3/ul (150-450) 02/15/17 06:31 MPV 6 um3 (7.4-10.4) L 02/15/17 06:31 Neut % (Auto) 66.3 % (38-83) 02/10/17 05:50 Lymph % (Auto) 18.8 % (25-47) L 02/10/17 05:50 Otero % (Auto) 11.5 % (1-9) H 02/10/17 05:50 Eos % (Auto) 1.7 % (0-6) 02/10/17 05:50 Baso % (Auto) 1.7 % (0-2) 02/10/17 05:50 Absolute Neuts (auto) 6.1 10^3/ul (1.5-7.7) 02/10/17 05:50 Absolute Lymphs (auto) 1.7 10^3/ul (1.0-4.8) 02/10/17 05:50 Absolute Monos (auto) 1.1 10^3/ul (0-0.8) H 02/10/17 05:50 Absolute Eos (auto) 0.2 10^3/ul (0-0.6) 02/10/17 05:50 Absolute Basos (auto) 0.2 10^3/ul (0-0.2) 02/10/17 05:50 Absolute Nucleated RBC 0 10^3/ul 02/10/17 05:50 Nucleated RBC % 0 02/10/17 05:50 INR (Anticoag Therapy) 0.97 (0.77-1.02) 02/07/17 12:21 APTT 38.9 seconds (26.0-36.3) H 02/07/17 12:21 Sodium 136 mmol/L (133-145) 02/15/17 06:31 Potassium 3.6 mmol/L (3.5-5.0) 02/15/17 06:31 Chloride 101 mmol/L (101-111) 02/15/17 06:31 Carbon Dioxide 30 mmol/L (22-32) 02/15/17 06:31 Anion Gap 5 mmol/L (2-11) 02/15/17 06:31 BUN 8 mg/dL (6-24) 02/15/17 06:31 Creatinine 0.51 mg/dL (0.51-0.95) 02/15/17 06:31 Est GFR ( Amer) 152.4 (>60) 02/15/17 06:31 Est GFR (Non-Af Amer) 118.5 (>60) 02/15/17 06:31 BUN/Creatinine Ratio 15.7 (8-20) 02/15/17 06:31 Glucose 103 mg/dL (70-100) H 02/15/17 06:31 Calcium 8.9 mg/dL (8.6-10.3) 02/15/17 06:31 Magnesium 2.0 mg/dL (1.9-2.7) 02/07/17 05:11 Iron < 15 ug/dL (50-212) L 02/05/17 06:25 TIBC 384 mcg/dL (250-450) 02/05/17 06:25 % Saturation 4 % (15-55) L 02/05/17 06:25 Unsat Iron Binding 369.92364 ug/dL 02/05/17 06:25 Ferritin 121.2 ng/mL (11-307) 02/10/17 05:50 Total Bilirubin 0.60 mg/dL (0.2-1.0) 02/03/17 15:51 AST 27 U/L (13-39) 02/03/17 15:51 ALT 14 U/L (7-52) 02/03/17 15:51 Alkaline Phosphatase 162 U/L (34-104) H 02/03/17 15:51 Troponin I 0.01 ng/mL (<0.04) 02/03/17 15:51 Total Protein 7.1 g/dL (6.4-8.9) 02/03/17 15:51 Albumin 3.8 g/dL (3.2-5.2) 02/03/17 15:51 Globulin 3.3 g/dL (2-4) 02/03/17 15:51 Albumin/Globulin Ratio 1.2 (1-3) 02/03/17 15:51 Urine Color Yellow 02/03/17 15:30 Urine Appearance Cloudy 02/03/17 15:30 Urine pH 5.0 (5-9) 02/03/17 15:30 Ur Specific [place] 1.011 (1.010-1.030) 02/03/17 15:30 Urine Protein Negative (Negative) 02/03/17 15:30 Urine Ketones 1+ (Negative) H 02/03/17 15:30 Urine Blood Negative (Negative) 02/03/17 15:30 Urine Nitrate Positive (Negative) H 02/03/17 15:30 Urine Bilirubin Negative (Negative) 02/03/17 15:30 Urine Urobilinogen Negative (Negative) 02/03/17 15:30 Ur Leukocyte Esterase 2+ (Negative) H 02/03/17 15:30 Urine WBC (Auto) 2+(11-20/hpf) (Absent) H 02/03/17 15:30 Urine RBC (Auto) Trace(0-2/hpf) (Absent) 02/03/17 15:30 Ur Squamous Epith Cells Present (Absent) H 02/03/17 15:30 Urine Bacteria 1+ (Absent) H 02/03/17 15:30 Urine Glucose Negative (Negative) 02/03/17 15:30 Urine Ascorbic Acid * (Negative) H 02/03/17 15:30 Blood Type B Positive 02/05/17 06:22 Antibody Screen Positive 02/05/17 06:22 Antibody Identification Anti-K 02/05/17 06:22 Direct Antiglob Test Negative 02/05/17 06:22 Crossmatch See Detail 02/05/17 06:22 Assessment: []s/p I&D with polyexchange right TKA; recurrent dislocations Plan: 1) WBAT with immobilizer 2) plan OR Wed for revision right TKA with Berto
[2017-02-16] MEDS ORDERED: Aspirin TAB* 325 MG PO SCH (17:46)
[2017-02-16] MEDS: Baclofen TAB* 10 MG PO SCH (20:13)
[2017-02-16] MEDS: Gabapentin CAP(*) 300 MG PO SCH (20:13)
[2017-02-17] MEDS: Levothyroxine TAB* 25 MCG TAB PO SCH (05:37)
[2017-02-17] MEDS: Levothyroxine TAB* 112 MCG TAB PO SCH (05:37)
[2017-02-17] MEDS ORDERED: Buffered Lidocaine 0.9% SYRIN* 5 ML/SYR SYRINGE INTRADERM ONE (06:00)
[2017-02-17 06:57] LABS: ABS Basophils 0.1 10^3/ul (0-0.2); ABS Eosinophils 0.2 10^3/ul (0-0.6); ABS Lymphocytes 1.5 10^3/ul (1.0-4.8); ABS Monocytes 0.7 10^3/ul (0-0.8); ABS Neutrophils 3.3 10^3/ul (1.5-7.7); ABS Nucleated RBC 0 10^3/ul; Eosinophil % 3.9 % (0-6); Hematocrit 31 % (35-47); Hemoglobin 10.1 g/dl (12.0-16.0); Lymphocyte % 25.8 % (25-47); Mean Corpuscular HGB Conc 33 g/dl (31-36); Mean Corpuscular Hemoglobin 24 pg (27-31); Mean Corpuscular Volume 74 fL (80-97); Mean Platelet Volume 7 um3 (7.4-10.4); Nucleated Red Blood Cells % 0; Platelet Count 353 10^3/ul (150-450); Red Blood Count 4.19 10^6/ul (4.0-5.4); White Blood Count 5.8 10^3/ul (3.5-10.8)
[2017-02-17 06:58] LABS: Red Cell Distribution Width 23 % (10.5-15)
[2017-02-17] MEDS ORDERED: ceFAZolin 2 GM PREMIX (*) 2 GM/50 ML BAG IVPB ONE ×2 (07:03→07:45)
[2017-02-17] MEDS ORDERED: Bupivacaine 0.25% SDV* 30 ML ONE (07:42)
[2017-02-17] MEDS ORDERED: Lidocaine 1% MPF wEPI 200,000* 30 ML SDV ONE (07:42)
[2017-02-17] MEDS ORDERED: fentaNYL* 50 MCG/ML 2 ML VIAL (100 MCG VIAL) ONE ×2 (07:52→12:24)
[2017-02-17] MEDS ORDERED: Midazolam* 1 MG/ML 2 ML VIAL (2 MG) ONE (07:52)
[2017-02-17] MEDS ORDERED: Propofol* 10 MG/ML 20 ML BTL IV PUSH ONE (08:38)
[2017-02-17] MEDS ORDERED: Lidocaine 2% PF* 10 ML AMP ONE (08:38)
[2017-02-17] MEDS ORDERED: Succinylcholine* 20 MG/ML 10 ML VIAL ONE (08:38)
[2017-02-17] MEDS ORDERED: Ondansetron INJ* 2 MG/ML VIAL ONE (08:38)
[2017-02-17] MEDS ORDERED: Bupivacaine 0.25% EPI 200,000* 30 ML SDV ONE (08:38)
[2017-02-17] MEDS ORDERED: Dexamethasone IV* 4 MG/ML 1 ML (4 MG) ONE (08:38)
[2017-02-17] MEDS ORDERED: Metoprolol Tartrate IV* 1 MG/ML 5 ML VIAL ONE (08:38)
[2017-02-17] MEDS ORDERED: EPHEDrine (Pressors)* 50 MG/ML VIAL ONE (08:57)
[2017-02-17] MEDS ORDERED: Phenylephrine IV* 40 MCG/ML 10 ML SYRINGE ONE ×2 (09:37→11:17)
[2017-02-17] MEDS ORDERED: HYDROmorphone INJ* 1 MG/ML CARPUJECT SYRINGE IV PRN (09:41)
[2017-02-17] MEDS ORDERED: Acetaminophen TAB* 325 MG PO PRN (09:41)
[2017-02-17 13:30] LABS: Hematocrit 30 % (35-47); Hemoglobin 9.7 g/dl (12.0-16.0)
[2017-02-17] MEDS ORDERED: oxyCODONE/Acetamin 5/325 MG* TAB PO PRN ×2 (14:14)
[2017-02-17] MEDS ORDERED: Magnesium Hydroxide LIQ* 30 ML UDC PO PRN (14:15)
--- NOTE | 2017-02-17 14:59 | RAD ---
HISTORY: Right total knee replacement COMPARISONS: February 10, 2017 VIEWS: 2, Frontal and lateral views of the right knee FINDINGS: BONE DENSITY: There is diffuse osteopenia. BONES: The patient is status post right knee arthroplasty. There is no hardware failure or osteolysis. JOINTS: The patient is status post right knee arthroplasty. ALIGNMENT: There is no dislocation. SOFT TISSUES: Unremarkable. OTHER FINDINGS: None. IMPRESSION: STATUS POST RIGHT KNEE ARTHROPLASTY
[2017-02-17] MEDS: PTO:Dimethyl Fumarate(NF) 240 MG CAP PO SCH ×3 (15:10→20:12)
[2017-02-17] MEDS: Ferrous Sulfate TAB* 325 MG PO SCH ×2 (15:11→20:11)
[2017-02-17] MEDS: Metoprolol Tartrate TAB* 25 MG PO SCH ×2 (15:11→20:16)
[2017-02-17] MEDS: Magnesium Oxide TAB* 400 MG PO SCH ×2 (15:36→16:04)
[2017-02-17] MEDS: Ascorbic Acid TAB* 500 MG PO SCH ×2 (15:36→16:04)
[2017-02-17] MEDS: Sertraline* 100 MG TAB PO SCH ×2 (15:36→16:05)
[2017-02-17] MEDS: Cyanocobalamin TAB* 500 MCG PO SCH ×2 (15:36→16:04)
[2017-02-17] MEDS: NS 0.9% 50 ML* 50 ML with ceFAZolin 1 GM ADVAN(*) 1 GM IVPB SCH ×4 (16:18→23:18)
--- NOTE | 2017-02-17 18:22 | PN ---
Subjective Date of Service: 02/17/17 Interval History: pt is seen after her r knee replacement, doing well, denies pain Family History: Unchanged from Admission Social History: Unchanged from Admission Past Medical History: Unchanged from Admission Objective Active Medications: Acetaminophen (Tylenol Tab*) 650 mg PO Q4H PRN PRN Reason: FEVER/PAIN Last Admin: 02/15/17 11:41 Dose: 650 mg Acetaminophen (Tylenol Tab*) 650 mg PO ONCE PRN PRN Reason: PAIN - MILD Ascorbic Acid (Vitamin C Tab*) 500 mg PO DAILY@0900 [facility] Last Admin: 02/17/17 15:36 Dose: 500 mg Baclofen (Lioresal Tab*) 10 mg PO BEDTIME [facility] Last Admin: 02/16/17 20:13 Dose: 10 mg Cyanocobalamin (Vitamin B12 Tab*) 500 mcg PO DAILY@0900 [facility] Last Admin: 02/17/17 15:36 Dose: 500 mcg Diltiazem HCl (Cardizem Cd Cap*) 120 mg PO DAILY [facility] Last Admin: 02/16/17 08:04 Dose: 120 mg Dimethyl Fumarate (Tecfidera(Nf)) 240 mg PO 0900,2100 [facility] Last Admin: 02/17/17 15:37 Dose: 240 mg Diphenhydramine HCl (Benadryl Po*) 25 mg PO Q6H PRN PRN Reason: itching Docusate Sodium (Colace Cap*) 100 mg PO BID PRN PRN Reason: CONSTIPATION Last Admin: 02/09/17 22:49 Dose: 100 mg Ferrous Sulfate (Ferrous Sulfate Tab*) 325 mg PO BID [facility] Last Admin: 02/17/17 15:11 Dose: Not Given Gabapentin (Neurontin Cap(*)) 300 mg PO BEDTIME [facility] Last Admin: 02/16/17 20:13 Dose: 300 mg Heparin Sodium (Porcine) (Heparin Vial(*)) 5,000 units SUBCUT BID [facility] Stop: 02/20/17 21:01 Lactated Ringer's (Lactated Ringers 1000 Ml Bag*) 1,000 mls @ 125 mls/hr IV PER RATE [facility] Last Admin: 02/17/17 06:55 Dose: 125 mls/hr Cefazolin Sodium 1 gm/ Sodium (Chloride) 50 mls @ 100 mls/hr IVPB Q8H [facility] Stop: 02/18/17 08:29 Last Admin: 02/17/17 16:18 Dose: 100 mls/hr Levothyroxine Sodium (Synthroid Tab*) 112 mcg PO DAILY@06 [facility] Last Admin: 02/17/17 05:37 Dose: Not Given Levothyroxine Sodium (Synthroid Tab*) 25 mcg PO DAILY@06 [facility] Last Admin: 02/17/17 05:37 Dose: Not Given Magnesium Hydroxide (Milk Of Magnesia Liq*) 30 ml PO BID PRN PRN Reason: CONSTIPATION Magnesium Oxide (Magox 400 Tab*) 800 mg PO DAILY@09 [facility] Last Admin: 02/17/17 15:36 Dose: 800 mg Metoprolol Tartrate (Lopressor Tab*) 12.5 mg PO Q12HR [facility] Last Admin: 02/17/17 15:11 Dose: Not Given Ondansetron HCl (Zofran Inj*) 4 mg IV Q6H PRN PRN Reason: nausea Oxycodone HCl (Roxycodone Tab*) 5 mg PO Q4H PRN PRN Reason: PAIN Last Admin: 02/11/17 20:30 Dose: 5 mg Oxycodone/Acetaminophen (Percocet 5/325 Tab*) 1 tab PO Q4H PRN PRN Reason: PAIN - MILD Oxycodone/Acetaminophen (Percocet 5/325 Tab*) 2 tab PO Q4H PRN PRN Reason: PAIN - MODERATE Polyethylene Glycol/Electrolytes (Miralax*) 17 gm PO DAILY PRN PRN Reason: CONSTIPATION Last Admin: 02/10/17 11:04 Dose: 17 gm Sertraline HCl (Zoloft*) 100 mg PO DAILY@09 [facility] Last Admin: 02/17/17 15:36 Dose: 100 mg Vital Signs - 8 hr 02/17/17 02/17/17 02/17/17 13:05 13:10 13:15 Temperature 97.9 F Pulse Rate 92 117 115 Respiratory 14 12 13 Rate Blood Pressure 121/72 116/78 121/72 (mmHg) O2 Sat by Pulse 95 91 94 Oximetry 02/17/17 02/17/17 02/17/17 13:20 13:30 13:45 Temperature Pulse Rate 117 114 117 Respiratory 11 12 19 Rate Blood Pressure 111/75 118/71 116/80 (mmHg) O2 Sat by Pulse 95 95 98 Oximetry 02/17/17 02/17/17 02/17/17 14:00 14:16 14:18 Temperature 97.3 F 97.3 F Pulse Rate 112 106 106 Respiratory 18 16 16 Rate Blood Pressure 113/73 108/86 108/86 (mmHg) O2 Sat by Pulse 99 92 87 Oximetry 02/17/17 02/17/17 02/17/17 14:33 14:52 15:27 Temperature 97.5 F Pulse Rate 120 Respiratory 16 16 16 Rate Blood Pressure 121/74 (mmHg) O2 Sat by Pulse 97 Oximetry 02/17/17 16:00 Temperature Pulse Rate Respiratory Rate Blood Pressure (mmHg) O2 Sat by Pulse 97 Oximetry Oxygen Devices in Use Now: Nasal Cannula - at 2l Appearance: 71 yo f in nAD, aAOx3 Eyes: No Scleral Icterus, PERRLA Ears/Nose/Mouth/Throat: NL Teeth, Lips, Gums, Mucous Membranes Moist Neck: NL Appearance and Movements; NL JVP, Trachea Midline Respiratory: Symmetrical Chest Expansion and Respiratory Effort, Clear to Auscultation Cardiovascular: - - irregular Abdominal: NL Sounds; No Tenderness; No Distention, No Hepatosplenomegaly Lymphatic: No Cervical Adenopathy Extremities: No Clubbing, Cyanosis, - - mild b/l pedal edema , r post op knee in cryo unit Skin: No Nodules or Sclerosis Neurological: Alert and Oriented x 3, - - unable to raise b/l LE's off bed Result Diagrams: 02/17/17 13:15 02/15/17 06:31 Microbiology and Other Data: Microbiology 02/03/17 18:15 Stool Occult Blood (DWAINE) - Final Stool Assess/Plan/Problems-Billing Ms. 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 fib (not anticoagulated), b/l ankle ORIF, R knee replacement who is basically WC bound was noted to have UTI and increased weakness with falls, directly admitted form Dr. Ren's office. - Patient Problems (1) Dislocation of knee, posterior, right, closed Comment: S/p TKA revision on 02/18/16, doing well. Pain is controlled. (2) Generalized weakness Comment: Weakness and inability to ambulate initially felt to be secondary to ESBL klebsiella and pseudomonas UTI in setting of chronic simmons, present on admission. She has completed 7 days of cipro. (3) Atrial fibrillation Comment: HR is under good control on diltiazem CD 120mg daily and metoprolol tartrate 12.5mg BID. lovenox held periop (4) Microcytic anemia Comment: H/H stable now. Continue to monitor intermittently. (5) Hyponatremia Comment: Na finally normalized. Hold HCTZ indefinitely. (6) Hypothyroid Comment: TSH in appropriate range. Continue current dose of synthroid. (7) Multiple sclerosis Comment: Continue Tecfidera and baclofen. (8) Hypertension Comment: BP under fair control. Continue cardizem and metoprolol. (9) Decubital ulcer Comment: Continue barrier cream and pressure relieving measures. resolved (10) Neurogenic bladder Comment: Pt has chronic simmons. Simmons exchanged earlier this hospitalization. (11) DVT prophylaxis Comment: SCD's Status and Disposition: inpatient
[2017-02-17] MEDS: Baclofen TAB* 10 MG PO SCH (20:11)
[2017-02-17] MEDS: Gabapentin CAP(*) 300 MG PO SCH (20:11)
[2017-02-17] MEDS: Diltiazem CD CAP* 120 MG PO SCH (21:13)
--- NOTE | 2017-02-18 01:13 | OP ---
DATE OF OPERATION: 02/17/17 - ROOM #348 DATE OF : 43 SURGEON: Ceasar Thomson MD AUTOMOBILE TECHNICIAN: Carolina Bennett RPA and MARIN Duffy ANESTHESIOLOGIST: Tamika Mendez MD ANESTHESIA: Regional and general. PRE-OP DIAGNOSIS: Unstable right total knee arthroplasty. POST-OP DIAGNOSIS: Unstable right total knee arthroplasty. OPERATIVE PROCEDURE: Revision right total knee arthroplasty. ESTIMATED BLOOD LOSS: 250 cc. COMPLICATIONS: None. HARDWARE: Noiles hinged knee with a medium femoral body and a 14 x 150 splined stem cemented only distally, 12 mm polyethylene. SUMMARY: Ms. Enriquez is a 71-year-old female who had undergone a right total knee arthroplasty with Dr. Nair in 2008 that was found to be infected postoperatively, and she had one revision several months later in [place] and another one in 2012 in [place]. Unfortunately, she reports the revision she had done in [place] never was quite right and she has always had some troubles with weightbearing. She also had troubles because of her MS and until late last year she had not sought particular treatment for the knee. She see Dr. Thorpe in [place] at that time, who had recommended an amputation, as he thought a revision would probably not work. She was continuing to seek a second opinion, but ended up being admitted on February 04 from the neurologist office because of weakness and a UTI. As part of the rehab program, PT was ordered and they refused to weight bear her because of how the right knee looked. X- rays found a dislocated right total knee arthroplasty. It took two days to get the new polyethylenes in and I discussed with her that a polyethylene exchange would hopefully at least give her some stability. At the time of the polyethylene exchange, the polyethylene was spun out and was facing posterior. We had done an exchange and she was found to be unstable with the knee in flexion, internal rotation, and valgus. She was to avoid that position, but with getting up, her knee naturally bent inwards. Last Wednesday, there was a very specific pop with the knee and she again had the deformity. That was in the evening/late afternoon and the next morning I was able to easily relocate the knee in the bed, but I discussed with her that clearly if the knee would continue to do this that we were need to change this to a constrained knee/ hinged knee replacement. After discussing this and discussing it with her sister, she had wished to proceed. Risks of surgery such as infection, scar formation, stiffness, hardware failure and the need for further revision was discussed and she had wished to proceed. DESCRIPTION OF PROCEDURE: The patient was eventually brought to the OR and a femoral nerve block was placed. General anesthesia was then established. Right leg was prepped and then draped. [place] were removed and wound was opened right along the old incision line. Hematoma was evacuated. Sutures over the parapatellar arthrotomy were also released and more hematoma was evacuated. It could be seen that just with traction and a little anterior force on the proximal tibia, I had fully relocated her and her polyethylene had not spun out. It could be seen now how with valgus the post would disengage from the notch and could then ride posteriorly. Polyethylene was easily removed. A trial 10 mm polyethylene was then placed to protect the platform of the tibia. Attention was turned to the femur. Using osteotomes, the cement mantle about the edge of the femoral component was attacked and chipped away. This was done until I could see inwards to the metal box of the notch and the Gigly saw was then run down along the top side as well. Posterior condyles also been exposed and the cement chipped away. Few impacts were tried first and then the distractor was applied and the femur initially did not move much. After few more strikes; however, it did seem to slowly slide up. Further osteotome work was done to breakup more cement and then with the extractor, I was able to finally extract the femoral component and the stem. I had left cement behind and there was no bone loss with this. Small osteotome was then used to slowly chip away cement until I had gotten quite a bit of the cement, about half, chipped away. Then using a tap, I was able to put the tap into the recess where the stem had been and I was able to pull out the remainder of the cement in one piece. Cement restrictor was left behind as I could feel the soft rubber of it. Initially, I tried to drill and then push one of the back scratchers through, but instead of pushing through it just ended pushing it more down the canal. This was eventually just left. Back scratchers were used to clean some of the granulation tissue present in the canal. Wound was continuously pulse lavaged through the case and over 10 L of normal saline would be used through the case. Hand reamers were then run and the diaphysis was approximately 13 mm in size where I engaged and this was done by hand with a 14. Unfortunately, the distal femoral sleeve was much smaller than the bone loss that she had already. In order to seat the sleeve, this was then quite countersunk and I would have needed to resect an additional 4 cm of bone from the distal femur. Considering that I had this bone and it appeared to be in good condition, I thought going with the cement distally and using the splines at the mid portion of the femur would work better, so that we would keep our alignment and not lose additional bone. Trial was constructed and with that she seemed to come out nicely into full extension, flexed nicely, and did not have lift off of the polyethylene and this was with and without the axle being placed for the constrained knee. Parts were called for and the augments were assembled where a 10 mm augment medially, so that would fit directly on the bone and then 15 mm laterally so that would almost fit on the bone were assembled and cemented, and that cement was allowed to hardened. Additional tobramycin cement was then used and additional two bags and this was mixed together and allowed to mildly solidify as I wanted this in the distal area where the bone loss had occurred, but not down by the splines, so that if there was any additional troubles, the revision would not be as difficult to remove the hardware. Femoral component was then impacted into place and excess cement was removed. Care was taken to try and not get cement into the axle recess, but a little bit getting in that that would later have to be removed. Cement was allowed to harden. Trial was placed and she came out nicely into full extension, flexed well and had wonderful stability throughout. Polyethylene was then dropped into place and the axle was then slid in. This was then locked into place and she was again taken through a range of motion with the same wonderful motion and stability. Knee was again pulse lavaged. Parapatellar arthrotomy was repaired using interrupted #1 Vicryl sutures. Knee was again pulse lavaged and the joint itself was injected with a mixture of 0.5 % Marcaine mixed with 1% lidocaine with epinephrine. Subcutaneous tissue was reapproximated using 2-0 Vicryl. Skin was closed using shine. Sterile dressing was applied in the OR. The patient was then awakened, stable on transfer to the recovery room where the Cryo/Cuff will be applied. [id number] #: [id number] MTDD
[2017-02-18] MEDS: Levothyroxine TAB* 112 MCG TAB PO SCH (05:22)
[2017-02-18] MEDS: Levothyroxine TAB* 25 MCG TAB PO SCH (05:22)
[2017-02-18 06:04] LABS: Hematocrit 25 % (35-47); Hemoglobin 7.9 g/dl (12.0-16.0); Mean Corpuscular HGB Conc 32 g/dl (31-36); Mean Corpuscular Hemoglobin 24 pg (27-31); Mean Platelet Volume 7 um3 (7.4-10.4); Platelet Count 295 10^3/ul (150-450); Red Blood Count 3.29 10^6/ul (4.0-5.4); Red Cell Distribution Width 24 % (10.5-15); White Blood Count 10.8 10^3/ul (3.5-10.8)
[2017-02-18 06:05] LABS: Mean Corpuscular Volume 75 fL (80-97)
[2017-02-18] MEDS: NS 0.9% 50 ML* 50 ML with ceFAZolin 1 GM ADVAN(*) 1 GM IVPB SCH ×2 (07:55)
[2017-02-18] MEDS: Magnesium Oxide TAB* 400 MG PO SCH (09:50)
[2017-02-18] MEDS: Sertraline* 100 MG TAB PO SCH (09:50)
[2017-02-18] MEDS: Cyanocobalamin TAB* 500 MCG PO SCH (09:50)
[2017-02-18] MEDS: Diltiazem CD CAP* 120 MG PO SCH (09:50)
[2017-02-18] MEDS: Ascorbic Acid TAB* 500 MG PO SCH (09:50)
[2017-02-18] MEDS: Metoprolol Tartrate TAB* 25 MG PO SCH ×2 (09:51→21:59)
[2017-02-18] MEDS: Ferrous Sulfate TAB* 325 MG PO SCH ×2 (09:51→21:55)
[2017-02-18] MEDS: PTO:Dimethyl Fumarate(NF) 240 MG CAP PO SCH ×2 (09:51→21:56)
[2017-02-18] MEDS: Heparin VIAL(*) 5000 UNITS/ML VIAL (FIVE THOUSAND) SUBCUT SCH ×2 (09:52→22:01)
--- NOTE | 2017-02-18 11:12 | PN ---
Progress Note - Progress Note Date of Service: 02/18/17 SOAP: Subjective: []Patient seen at bedside. She feels very tired and dizzy. She denies CP, SOB, nausea. Objective: []General: Appears pale and fatigued. Calm, cooperative, in no acute distress LLE: dressing CDI. DF/ PF intact. 2+ DP. Sensation intact distally. BL LE: calves supple and nontender without erythema or edema. Vital Signs Temp 97.4 F 02/18/17 11:02 Pulse 113 02/18/17 11:49 Resp 16 02/18/17 11:02 BP 84/45 02/18/17 11:49 Pulse Ox 93 02/18/17 11:49 Intake & Output 02/17/17 02/18/17 02/18/17 18:59 06:59 18:59 Intake Total 2600 1060 1199 Output Total 900 675 300 Balance 1700 385 899 Intake: IV Fluids 2600 879 LR 2600 879 Oral 1060 320 Output: Urine 325 Garcia 650 350 300 Estimated Blood Loss 250 Other: # Bowel Movements 0 Estimated Blood Loss 250-400 Comment Laboratory Last Values WBC 10.8 10^3/ul (3.5-10.8) 02/18/17 05:36 RBC 3.29 10^6/ul (4.0-5.4) L 02/18/17 05:36 Hgb 7.9 g/dl (12.0-16.0) L 02/18/17 05:36 Hct 25 % (35-47) L 02/18/17 05:36 MCV 75 fL (80-97) L 02/18/17 05:36 MCH 24 pg (27-31) L 02/18/17 05:36 MCHC 32 g/dl (31-36) 02/18/17 05:36 RDW 24 % (10.5-15) H 02/18/17 05:36 Plt Count 295 10^3/ul (150-450) 02/18/17 05:36 MPV 7 um3 (7.4-10.4) L 02/18/17 05:36 Neut % (Auto) 56.7 % (38-83) 02/17/17 06:24 Lymph % (Auto) 25.8 % (25-47) 02/17/17 06:24 [place] % (Auto) 12.6 % (1-9) H 02/17/17 06:24 Eos % (Auto) 3.9 % (0-6) 02/17/17 06:24 Baso % (Auto) 1.0 % (0-2) 02/17/17 06:24 Absolute Neuts (auto) 3.3 10^3/ul (1.5-7.7) 02/17/17 06:24 Absolute Lymphs (auto) 1.5 10^3/ul (1.0-4.8) 02/17/17 06:24 Absolute Monos (auto) 0.7 10^3/ul (0-0.8) 02/17/17 06:24 Absolute Eos (auto) 0.2 10^3/ul (0-0.6) 02/17/17 06:24 Absolute Basos (auto) 0.1 10^3/ul (0-0.2) 02/17/17 06:24 Absolute Nucleated RBC 0 10^3/ul 02/17/17 06:24 Nucleated RBC % 0 02/17/17 06:24 INR (Anticoag Therapy) 0.97 (0.77-1.02) 02/07/17 12:21 APTT 38.9 seconds (26.0-36.3) H 02/07/17 12:21 Sodium 132 mmol/L (133-145) L 02/18/17 05:36 Potassium 4.4 mmol/L (3.5-5.0) 02/18/17 05:36 Chloride 99 mmol/L (101-111) L 02/18/17 05:36 Carbon Dioxide 27 mmol/L (22-32) 02/18/17 05:36 Anion Gap 6 mmol/L (2-11) 02/18/17 05:36 BUN 12 mg/dL (6-24) 02/18/17 05:36 Creatinine 0.45 mg/dL (0.51-0.95) L 02/18/17 05:36 Est GFR ( Amer) 176.1 (>60) 02/18/17 05:36 Est GFR (Non-Af Amer) 137.0 (>60) 02/18/17 05:36 BUN/Creatinine Ratio 26.7 (8-20) H 02/18/17 05:36 Glucose 106 mg/dL (70-100) H 02/18/17 05:36 Calcium 8.5 mg/dL (8.6-10.3) L 02/18/17 05:36 Magnesium 2.0 mg/dL (1.9-2.7) 02/07/17 05:11 Iron < 15 ug/dL (50-212) L 02/05/17 06:25 TIBC 384 mcg/dL (250-450) 02/05/17 06:25 % Saturation 4 % (15-55) L 02/05/17 06:25 Unsat Iron Binding 369.74151 ug/dL 02/05/17 06:25 Ferritin 121.2 ng/mL (11-307) 02/10/17 05:50 Total Bilirubin 0.60 mg/dL (0.2-1.0) 02/03/17 15:51 AST 27 U/L (13-39) 02/03/17 15:51 ALT 14 U/L (7-52) 02/03/17 15:51 Alkaline Phosphatase 162 U/L (34-104) H 02/03/17 15:51 Troponin I 0.01 ng/mL (<0.04) 02/03/17 15:51 Total Protein 7.1 g/dL (6.4-8.9) 02/03/17 15:51 Albumin 3.8 g/dL (3.2-5.2) 02/03/17 15:51 Globulin 3.3 g/dL (2-4) 02/03/17 15:51 Albumin/Globulin Ratio 1.2 (1-3) 02/03/17 15:51 Urine Color Yellow 02/03/17 15:30 Urine Appearance Cloudy 02/03/17 15:30 Urine pH 5.0 (5-9) 02/03/17 15:30 Ur Specific [place] 1.011 (1.010-1.030) 02/03/17 15:30 Urine Protein Negative (Negative) 02/03/17 15:30 Urine Ketones 1+ (Negative) H 02/03/17 15:30 Urine Blood Negative (Negative) 02/03/17 15:30 Urine Nitrate Positive (Negative) H 02/03/17 15:30 Urine Bilirubin Negative (Negative) 02/03/17 15:30 Urine Urobilinogen Negative (Negative) 02/03/17 15:30 Ur Leukocyte Esterase 2+ (Negative) H 02/03/17 15:30 Urine WBC (Auto) 2+(11-20/hpf) (Absent) H 02/03/17 15:30 Urine RBC (Auto) Trace(0-2/hpf) (Absent) 02/03/17 15:30 Ur Squamous Epith Cells Present (Absent) H 02/03/17 15:30 Urine Bacteria 1+ (Absent) H 02/03/17 15:30 Urine Glucose Negative (Negative) 02/03/17 15:30 Urine Ascorbic Acid * (Negative) H 02/03/17 15:30 Blood Type B Positive 02/18/17 05:36 Antibody Screen Positive 02/05/17 06:22 Antibody Identification Anti-K 02/05/17 06:22 Direct Antiglob Test Negative 02/05/17 06:22 Crossmatch See Detail 02/18/17 05:36 Assessment: []POD 1 s/p RTK revision, Dr Thomson Plan: []Bolus 500 ml LR, 2 units PRBC ordered by Dr Thomson as well WBAT Desires tylenol for pain control with no narcotics. Agrees to muscle relaxant use as well.
--- NOTE | 2017-02-18 13:52 | PN ---
Subjective Date of Service: 02/18/17 Interval History: Pt felt weak and got hypotensive after a dose of Percocet that AM.Responded to IVF bolus. No other complaints Family History: Unchanged from Admission Social History: Unchanged from Admission Past Medical History: Unchanged from Admission Objective Active Medications: Acetaminophen (Tylenol Tab*) 650 mg PO Q4H PRN PRN Reason: FEVER/PAIN Last Admin: 02/15/17 11:41 Dose: 650 mg Acetaminophen (Tylenol Tab*) 650 mg PO ONCE PRN PRN Reason: PAIN - MILD Ascorbic Acid (Vitamin C Tab*) 500 mg PO DAILY@0900 [facility] Last Admin: 02/18/17 09:50 Dose: 500 mg Baclofen (Lioresal Tab*) 10 mg PO BEDTIME [facility] Last Admin: 02/17/17 20:11 Dose: 10 mg Cyanocobalamin (Vitamin B12 Tab*) 500 mcg PO DAILY@0900 [facility] Last Admin: 02/18/17 09:50 Dose: 500 mcg Diltiazem HCl (Cardizem Cd Cap*) 120 mg PO DAILY [facility] Last Admin: 02/18/17 09:50 Dose: 120 mg Dimethyl Fumarate (Tecfidera(Nf)) 240 mg PO 0900,2100 [facility] Last Admin: 02/18/17 09:51 Dose: 240 mg Diphenhydramine HCl (Benadryl Po*) 25 mg PO Q6H PRN PRN Reason: itching Docusate Sodium (Colace Cap*) 100 mg PO BID PRN PRN Reason: CONSTIPATION Last Admin: 02/09/17 22:49 Dose: 100 mg Ferrous Sulfate (Ferrous Sulfate Tab*) 325 mg PO BID [facility] Last Admin: 02/18/17 09:51 Dose: 325 mg Gabapentin (Neurontin Cap(*)) 300 mg PO BEDTIME [facility] Last Admin: 02/17/17 20:11 Dose: 300 mg Heparin Sodium (Porcine) (Heparin Vial(*)) 5,000 units SUBCUT BID [facility] Stop: 02/20/17 21:01 Last Admin: 02/18/17 09:52 Dose: 5,000 units Levothyroxine Sodium (Synthroid Tab*) 112 mcg PO DAILY@0600 [facility] Last Admin: 02/18/17 05:22 Dose: 112 mcg Levothyroxine Sodium (Synthroid Tab*) 25 mcg PO DAILY@0600 [facility] Last Admin: 02/18/17 05:22 Dose: 25 mcg Magnesium Hydroxide (Milk Of Magnesia Liq*) 30 ml PO BID PRN PRN Reason: CONSTIPATION Magnesium Oxide (Magox 400 Tab*) 800 mg PO DAILY@0900 [facility] Last Admin: 02/18/17 09:50 Dose: 800 mg Metoprolol Tartrate (Lopressor Tab*) 12.5 mg PO Q12HR [facility] Last Admin: 02/18/17 09:51 Dose: 12.5 mg Ondansetron HCl (Zofran Inj*) 4 mg IV Q6H PRN PRN Reason: nausea Oxycodone/Acetaminophen (Percocet 5/325 Tab*) 1 tab PO Q4H PRN PRN Reason: PAIN - MILD Oxycodone/Acetaminophen (Percocet 5/325 Tab*) 2 tab PO Q4H PRN PRN Reason: PAIN - MODERATE Last Admin: 02/18/17 07:54 Dose: 2 tab Polyethylene Glycol/Electrolytes (Miralax*) 17 gm PO DAILY PRN PRN Reason: CONSTIPATION Last Admin: 02/10/17 11:04 Dose: 17 gm Sertraline HCl (Zoloft*) 100 mg PO DAILY@0900 [facility] Last Admin: 02/18/17 09:50 Dose: 100 mg Vital Signs - 8 hr 02/18/17 02/18/17 02/18/17 07:13 07:54 10:38 Temperature 98.6 F Pulse Rate 115 Respiratory 16 20 20 Rate Blood Pressure 129/77 (mmHg) O2 Sat by Pulse 94 Oximetry 02/18/17 02/18/17 02/18/17 11:02 11:08 11:49 Temperature 97.4 F Pulse Rate 96 111 113 Respiratory 16 Rate Blood Pressure 82/53 73/44 84/45 (mmHg) O2 Sat by Pulse 92 92 93 Oximetry Oxygen Devices in Use Now: None Appearance: 71 yo f in nAD, aAOx3 Eyes: No Scleral Icterus, PERRLA Ears/Nose/Mouth/Throat: NL Teeth, Lips, Gums, Mucous Membranes Moist Neck: NL Appearance and Movements; NL JVP, Trachea Midline Respiratory: Symmetrical Chest Expansion and Respiratory Effort, Clear to Auscultation Cardiovascular: NL Sounds; No Murmurs; No JVD, - - irregular Abdominal: NL Sounds; No Tenderness; No Distention, No Hepatosplenomegaly Lymphatic: No Cervical Adenopathy Extremities: No Clubbing, Cyanosis, - - trace b.l lowwr leg edema Skin: No Nodules or Sclerosis, - - brown discoloration of b/l feet-chronic Neurological: Alert and Oriented x 3, - - unable to raise b/l legs off bed. R knee in cryo unit and post op dressings Result Diagrams: 02/18/17 05:36 02/18/17 05:36 Microbiology and Other Data: Microbiology 02/03/17 18:15 Stool Occult Blood (DWAINE) - Final Stool Assess/Plan/Problems-Billing Ms. 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 fib (not anticoagulated), b/l ankle ORIF, R knee replacement who is basically WC bound was noted to have UTI and increased weakness with falls, directly admitted form Dr. Ren's office. - Patient Problems (1) Dislocation of knee, posterior, right, closed Comment: S/p TKA revision on 02/18/16, doing well. Pain is controlled. (2) Generalized weakness Comment: Weakness and inability to ambulate initially felt to be secondary to ESBL klebsiella and pseudomonas UTI in setting of chronic smimons, present on admission. She has completed 7 days of cipro. (3) Atrial fibrillation Comment: HR is under good control on diltiazem CD 120mg daily and metoprolol tartrate 12.5mg BID. lovenox held periop (4) Microcytic anemia Comment: H/H lower post op, due to acute intra op blood loss and hemodilution. Continue to monitor intermittently. (5) Hyponatremia Comment: Na finally normalized. Hold HCTZ indefinitely. (6) Hypothyroid Comment: TSH in appropriate range. Continue current dose of synthroid. (7) Multiple sclerosis Comment: Continue Tecfidera and baclofen. (8) Hypertension Comment: BP under fair control. Continue cardizem and metoprolol. (9) Decubital ulcer Comment: Continue barrier cream and pressure relieving measures. resolved (10) Neurogenic bladder Comment: Pt has chronic simmons. Simmons exchanged earlier this hospitalization. (11) DVT prophylaxis Comment: SCD's, will need to restart anticoagulation once Hb stable for now on HSQ Status and Disposition: inpatient
[2017-02-18] MEDS ORDERED: Cyclobenzaprine TAB* 10 MG PO PRN (14:50)
[2017-02-18] MEDS: Gabapentin CAP(*) 300 MG PO SCH (21:54)
[2017-02-18] MEDS: Baclofen TAB* 10 MG PO SCH (21:55)
[2017-02-18] MEDS: Acetaminophen TAB* 325 MG PO PRN (22:41)
[2017-02-19] MEDS: Levothyroxine TAB* 25 MCG TAB PO SCH (06:05)
[2017-02-19] MEDS: Levothyroxine TAB* 112 MCG TAB PO SCH (06:05)
[2017-02-19 06:31] LABS: ABS Basophils 0.1 10^3/ul (0-0.2); ABS Eosinophils 0.2 10^3/ul (0-0.6); ABS Lymphocytes 1.5 10^3/ul (1.0-4.8); ABS Neutrophils 8.7 10^3/ul (1.5-7.7); ABS Nucleated RBC 0 10^3/ul; Eosinophil % 2.1 % (0-6); Hematocrit 29 % (35-47); Hemoglobin 9.5 g/dl (12.0-16.0); Lymphocyte % 13.1 % (25-47); Mean Corpuscular HGB Conc 33 g/dl (31-36); Mean Corpuscular Hemoglobin 25 pg (27-31); Mean Corpuscular Volume 77 fL (80-97); Mean Platelet Volume 7 um3 (7.4-10.4); Nucleated Red Blood Cells % 0; Platelet Count 273 10^3/ul (150-450); Red Blood Count 3.77 10^6/ul (4.0-5.4); Red Cell Distribution Width 22 % (10.5-15); White Blood Count 11.5 10^3/ul (3.5-10.8)
--- NOTE | 2017-02-19 09:40 | PN ---
Progress Note - Progress Note Date of Service: 02/19/17 SOAP: Subjective: [Pt was seen today sitting up in bed. Pt states that she has been sleeping quite well. Very adamant about breakfast this am. Denies any chest pain, SOB, n/ v/or fevers. States pain is well controlled with medication. No other complaints. ] Objective: [General: Pt is awake, alert, and oriented x 3. MSK: RLE: dressing c/d/i. Changed today. Mild amount of dried bloody discharge on the 4x4s. No discharge from the wound currently. Incision is c/d/i. Central are in place. Pt is able to df/pf. 2+ dp. ] Vital Signs Temp 98.3 F 02/19/17 07:59 Pulse 97 02/19/17 07:59 Resp 16 02/19/17 07:59 BP 130/61 02/19/17 07:59 Pulse Ox 94 02/19/17 07:59 Intake & Output 02/18/17 02/19/17 02/19/17 18:59 06:59 18:59 Intake Total 1559 1350 Output Total 300 450 Balance 1259 900 Intake: IV Fluids 879 80 LR 879 NS (0.9%) 80 Oral 680 640 Packed Cells 630 Output: Garcia 300 450 Other: # Bowel Movements 0 Assessment: [POD 2 RTK revision. ] Plan: [Continue current anticoagulation Continue current pain regiment. Dressing changed today, 4x4s and EDGAR wrap placed over the wound today. Continue current care per hospitalists. ]
[2017-02-19] MEDS: PTO:Dimethyl Fumarate(NF) 240 MG CAP PO SCH ×2 (09:52→20:29)
[2017-02-19] MEDS: Ascorbic Acid TAB* 500 MG PO SCH (09:53)
[2017-02-19] MEDS: Diltiazem CD CAP* 120 MG PO SCH (09:53)
[2017-02-19] MEDS: Acetaminophen TAB* 325 MG PO PRN ×3 (09:53→20:25)
[2017-02-19] MEDS: Magnesium Oxide TAB* 400 MG PO SCH (09:53)
[2017-02-19] MEDS: Ferrous Sulfate TAB* 325 MG PO SCH ×2 (09:53→20:24)
[2017-02-19] MEDS: Metoprolol Tartrate TAB* 25 MG PO SCH ×2 (09:54→20:23)
[2017-02-19] MEDS: Sertraline* 100 MG TAB PO SCH (09:54)
[2017-02-19] MEDS: Cyanocobalamin TAB* 500 MCG PO SCH (09:54)
[2017-02-19] MEDS: Heparin VIAL(*) 5000 UNITS/ML VIAL (FIVE THOUSAND) SUBCUT SCH ×2 (09:56→20:31)
--- NOTE | 2017-02-19 10:02 | PN ---
Subjective Date of Service: 02/19/17 Interval History: Pt feels "much better "today. Family History: Unchanged from Admission Social History: Unchanged from Admission Past Medical History: Unchanged from Admission Objective Active Medications: Acetaminophen (Tylenol Tab*) 650 mg PO Q4H PRN PRN Reason: FEVER/PAIN Last Admin: 02/19/17 09:53 Dose: 650 mg Acetaminophen (Tylenol Tab*) 650 mg PO ONCE PRN PRN Reason: PAIN - MILD Ascorbic Acid (Vitamin C Tab*) 500 mg PO DAILY@0900 [facility] Last Admin: 02/19/17 09:53 Dose: 500 mg Baclofen (Lioresal Tab*) 10 mg PO BEDTIME [facility] Last Admin: 02/18/17 21:55 Dose: 10 mg Cyanocobalamin (Vitamin B12 Tab*) 500 mcg PO DAILY@0900 [facility] Last Admin: 02/19/17 09:54 Dose: 500 mcg Cyclobenzaprine HCl (Flexeril Tab*) 10 mg PO TID PRN PRN Reason: SPASMS Diltiazem HCl (Cardizem Cd Cap*) 120 mg PO DAILY [facility] Last Admin: 02/19/17 09:53 Dose: 120 mg Dimethyl Fumarate (Tecfidera(Nf)) 240 mg PO 0900,2100 [facility] Last Admin: 02/19/17 09:52 Dose: 240 mg Diphenhydramine HCl (Benadryl Po*) 25 mg PO Q6H PRN PRN Reason: itching Docusate Sodium (Colace Cap*) 100 mg PO BID PRN PRN Reason: CONSTIPATION Last Admin: 02/09/17 22:49 Dose: 100 mg Ferrous Sulfate (Ferrous Sulfate Tab*) 325 mg PO BID [facility] Last Admin: 02/19/17 09:53 Dose: 325 mg Gabapentin (Neurontin Cap(*)) 300 mg PO BEDTIME [facility] Last Admin: 02/18/17 21:54 Dose: 300 mg Heparin Sodium (Porcine) (Heparin Vial(*)) 5,000 units SUBCUT BID [facility] Stop: 02/20/17 21:01 Last Admin: 02/19/17 09:56 Dose: 5,000 units Levothyroxine Sodium (Synthroid Tab*) 112 mcg PO DAILY@0600 [facility] Last Admin: 02/19/17 06:05 Dose: 112 mcg Levothyroxine Sodium (Synthroid Tab*) 25 mcg PO DAILY@0600 [facility] Last Admin: 02/19/17 06:05 Dose: 25 mcg Magnesium Hydroxide (Milk Of Magnlouis Liq*) 30 ml PO BID PRN PRN Reason: CONSTIPATION Magnesium Oxide (Magox 400 Tab*) 800 mg PO DAILY@0900 [facility] Last Admin: 02/19/17 09:53 Dose: 800 mg Metoprolol Tartrate (Lopressor Tab*) 12.5 mg PO Q12HR [facility] Last Admin: 02/19/17 09:54 Dose: 12.5 mg Ondansetron HCl (Zofran Inj*) 4 mg IV Q6H PRN PRN Reason: nausea Oxycodone/Acetaminophen (Percocet 5/325 Tab*) 1 tab PO Q4H PRN PRN Reason: PAIN - MILD Oxycodone/Acetaminophen (Percocet 5/325 Tab*) 2 tab PO Q4H PRN PRN Reason: PAIN - MODERATE Last Admin: 02/18/17 07:54 Dose: 2 tab Polyethylene Glycol/Electrolytes (Miralax*) 17 gm PO DAILY PRN PRN Reason: CONSTIPATION Last Admin: 02/10/17 11:04 Dose: 17 gm Sertraline HCl (Zoloft*) 100 mg PO DAILY@09 [facility] Last Admin: 02/19/17 09:54 Dose: 100 mg Vital Signs - 8 hr 02/19/17 02/19/17 04:01 07:59 Temperature 98.4 F 98.3 F Pulse Rate 130 97 Respiratory 16 16 Rate Blood Pressure 112/63 130/61 (mmHg) O2 Sat by Pulse 93 94 Oximetry Oxygen Devices in Use Now: None Appearance: 71 yo f in NAD, AAOx3 Eyes: No Scleral Icterus, PERRLA Ears/Nose/Mouth/Throat: NL Teeth, Lips, Gums, Mucous Membranes Moist Neck: NL Appearance and Movements; NL JVP, Trachea Midline Respiratory: Symmetrical Chest Expansion and Respiratory Effort, - - crackles at b/l bases Cardiovascular: - - irregular Abdominal: NL Sounds; No Tenderness; No Distention, No Hepatosplenomegaly Lymphatic: No Cervical Adenopathy Extremities: No Clubbing, Cyanosis, - - trace pedela edema b/l Skin: No Nodules or Sclerosis, - - 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 fib (not anticoagulated), b/l ankle ORIF, R knee replacement who is basically WC bound was noted to have UTI and increased weakness with falls, directly admitted form Dr. Ren's office. - Patient Problems (1) Dislocation of knee, posterior, right, closed Comment: S/p TKA revision on 02/18/16, doing well. Pain is controlled. (2) Generalized weakness Comment: Weakness and inability to ambulate initially felt to be secondary to ESBL klebsiella and pseudomonas UTI in setting of chronic simmons, present on admission. She has completed 7 days of cipro. (3) Atrial fibrillation Comment: HR is under good control on diltiazem CD 120mg daily and metoprolol tartrate 12.5mg BID. (4) Microcytic anemia Comment: pt developed acute post op anemia, s/p 2 U PRBC transfusion on 02/18/17 , doing well. Hb normalized Continue to monitor intermittently. (5) Hyponatremia Comment: at baseline. Hold HCTZ indefinitely. (6) Hypothyroid Comment: TSH in appropriate range. Continue current dose of synthroid. (7) Multiple sclerosis Comment: Continue Tecfidera and baclofen. (8) Hypertension Comment: BP under fair control. Continue cardizem and metoprolol. (9) Decubital ulcer Comment: Continue barrier cream and pressure relieving measures. resolved (10) Neurogenic bladder Comment: Pt has chronic simmons. Simmons exchanged earlier this hospitalization. (11) DVT prophylaxis Comment: SCD's, will need to restart anticoagulation once Hb stable for now on HSQ Status and Disposition: inpatient
[2017-02-19] MEDS: Baclofen TAB* 10 MG PO SCH (20:24)
[2017-02-19] MEDS: Gabapentin CAP(*) 300 MG PO SCH (20:28)
[2017-02-20 07:01] LABS: EGFR Non-African American 195.9 (>60)
[2017-02-20 07:04] LABS: Hematocrit 27 % (35-47); Hemoglobin 8.9 g/dl (12.0-16.0); Mean Corpuscular HGB Conc 34 g/dl (31-36); Mean Corpuscular Hemoglobin 26 pg (27-31); Mean Corpuscular Volume 77 fL (80-97); Mean Platelet Volume 7 um3 (7.4-10.4); Platelet Count 273 10^3/ul (150-450); Red Blood Count 3.45 10^6/ul (4.0-5.4); Red Cell Distribution Width 23 % (10.5-15); White Blood Count 8.8 10^3/ul (3.5-10.8)
[2017-02-20] MEDS: Levothyroxine TAB* 112 MCG TAB PO SCH (07:38)
[2017-02-20] MEDS: Acetaminophen TAB* 325 MG PO PRN (07:38)
[2017-02-20] MEDS: Levothyroxine TAB* 25 MCG TAB PO SCH (07:40)
[2017-02-20] MEDS: PTO:Dimethyl Fumarate(NF) 240 MG CAP PO SCH (09:57)
[2017-02-20] MEDS: Metoprolol Tartrate TAB* 25 MG PO SCH (09:58)
[2017-02-20] MEDS: Sertraline* 100 MG TAB PO SCH (09:58)
[2017-02-20] MEDS: Ferrous Sulfate TAB* 325 MG PO SCH (09:58)
[2017-02-20] MEDS: Diltiazem CD CAP* 120 MG PO SCH (09:58)
[2017-02-20] MEDS: Cyanocobalamin TAB* 500 MCG PO SCH (09:58)
[2017-02-20] MEDS: Ascorbic Acid TAB* 500 MG PO SCH (09:58)
[2017-02-20] MEDS: Magnesium Oxide TAB* 400 MG PO SCH (09:58)
[2017-02-20] MEDS: Heparin VIAL(*) 5000 UNITS/ML VIAL (FIVE THOUSAND) SUBCUT SCH (10:00)
[2017-02-20 11:38] VITALS: BP 116/67
--- NOTE | 2017-02-20 22:30 | DS ---
CC: Dr. Thomson; Dr. Ren; Dr. Alma Brown * DISCHARGE SUMMARY: DATE OF ADMISSION: 02/03/17 DATE OF DISCHARGE: From acute care setting and transferred to a swing bed status, 02/20/17. Please also regarded as history and physical of this patient who is being discharged from acute hospitalization to swing bed status. DISCHARGE DIAGNOSES: 1. Generalized weakness due to multiple sclerosis exacerbation and extended- spectrum beta-lactamase Escherichia coli Garcia associated infection/urinary tract infection. 2. Right prosthetic knee subluxation, status post initial repair on 02/07/17, which involved open reduction and polyethylene exchange on the tibia that was performed by Dr. Thomson. The patient has subsequent dislocation of postoperative knee and had to go to the OR again with Dr. Thomson on 02/17/17 and this time, the patient had revision of right total knee arthroplasty with Noiles hinged knee placement. 3. Postoperative acute anemia development, status post a total of 3 units of packed red blood cells transfused throughout the patient's hospital stay. 4. Atrial fibrillation, rate controlled during the hospital stay of which although the patient was aware of in the past and she did not carry a diagnosis in the past. SECONDARY DIAGNOSES: 1. History of multiple sclerosis. 2. History of bilateral leg weakness due to multiple sclerosis. 3. Status post open reduction internal fixation of the left ankle in 2015. 4. History of hypothyroidism. 5. History of right ankle fracture, status post open reduction internal fixation in March 2015. 6. History of neurogenic bladder with Garcia catheter in place. 7. Gastroesophageal reflux disease. 8. Depression. 9. History of sacral decubitus ulcer, status post surgery and skin flap in 2012. 10. Status post thyroidectomy in 1980. MEDICATIONS: At transfer and admission to swing bed status include: 1. Acetaminophen on a p.r.n. basis. 2. Ascorbic acid 500 mg daily. 3. Baclofen 10 mg at bedtime. 4. Calcium carbonate 600 mg daily. 5. Vitamin D3 1000 units daily. 6. Vitamin B12 500 mcg daily. 7. Lexapro 10 mg 3 times a day p.r.n. 8. Cardizem CD 120 mg daily. 9. Dimethyl fumarate 240 mg b.i.d. 10. Benadryl on a p.r.n. basis. 11. Colace 100 mg b.i.d. 12. Ferrous sulfate 325 mg b.i.d. 13. Neurontin 300 mg at bedtime. 14. Levothyroxine 137 mcg at bedtime. 15. Milk of magnesia on p.r.n. basis. 16. Mag-Ox 800 mg daily. 17. Metoprolol tartrate 12.5 mg every 12 hours. 18. MiraLAX 17 g daily p.r.n. 19. Potassium chloride 10 mEq daily. 20. Zoloft 100 mg daily. 21. Simvastatin 20 mg daily. LABORATORY DATA AND STUDIES PERFORMED DURING THE HOSPITAL STAY: Include: On , white blood cell count was 8.8, hemoglobin was 8.9, hematocrit of 27, and platelets of 273. The patient's iron level was below 15, TIBC 384, percent iron saturation 4, ferritin 121. The patient's stool occult blood was negative on 02/03/17. On 02/20/17, sodium of 132, potassium 3.9, chloride 99, carbon dioxide 26, BUN 9, creatinine 0.33. ASSESSMENT AND PLAN: Mrs. Enriquez is a 71-year-old female with history of multiple sclerosis, who came in to Dr. Ren's office on 02/03/17 complaining of frequent falls and inability to walk. It was thought that the patient has MS exacerbation may be due to urinary tract infection which she had in the past. The patient was a direct admit from Dr. Ren's office. She was noted to be in persistent atrial fibrillation of which the patient was aware of but she did not have a past medical history of. Nevertheless, the atrial fibrillation was rate controlled with addition of Cardizem CD. We also discussed anticoagulation and she was intermittently throughout her hospital stay on full dose of Lovenox. Eventually , she is planning to start using Xarelto once she is medically clears to be fully anticoagulated. She was noted to have extended-spectrum beta-lactamase Escherichia coli urinary tract infection, Garcia associated. Garcia was exchanged at the beginning of her hospital stay and her infection was treated with 7 days of intravenous ciprofloxacin. She was noted to have markedly swollen right leg with distorted anatomy of the right knee. Further x-ray showed that the patient had dislocation of the prosthetic right knee. Dr. Thomson saw the patient in consultation and recommended taking the patient to the OR and liner exchanged as well as reduction of the dislocation that happened on 02/07/17. Postoperatively, the patient needed to be transfused one unit of packed red blood cells due to her microcytic anemia that is a combination of iron-deficiency anemia and anemia of chronic disease. The patient does not note to be bleeding and his stool was heme-negative. Postoperatively, she did rather well, but started ambulating with physical therapy and dislocated the postoperative knee again. At that point, she needed to be taken to the OR again and that happened on 02/17/[address] Thomson for a hinged knee prosthesis placement. Postoperatively, she had another bout of postoperative anemia and required 2 units of packed red blood cells transfusion. Please also note that her anticoagulation for cardioembolic prevention while in atrial fibrillation was once again stopped. Right now, she is day 3 postoperatively and she is doing fine, although she was just transfused blood 2 days ago and her counts are mildly lower. At that point , she is awaiting placement in short-term rehabilitation facility that is going to be happening in approximately 4 days. She will require daily CBCs, but otherwise she has no acute needs and she will be placed on swing bed status. Once her hemoglobin is stable, she should be placed on Xarelto. Please also note that during her hospital stay, there was a questionable of a Doppler that showed possibility of DVT in the right lower extremity, but that must have been due to anatomic distortion of the vein when the patient had the knee subluxated. Once the subluxation was reduced, the repeat Dopplers were negative for DVT. PHYSICAL EXAMINATION AT DISCHARGE: Blood pressure of 116/67, heart rate of 117 and regular, respiratory rate 18, oxygen saturation 97% on room air, temperature 98.8. General: The patient is a very pleasant 71-year-old female who is in no acute distress. Alert, awake, and oriented x3. HEENT: Head: Atraumatic, normocephalic. Eyes: Pupils are equal, reactive to light and accommodation. Oropharynx clear. Mucosa moist. Neck: Supple. No JVD, no bruit bilaterally. Cardiovascular: Irregularly irregular rhythm. No murmur. Respiratory: Clear to auscultation bilaterally. Abdomen: Soft, nontender. Bowel sounds present in all 4 quadrants. Extremities: There is trace bilateral ankle edema. Pulses +2 bilaterally. There is no clubbing or cyanosis. The right postoperative knee is stapled. There is no evidence of wound dehiscence. On evaluation of the skin, please also note that the patient has some hemosiderin deposits in bilateral distal lower extremities as well as venous stasis changes of the skin in bilateral lower extremities. Neurologically, the patient is unable to raise her legs off bed, but there is good range of motion in all the joints. The patient also has problems with decreased sensation and a patchy distribution in bilateral lower extremities. Please note that this is a short summary of the patient's hospital stay. Please refer to further medical records for details. TIME SPENT: Approximately 50 minutes were spent on the patient's discharge. [id number]/[facility] #: [id number] JANETH
== END 2017-02-20 13:03 | disposition swing bed (61) | DRG 467 ==
LOC: MED 14:17 → OBSVTOIN 14:17 → SSU 02-07 11:10
PROVIDERS: ADMIT Internal Medicine; ATTEND Internal Medicine
PROC: 0T2BX0Z Change Drainage Device in Bladder, External Approach (ICD-10-PCS; principal; 2017-02-03)
PROC: 0SPV0JZ Removal of Synthetic Substitute from Right Knee Joint, Tibial Surface, Open Approach (ICD-10-PCS; 2017-02-07)
PROC: 0SRV0JZ Replacement of Right Knee Joint, Tibial Surface with Synthetic Substitute, Open Approach (ICD-10-PCS; 2017-02-07)
PROC: 0SRT0J9 Replacement of Right Knee Joint, Femoral Surface with Synthetic Substitute, Cemented, Open Approach (ICD-10-PCS; 2017-02-17)
PROC: 0SPT0JZ Removal of Synthetic Substitute from Right Knee Joint, Femoral Surface, Open Approach (ICD-10-PCS; 2017-02-17)
PROC: 30233N1 Transfusion of Nonautologous Red Blood Cells into Peripheral Vein, Percutaneous Approach (ICD-10-PCS; 2017-02-18)
DX: T84.022A Instability of internal right knee prosthesis, initial encounter (principal); I47.2 Ventricular tachycardia; L89.152 Pressure ulcer of sacral region, stage 2; I82.401 Acute embolism and thrombosis of unspecified deep veins of right lower extremity; I95.9 Hypotension, unspecified; G35 Multiple sclerosis; I48.0 Paroxysmal atrial fibrillation; E87.1 Hypo-osmolality and hyponatremia; N39.0 Urinary tract infection, site not specified; T83.511A Infection and inflammatory reaction due to indwelling urethral catheter, initial encounter; I48.2 Chronic atrial fibrillation; I48.91 Unspecified atrial fibrillation; B96.5 Pseudomonas (aeruginosa) (mallei) (pseudomallei) as the cause of diseases classified elsewhere; N31.9 Neuromuscular dysfunction of bladder, unspecified; E78.5 Hyperlipidemia, unspecified; F32.9 Major depressive disorder, single episode, unspecified; Y73.1 Therapeutic (nonsurgical) and rehabilitative gastroenterology and urology devices associated with adverse incidents; E89.0 Postprocedural hypothyroidism; D50.9 Iron deficiency anemia, unspecified; R60.0 Localized edema; I10 Essential (primary) hypertension; Y79.2 Prosthetic and other implants, materials and accessory orthopedic devices associated with adverse incidents; B96.1 Klebsiella pneumoniae [K. pneumoniae] as the cause of diseases classified elsewhere; K21.9 Gastro-esophageal reflux disease without esophagitis; B96.20 Unspecified Escherichia coli [E. coli] as the cause of diseases classified elsewhere; D63.8 Anemia in other chronic diseases classified elsewhere; Y92.9 Unspecified place or not applicable; Z91.81 History of falling; Z88.6 Allergy status to analgesic agent; Z82.3 Family history of stroke; Z82.0 Family history of epilepsy and other diseases of the nervous system; Z87.891 Personal history of nicotine dependence; Z99.3 Dependence on wheelchair
CPT/HCPCS: 36415; 80048; 80053; 81003; 81015; 82272; 82565; 82728; 83540; 83550; 83735; 84484; 84520; 85014; 85018; 85025; 85027; 85049; 85610; 85730; 86850; 86870; 86880; 86900; 86901; 86905; 86922; 87040; 87070; 87073; 87077; 87086; 87186; 87205; 88300; 93005; 93306; A9270-GY; C1776; G8978-GP-CN; G8979-GP-CJ; J0330; J0690; J0692; J0744; J1100; J1644; J1650; J2001; J2250; J2270; J2405; J2704; J3010; J3475; J3490; P9040

== ENCOUNTER 2017-02-20 12:52 | Inpatient (IN) | payer MEDICARE ==
[2017-02-20] MEDS ORDERED: Magnesium Hydroxide LIQ* 30 ML UDC PO PRN (13:19)
[2017-02-20] MEDS ORDERED: diPHENhydraMINE PO* 25 MG PO PRN (13:19)
[2017-02-20] MEDS ORDERED: Cyclobenzaprine TAB* 10 MG PO PRN (13:19)
[2017-02-20] MEDS ORDERED: Docusate CAP* 100 MG PO PRN (13:19)
[2017-02-20] MEDS ORDERED: Acetaminophen TAB* 325 MG ONE (13:33)
[2017-02-20] MEDS: Acetaminophen TAB* 325 MG PO PRN (13:34)
[2017-02-20] MEDS: Heparin VIAL(*) 5000 UNITS/ML VIAL (FIVE THOUSAND) SUBCUT SCH ×2 (15:05→21:02)
[2017-02-20] MEDS: Atorvastatin* 10 MG TAB PO SCH (17:06)
[2017-02-20] MEDS ORDERED: Levothyroxine TAB* 137 MCG TAB PO SCH (21:00)
[2017-02-20] MEDS: Ferrous Sulfate TAB* 325 MG PO SCH (21:01)
[2017-02-20] MEDS: Metoprolol Tartrate TAB* 25 MG PO SCH (21:01)
[2017-02-20] MEDS: Gabapentin CAP(*) 300 MG PO SCH (21:01)
[2017-02-20] MEDS: Baclofen TAB* 10 MG PO SCH (21:01)
[2017-02-20] MEDS: DIMETHYL FUMARATE 240 MG PO SCH (21:02)
[2017-02-21] MEDS: Heparin VIAL(*) 5000 UNITS/ML VIAL (FIVE THOUSAND) SUBCUT SCH ×3 (05:33→20:29)
[2017-02-21] MEDS: Levothyroxine TAB* 137 MCG TAB PO SCH (05:33)
[2017-02-21 05:48] LABS: ABS Basophils 0.1 10^3/ul (0-0.2); ABS Eosinophils 0.3 10^3/ul (0-0.6); ABS Lymphocytes 1.3 10^3/ul (1.0-4.8); ABS Monocytes 0.7 10^3/ul (0-0.8); ABS Neutrophils 5.6 10^3/ul (1.5-7.7); ABS Nucleated RBC 0 10^3/ul; Eosinophil % 3.7 % (0-6); Hematocrit 26 % (35-47); Hemoglobin 8.5 g/dl (12.0-16.0); Lymphocyte % 16.2 % (25-47); Mean Corpuscular HGB Conc 33 g/dl (31-36); Mean Corpuscular Hemoglobin 26 pg (27-31); Mean Corpuscular Volume 78 fL (80-97); Mean Platelet Volume 7 um3 (7.4-10.4); Nucleated Red Blood Cells % 0; Platelet Count 284 10^3/ul (150-450); Red Cell Distribution Width 23 % (10.5-15)
[2017-02-21] MEDS: DIMETHYL FUMARATE 240 MG PO SCH ×2 (08:42→19:53)
[2017-02-21] MEDS: Acetaminophen TAB* 325 MG PO PRN (08:43)
[2017-02-21] MEDS: Metoprolol Tartrate TAB* 25 MG PO SCH ×2 (08:44→19:53)
[2017-02-21] MEDS: Cyanocobalamin TAB* 500 MCG PO SCH (08:44)
[2017-02-21] MEDS: Ascorbic Acid TAB* 500 MG PO SCH (08:44)
[2017-02-21] MEDS: Ferrous Sulfate TAB* 325 MG PO SCH ×2 (08:44→19:53)
[2017-02-21] MEDS: Magnesium Oxide TAB* 400 MG PO SCH (08:44)
[2017-02-21] MEDS: Potassium Chlor TAB* 10 MEQ TAB.ER PO SCH (08:44)
[2017-02-21] MEDS: Diltiazem CD CAP* 120 MG PO SCH (08:44)
[2017-02-21] MEDS: Sertraline* 100 MG TAB PO SCH (08:44)
[2017-02-21] MEDS ORDERED: Polyethylene Glycol 3350* 17 GM PACKET PO PRN (09:00)
--- NOTE | 2017-02-21 10:57 | PN ---
Progress Note - Progress Note Date of Service: 02/21/17 SOAP: Subjective: [Pt was seen today sitting up in chair. States that she is doing well. Pain well controlled. PT going well. Awaiting placement. Denies any chest pain, SOB. n/v] Objective: [MSK: R knee dressing is c/d/i. able to df/pf. 2+ dp nvi Vital Signs Temp 98.2 F 02/21/17 08:21 Pulse 76 02/21/17 08:21 Resp 16 02/21/17 00:28 BP 120/62 02/21/17 08:21 Pulse Ox 98 02/21/17 08:21 Intake & Output 02/20/17 02/21/17 02/21/17 18:59 06:59 18:59 Intake Total 450 150 360 Output Total 275 575 Balance 175 -425 360 Weight 200 lb Intake: Oral 450 150 360 Output: Urine 75 Garcia 275 500 ] Assessment: [S/P Poly exchange and revision of RTKA ] Plan: [Awaiting placement to rehab continue current anticoagulation continue current pain management continue PT/OT ]
[2017-02-21] MEDS: Atorvastatin* 10 MG TAB PO SCH (18:05)
[2017-02-21] MEDS: Baclofen TAB* 10 MG PO SCH (19:53)
[2017-02-21] MEDS: Gabapentin CAP(*) 300 MG PO SCH (19:53)
[2017-02-22] MEDS: Heparin VIAL(*) 5000 UNITS/ML VIAL (FIVE THOUSAND) SUBCUT SCH ×3 (06:01→21:21)
[2017-02-22] MEDS: Levothyroxine TAB* 137 MCG TAB PO SCH (06:01)
[2017-02-22 06:09] LABS: ABS Basophils 0.1 10^3/ul (0-0.2); ABS Eosinophils 0.2 10^3/ul (0-0.6); ABS Lymphocytes 1.6 10^3/ul (1.0-4.8); ABS Monocytes 0.8 10^3/ul (0-0.8); ABS Neutrophils 3.7 10^3/ul (1.5-7.7); ABS Nucleated RBC 0 10^3/ul; Eosinophil % 3.7 % (0-6); Hematocrit 26 % (35-47); Hemoglobin 8.7 g/dl (12.0-16.0); Lymphocyte % 25.2 % (25-47); Mean Corpuscular HGB Conc 33 g/dl (31-36); Mean Corpuscular Hemoglobin 26 pg (27-31); Mean Corpuscular Volume 78 fL (80-97); Mean Platelet Volume 7 um3 (7.4-10.4); Nucleated Red Blood Cells % 0.1; Platelet Count 291 10^3/ul (150-450); Red Cell Distribution Width 23 % (10.5-15); White Blood Count 6.3 10^3/ul (3.5-10.8)
[2017-02-22] MEDS: Metoprolol Tartrate TAB* 25 MG PO SCH ×2 (08:42→21:21)
[2017-02-22] MEDS: Magnesium Oxide TAB* 400 MG PO SCH (08:42)
[2017-02-22] MEDS: Sertraline* 100 MG TAB PO SCH (08:42)
[2017-02-22] MEDS: Ascorbic Acid TAB* 500 MG PO SCH (08:42)
[2017-02-22] MEDS: Diltiazem CD CAP* 120 MG PO SCH (08:42)
[2017-02-22] MEDS: Ferrous Sulfate TAB* 325 MG PO SCH ×2 (08:42→21:21)
[2017-02-22] MEDS: Potassium Chlor TAB* 10 MEQ TAB.ER PO SCH (08:43)
[2017-02-22] MEDS: Cyanocobalamin TAB* 500 MCG PO SCH (08:43)
[2017-02-22] MEDS: DIMETHYL FUMARATE 240 MG PO SCH ×2 (08:43→21:21)
--- NOTE | 2017-02-22 15:10 | PN ---
Progress Note - Progress Note Date of Service: 02/22/17 SOAP: Subjective: []Patient seen at bedside. She feels well. 3/10 RLE pain with movement. Denies CP or SOB. Objective: [] General: NAD, oob in chair RLE: dressing changed. Incision CDI without erythema, edema. DF/PF intact. 2+ DP. Sensation intact distally. BL LE: calves supple and nontender without erythema or edema Vital Signs Temp 98.2 F 02/21/17 08:21 Pulse 76 02/21/17 08:21 Resp 18 02/22/17 08:00 BP 120/62 02/21/17 08:21 Pulse Ox 98 02/21/17 08:21 Intake & Output 02/21/17 02/22/17 02/22/17 18:59 06:59 18:59 Intake Total 965 700 200 Output Total 1000 1000 525 Balance -35 -300 -325 Intake: Oral 965 700 200 Output: Urine 400 Garcia 600 1000 525 Other: # Bowel Movements 1 Estimated Stool Amount Medium Laboratory Last Values WBC 6.3 10^3/ul (3.5-10.8) 02/22/17 05:53 RBC 3.40 10^6/ul (4.0-5.4) L 02/22/17 05:53 Hgb 8.7 g/dl (12.0-16.0) L 02/22/17 05:53 Hct 26 % (35-47) L 02/22/17 05:53 MCV 78 fL (80-97) L 02/22/17 05:53 MCH 26 pg (27-31) L 02/22/17 05:53 MCHC 33 g/dl (31-36) 02/22/17 05:53 RDW 23 % (10.5-15) H 02/22/17 05:53 Plt Count 291 10^3/ul (150-450) 02/22/17 05:53 MPV 7 um3 (7.4-10.4) L 02/22/17 05:53 Neut % (Auto) 58.1 % (38-83) 02/22/17 05:53 Lymph % (Auto) 25.2 % (25-47) 02/22/17 05:53 [place] % (Auto) 12.1 % (1-9) H 02/22/17 05:53 Eos % (Auto) 3.7 % (0-6) 02/22/17 05:53 Baso % (Auto) 0.9 % (0-2) 02/22/17 05:53 Absolute Neuts (auto) 3.7 10^3/ul (1.5-7.7) 02/22/17 05:53 Absolute Lymphs (auto) 1.6 10^3/ul (1.0-4.8) 02/22/17 05:53 Absolute Monos (auto) 0.8 10^3/ul (0-0.8) 02/22/17 05:53 Absolute Eos (auto) 0.2 10^3/ul (0-0.6) 02/22/17 05:53 Absolute Basos (auto) 0.1 10^3/ul (0-0.2) 02/22/17 05:53 Absolute Nucleated RBC 0 10^3/ul 02/22/17 05:53 Nucleated RBC % 0.1 02/22/17 05:53 Assessment: []S/P Poly exchange and revision of RTKA Plan: [facility] continue current anticoagulation continue current pain management continue PT/OT ]
[2017-02-22] MEDS: Atorvastatin* 10 MG TAB PO SCH (17:40)
[2017-02-22] MEDS: Acetaminophen TAB* 325 MG PO PRN (17:40)
[2017-02-22] MEDS: Baclofen TAB* 10 MG PO SCH (21:21)
[2017-02-22] MEDS: Gabapentin CAP(*) 300 MG PO SCH (21:21)
[2017-02-23] MEDS: Heparin VIAL(*) 5000 UNITS/ML VIAL (FIVE THOUSAND) SUBCUT SCH (05:17)
[2017-02-23] MEDS: Levothyroxine TAB* 137 MCG TAB PO SCH (05:17)
[2017-02-23 06:31] LABS: ABS Basophils 0.1 10^3/ul (0-0.2); ABS Eosinophils 0.2 10^3/ul (0-0.6); ABS Lymphocytes 1.5 10^3/ul (1.0-4.8); ABS Monocytes 0.8 10^3/ul (0-0.8); ABS Neutrophils 2.8 10^3/ul (1.5-7.7); ABS Nucleated RBC 0 10^3/ul; Eosinophil % 4.3 % (0-6); Hematocrit 27 % (35-47); Hemoglobin 8.7 g/dl (12.0-16.0); Lymphocyte % 28.7 % (25-47); Mean Corpuscular HGB Conc 32 g/dl (31-36); Mean Corpuscular Hemoglobin 26 pg (27-31); Mean Corpuscular Volume 79 fL (80-97); Mean Platelet Volume 7 um3 (7.4-10.4); Nucleated Red Blood Cells % 0; Platelet Count 314 10^3/ul (150-450); Red Blood Count 3.41 10^6/ul (4.0-5.4); Red Cell Distribution Width 23 % (10.5-15); White Blood Count 5.4 10^3/ul (3.5-10.8)
[2017-02-23 08:16] VITALS: BP 122/65
--- NOTE | 2017-02-23 09:39 | PN ---
Progress Note - Progress Note Date of Service: 02/23/17 SOAP: Subjective: []Patient seen at bedside. She feels well and is prepared for discharge. She denies pain of RLE, CP, SOB, nausea. Objective: [] Vital Signs Temp 98.2 F 02/23/17 03:52 Pulse 74 02/23/17 03:52 Resp 16 02/23/17 03:52 BP 122/65 02/23/17 03:52 Pulse Ox 95 02/23/17 03:52 Intake & Output 02/22/17 02/23/17 02/23/17 18:59 06:59 18:59 Intake Total 325 600 Output Total 525 550 Balance -200 50 Intake: Oral 325 600 Output: Garcia 525 550 Other: Date of Last Bowel 02/23/17 Movement # Bowel Movements 1 Estimated Stool Amount Small Laboratory Last Values WBC 5.4 10^3/ul (3.5-10.8) 02/23/17 06:09 RBC 3.41 10^6/ul (4.0-5.4) L 02/23/17 06:09 Hgb 8.7 g/dl (12.0-16.0) L 02/23/17 06:09 Hct 27 % (35-47) L 02/23/17 06:09 MCV 79 fL (80-97) L 02/23/17 06:09 MCH 26 pg (27-31) L 02/23/17 06:09 MCHC 32 g/dl (31-36) 02/23/17 06:09 RDW 23 % (10.5-15) H 02/23/17 06:09 Plt Count 314 10^3/ul (150-450) 02/23/17 06:09 MPV 7 um3 (7.4-10.4) L 02/23/17 06:09 Neut % (Auto) 51.5 % (38-83) 02/23/17 06:09 Lymph % (Auto) 28.7 % (25-47) 02/23/17 06:09 [place] % (Auto) 14.3 % (1-9) H 02/23/17 06:09 Eos % (Auto) 4.3 % (0-6) 02/23/17 06:09 Baso % (Auto) 1.2 % (0-2) 02/23/17 06:09 Absolute Neuts (auto) 2.8 10^3/ul (1.5-7.7) 02/23/17 06:09 Absolute Lymphs (auto) 1.5 10^3/ul (1.0-4.8) 02/23/17 06:09 Absolute Monos (auto) 0.8 10^3/ul (0-0.8) 02/23/17 06:09 Absolute Eos (auto) 0.2 10^3/ul (0-0.6) 02/23/17 06:09 Absolute Basos (auto) 0.1 10^3/ul (0-0.2) 02/23/17 06:09 Absolute Nucleated RBC 0 10^3/ul 02/23/17 06:09 Nucleated RBC % 0 02/23/17 06:09 General: Well appearing, NAD. In bed. RLE: Dressing CDI. DF/PF intact. 2+ DP BL LE: calves supple and nontender without erythema, edema or palpable cords Assessment: []S/P Poly exchange and revision of RTKA Plan: []WBAT with assistance Dressing change daily PT/OT DC per hospitalist to [facility]
[2017-02-23] MEDS: Acetaminophen TAB* 325 MG PO PRN (10:25)
[2017-02-23] MEDS: DIMETHYL FUMARATE 240 MG PO SCH (10:25)
[2017-02-23] MEDS: Magnesium Oxide TAB* 400 MG PO SCH (10:26)
[2017-02-23] MEDS: Cyanocobalamin TAB* 500 MCG PO SCH (10:26)
[2017-02-23] MEDS: Sertraline* 100 MG TAB PO SCH (10:26)
[2017-02-23] MEDS: Ferrous Sulfate TAB* 325 MG PO SCH (10:27)
[2017-02-23] MEDS: Metoprolol Tartrate TAB* 25 MG PO SCH (10:27)
[2017-02-23] MEDS: Potassium Chlor TAB* 10 MEQ TAB.ER PO SCH (10:27)
[2017-02-23] MEDS: Diltiazem CD CAP* 120 MG PO SCH (10:27)
[2017-02-23] MEDS: Ascorbic Acid TAB* 500 MG PO SCH (10:27)
--- NOTE | 2017-02-23 11:56 | DS ---
CC: Dr. Brown; Dr. Thomson DATE OF ADMISSION TO ACUTE CARE: 02/03/2017. DATE OF DISCHARGE TO [facility]02/20/2017. DATE OF DISCHARGE FROM [facility]02/23/2017. PRINCIPAL DIAGNOSIS: Right prosthetic knee dislocation, status post poly exchange followed by right total knee revision arthroplasty. SECONDARY DIAGNOSES: 1. Multiple sclerosis. 2. ESBL E. coli urinary tract infection in the setting of a chronic Garcia. 3. Postoperative anemia. 4. Atrial fibrillation. 5. Hypothyroidism. 6. Neurogenic bladder with chronic Garcia. 7. GERD. 8. Depression. DISCHARGE MEDICATIONS: 1. Colace 100 mg p.o. twice daily. 2. Diltiazem CD 120 mg p.o. daily. 3. Flexeril 10 mg p.o. t.i.d. prn spasm. 4. Benadryl 25 mg p.o. q.6 hours prn itching. 5. Metoprolol Tartrate 12.5 mg p.o. q.12 hours (reduced dose). 6. Magnesium Oxide 800 mg p.o. daily. 7. Milk of Magnesia 30 ml p.o. b.i.d. prn constipation. 8. Ferrous Sulfate 325 mg p.o. twice daily. 9. Simvastatin 20 mg p.o. at bedtime. 10. Sertraline 100 mg p.o. daily. 11. Potassium Chloride 10 mEq p.o. daily. 12. Levothyroxine 137 mcg p.o. at bedtime. 13. Gabapentin 300 mg p.o. at bedtime. 14. Vitamin B12 500 mcg p.o. daily. 15. Vitamin D 1000 units p.o. daily. 16. Baclofen 10 mg p.o. at bedtime. 17. Ascorbic acid 500 mg p.o. daily. 18. Tecfidera 240 mg p.o. twice daily. 19. Calcium Carbonate 600 mg p.o. daily. 20. MiraLax 17 gm p.o. daily prn constipation. 21. Colace 100 mg p.o. twice daily prn constipation. HOSPITAL COURSE: Ms. Enriquez is a 71-year-old female who [place] [facility] [place] with complaints of weakness. She was found to have a urinary tract infection, but was also found to have a dislocated right total knee. The patient was seen in consultation by Dr. Thomson who perfo rmed a poly exchange, thinking that perhaps this would help keep her knee in place. Unfortunately, trent chavez working with physical therapy the patient again dislocated her knee. The dislocation was reduce d and then ultimately the decision was made to undergo a total knee revision with a hinged knee. The patient agreed and ultimately underwent the total knee revision on 02/17/2017. The patient has been doing well since. She states that her knee overall feels quite good. She has been able to mobilize better. The patient, at this point, is stable and ready for discharge to subacute rehab at [facility]. The patient did complete treatment for a catheter associated UTI where she grew ESBL klebsiella pneum oniae and pseudomonas aeruginosa. The patient has a chronic Garcia for her history of a neurogenic bl adder secondary to multiple sclerosis. The patient developed postoperative anemia; however, her hemoglobin has been stable. This can be mon itored as an outpatient. I do recommend that a follow-up CBC be obtained approximately one week late r to ensure stability of her hemoglobin and hematocrit. FOLLOW-UP CONCERNS: The patient is being discharged to [facility] today, 02/23/2017. The patient should follow-up with Dr. Thomson in one to two weeks and should have the shine removed from her knee in approximately 14 days. ACTIVITY LEVEL: As tolerated. DIET: Regular. CONDITION ON DISCHARGE: Stable. Thirty-five minutes were spent discharging this patient. [id number]/[facility] #: [id number]
== END 2017-02-23 13:15 | DRG 560 ==
LOC: SSU 13:03
PROVIDERS: ADMIT Internal Medicine; ATTEND Hospitalist
DX: T84.022A Instability of internal right knee prosthesis, initial encounter (principal); N39.0 Urinary tract infection, site not specified; G35 Multiple sclerosis; I48.91 Unspecified atrial fibrillation; D64.9 Anemia, unspecified; E03.9 Hypothyroidism, unspecified; N31.9 Neuromuscular dysfunction of bladder, unspecified; T83.518A Infection and inflammatory reaction due to other urinary catheter, initial encounter; F32.9 Major depressive disorder, single episode, unspecified; K21.9 Gastro-esophageal reflux disease without esophagitis; Y79.2 Prosthetic and other implants, materials and accessory orthopedic devices associated with adverse incidents; Y73.1 Therapeutic (nonsurgical) and rehabilitative gastroenterology and urology devices associated with adverse incidents; B96.20 Unspecified Escherichia coli [E. coli] as the cause of diseases classified elsewhere; Y92.9 Unspecified place or not applicable
CPT/HCPCS: 36415; 85025; A9270-GY; J1644

== ENCOUNTER 2017-04-19 08:42 | Observation (INO) | payer MEDICARE ==
[~2017-04-19 08:42] MED LIST: Buffered Lidocaine 0.9% SYRIN* 5 ML/SYR SYRINGE INTRADERM ONE; Buffered Lidocaine 0.9% SYRIN* 5 ML/SYR SYRINGE ONE; Famotidine IV* 10 MG/ML 2 ML (20 mg) IV ONE; Famotidine IV* 10 MG/ML 2 ML (20 mg) ONE; ceFAZolin 2 GM in 100 MLS NS (*) BAG IVPB ONE
[2017-04-19] MEDS ORDERED: Dexamethasone IV* 4 MG/ML 1 ML (4 MG) ONE (09:17)
[2017-04-19] MEDS ORDERED: Ondansetron INJ* 2 MG/ML VIAL ONE (09:17)
[2017-04-19] MEDS ORDERED: Propofol* 10 MG/ML 20 ML BTL IV PUSH ONE (09:17)
[2017-04-19] MEDS ORDERED: fentaNYL* 50 MCG/ML 2 ML VIAL (100 MCG VIAL) ONE ×2 (09:17→09:28)
[2017-04-19] MEDS ORDERED: Lidocaine 2% PF * 5 ML VIAL ONE (09:17)
[2017-04-19] MEDS ORDERED: Midazolam* 1 MG/ML 5 ML VIAL (5 MG) ONE (09:17)
[2017-04-19] MEDS ORDERED: Ketorolac INJ* 30 MG/ML 1 ML VIAL ONE (09:17)
[2017-04-19] MEDS ORDERED: Metoprolol Tartrate IV* 1 MG/ML 5 ML VIAL ONE (09:30)
[2017-04-19 09:31] LABS: Hematocrit 42 % (35-47); Hemoglobin 13.8 g/dl (12.0-16.0); Mean Corpuscular HGB Conc 33 g/dl (31-36); Mean Corpuscular Hemoglobin 26 pg (27-31); Mean Corpuscular Volume 79 fL (80-97); Mean Platelet Volume 8 um3 (7.4-10.4); Platelet Count 272 10^3/ul (150-450); Red Blood Count 5.31 10^6/ul (4.0-5.4); Red Cell Distribution Width 17 % (10.5-15); White Blood Count 4.7 10^3/ul (3.5-10.8)
[2017-04-19 09:52] LABS: EGFR Non-African American 100.2 (>60)
[2017-04-19 10:00] LABS: ABS Basophils 0.1 10^3/ul (0-0.2); ABS Eosinophils 0.1 10^3/ul (0-0.6); ABS Lymphocytes 0.8 10^3/ul (1.0-4.8); ABS Monocytes 0.5 10^3/ul (0-0.8); ABS Neutrophils 3.2 10^3/ul (1.5-7.7); ABS Nucleated RBC 0 10^3/ul; Lymphocyte % 16.4 % (25-47); Nucleated Red Blood Cells % 0.3
[2017-04-19] MEDS ORDERED: Lidocaine 1% INJ* 10 MG/ML 30 ML SDV ONE (10:41)
[2017-04-19] MEDS ORDERED: Lidocaine 1.5% EPI 1:200,000* 30 ML SDV ONE (10:53)
[2017-04-19] MEDS ORDERED: EPHEDrine (Pressors)* 50 MG/ML VIAL ONE (11:04)
[2017-04-19] MEDS ORDERED: fentaNYL* 50 MCG/ML 2 ML VIAL (100 MCG VIAL) IV PRN (11:29)
[2017-04-19] MEDS ORDERED: Naloxone* 0.4 MG/ML 1 ML VIAL IV PRN (11:29)
[2017-04-19] MEDS ORDERED: Ondansetron INJ* 2 MG/ML VIAL IV PRN (11:29)
[2017-04-19] MEDS ORDERED: EPINEPHRINE 1 MG/ML 1 ML VIAL ONE (11:59)
[2017-04-19] MEDS ORDERED: Bupivacaine 0.25% SDV* 30 ML ONE (11:59)
[2017-04-19] MEDS ORDERED: oxyCODONE TAB* 5 MG TAB PO PRN (12:21)
[2017-04-19] MEDS ORDERED: Morphine INJ* 4 MG/ML 1 ML SYRINGE (NEW SYRINGE VERSION) IV PRN (12:21)
[2017-04-19] MEDS ORDERED: Morphine INJ* 2 MG/ML 1 ML CARPUJECT IV PRN (12:21)
[2017-04-19] MEDS ORDERED: oxyCODONE/Acetamin 5/325 MG* TAB PO PRN ×2 (12:21)
[2017-04-19] MEDS ORDERED: traZODone TAB* 50 MG TAB PO PRN (12:21)
[2017-04-19] MEDS ORDERED: diPHENhydraMINE IV* 50 MG/ML 1 ml VIAL (BENADRYL) IV PRN (12:21)
[2017-04-19] MEDS ORDERED: Magnesium Hydroxide LIQ* 30 ML UDC PO PRN (12:21)
[2017-04-19] MEDS ORDERED: Cyclobenzaprine TAB* 10 MG PO PRN (12:34)
[2017-04-19] MEDS: ceFAZolin 1 GM in Dextrose (*) 1 GM/50 ML BAG IVPB SCH ×2 (14:48→23:33)
[2017-04-19] MEDS: Diltiazem TAB* 30 MG PO SCH ×2 (14:48→20:23)
[2017-04-19] MEDS: D5W 1/2 NS 1000 ML BAG* 1,000 ML IV SCH (14:59)
[2017-04-19] MEDS: Docusate CAP* 100 MG PO SCH (20:22)
[2017-04-19] MEDS: Dimethyl Fumarate(NF) 240 MG CAP PO SCH (20:23)
[2017-04-19] MEDS: Sulfamethox/Trimethoprim DS 800/160* TAB PO SCH (20:23)
[2017-04-19] MEDS: Magnesium Hydroxide LIQ* 30 ML UDC PO SCH (20:25)
[2017-04-19] MEDS ORDERED: Baclofen TAB* 10 MG PO SCH (21:00)
[2017-04-19] MEDS ORDERED: Levothyroxine TAB* 137 MCG TAB PO SCH (21:00)
[2017-04-19] MEDS ORDERED: Gabapentin CAP(*) 300 MG PO SCH (21:00)
[2017-04-19] MEDS ORDERED: Atorvastatin* 10 MG TAB PO SCH (21:00)
[2017-04-20] MEDS: D5W 1/2 NS 1000 ML BAG* 1,000 ML IV SCH (00:01)
--- NOTE | 2017-04-20 00:11 | CONS ---
CC: Dr. Brown; Dr. Ren; Dr. Thomson; Dr. Nair; [facility]; Dr. Hart * CONSULTATION REPORT: DATE OF CONSULT: 04/19/17 PRIMARY CARE PROVIDER: Dr. Brown. Currently, the patient is at [facility]. REASON FOR CONSULTATION: Perioperative management of patient status post right knee incision and drainage. HISTORY OF PRESENT ILLNESS: Ms. Eduardo is a 71-year-old female with a history of multiple sclerosis who had multiple orthopedic surgeries. She had undergone a total knee replacement with Dr. Nair in 2008, which apparently was infected and then she had treatment in [place] and revision in [place]. In January 2017, she presented with what appeared to be subluxation of the right prosthetic knee and she underwent revision and initially it was only polyethylene exchange. Unfortunately, that did not help and she had another subluxation during the same hospitalization and then she underwent hinged knee arthroplasty performed by Dr. Thomson on 02/17/17. Postoperatively, she did well and she was discharged to [facility] for rehabilitation. During her postop stay at [facility], she was noted to be ambulating well using a wheelchair. She is progressing with her ADLs well. Nevertheless, she was noted to have right knee effusion and "a bulge" laterally to her knee, which was aspirated and as per Dr. Thomson's verbal ab report to me were noted to have yeast cells in it. Due to that, Dr. Thomson saw patient for followup and recommended a knee washout that was performed today. The patient was also given an option of a lateral knee replacement, which she refused. Currently, she is also being treated for UTI with Bactrim. Right now, she is up to 3 times a week only treatment. PAST MEDICAL HISTORY: 1. History of multiple sclerosis. 2. History of bilateral leg weakness due to multiple sclerosis. 3. History of neurogenic bladder with Garcia catheter in place. 4. History of hypothyroidism. 5. History of right ankle fracture, status post open reduction internal fixation in March 2015. 6. History of open reduction internal fixation of the left ankle in 2015. 7. Gastroesophageal reflux disease. 8. Depression. 9. History of sacral decubitus ulcer, status post surgery and skin flap in 2012. 10. Status post thyroidectomy in 1980. 11. History of right knee replacement in 2008 with as above mentioned, revision. 12. Chronic atrial fibrillation. MEDICATIONS: Include: 1. Bactrim 1 tablet b.i.d. 3 times a day. 2. Simvastatin 20 mg daily. 3. Zoloft 100 mg daily. 4. Potassium chloride 10 mEq daily. 5. Omeprazole 20 mg daily. 6. Metoprolol tartrate 25 mg daily. 7. Magnesium oxide 400 mg daily. 8. Levothyroxine 137 mcg daily. 9. Gabapentin 300 mg daily. 10. Furosemide 20 mg daily. 11. Ferrous sulfate 325 mg daily. 12. Tecfidera 240 mg b.i.d. 13. Cardizem 30 mg 3 times a day. 14. Flexeril 10 mg 3 times a day p.r.n. 15. Vitamin B12 500 mcg daily. 16. Vitamin D3 1000 units daily. 17. Keflex 500 mg 3 times a day started a week ago by Dr. Thomson for a knee infection. 18. Calcium carbonate 600 mg daily. 19. Baclofen 10 mg q.p.m. 20. Aspirin 325 mg daily. 21. Vitamin C 500 mg daily. ALLERGIES: Include IBUPROFEN which caused the patient to have ulcers and anaphylaxis. FAMILY HISTORY: The patient's mother at the age of 92 secondary to dementia and stroke. Father of accident at a young age. SOCIAL HISTORY: The patient quit smoking in 1980. She denies any alcohol or drug use. 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 Her friend, Mili Shields, is her healthcare proxy. Mili's phone number is [phone]. The patient also has a sister, Tere, who is the person who could be surrogate if Mili could not be reached. REVIEW OF SYSTEMS: Please see history of present illness. The patient states that she has been doing very well. She lost intentionally some weight and she once again had been doing very well progressing with activities of daily living. Specifically, she had been denying any problems with fevers. Her Garcia is in place and she is being treated for urinary tract infection. Unfortunately , she is unable to provide me with what bacteria was detected during her detention stay. All the remaining 12 systems were reviewed with the patient and were otherwise negative. PHYSICAL EXAM: Blood pressure of 109/69, heart rate of 84 and regular, respiratory rate 16, oxygen saturation 95% on room air, temperature 98.0. General: The patient is a very pleasant 71-year-old female, who is in no acute distress. Alert, awake, oriented x3. HEENT: Head: Atraumatic, normocephalic. Eyes: Pupils are equal, reactive to light and accommodation. Oropharynx: Clear. Mucosa moist. Neck: Supple. No JVD. No bruits bilaterally. Cardiovascular: Irregularly irregular rhythm. No murmurs. Respiratory: Clear to auscultation bilaterally. Abdomen: Soft, nontender. Bowel sounds are present in all 4 quadrants. Extremities: There is trace right ankle edema. +2 pulses bilaterally. No clubbing or cyanosis. The right knee is in postop dressings that were not removed. On evaluation of the skin, the patient has a scar, what used to be decubitus ulcer on her sacrum. 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 CURRENT LABORATORY DATA: Showed white blood cell count 4.7, hemoglobin of 13.8 , hematocrit of 42, MCV of 79 and platelets of 272. Sodium was 137, potassium 4.0, chloride 100, carbon dioxide 27, BUN 16, creatinine 0.5, glucose was 107, calcium of 10.5, which was a mild increase. Synovial fluid showed pink bloody fluid with a WBC 3300, RBC 14,000. Cultures are pending, but Gram stain showed no organisms and +4 neutrophils. ASSESSMENT AND PLAN: 1. In regards to right knee infection. At this point, that needs to be evaluated by Dr. Thomson and Dr. Hart. At this point, she is on cefazolin postoperatively and her antibiotics are not going to be changed for the time being. 2. The patient has a history of chronic atrial fibrillation, which is well controlled with Cardizem, which is going to be also continued. 3. The patient has a history of urinary tract infection, which is Garcia associated and she had been on suppressive treatment with Bactrim. For the time being when she on another antibiotic, I would hold her Bactrim. It is up to the physician back at the detention if the Bactrim needed to be restarted. 4. Dyslipidemia was going to be treated with the patient's statin. 5. For her hypothyroidism, her Synthroid is going to be continued. 6. For her hypertension, she is going to be continued with metoprolol ER. 7. For her depression, the patient is going to be continued on Zoloft at 100 mg daily. 8. In regards to the patient's anticoagulation, the patient is going to be placed on Lovenox for DVT prophylaxis as it was already done by the orthopedic service. She used to be on Xarelto 10 mg dose, which is I believe prophylactic dose for her knee. In conjunction with that, she has history of ulcers in 2017. I believe the full dose was never started. 9. The patient's code status is full and her surrogate, as mentioned above, is her friend, Mili. TIME SPENT: Approximately 55 minutes were spent on consultation of this patient , more than half of that time was spent [id number] with the patient during the interview and physical exam. Thank you very much for allowing us to see your patient in consultation. We will see the patient on a p.r.n. basis. Please call at any time if you need immediate assistance. [id number]/[facility] #: [id number] JANETH
[2017-04-20 04:57] LABS: Hematocrit 36 % (35-47); Hemoglobin 11.6 g/dl (12.0-16.0); Mean Platelet Volume 8 um3 (7.4-10.4); Platelet Count 231 10^3/ul (150-450)
[2017-04-20 05:11] LABS: EGFR Non-African American 102.2 (>60)
[2017-04-20] MEDS: ceFAZolin 1 GM in Dextrose (*) 1 GM/50 ML BAG IVPB SCH (08:11)
[2017-04-20] MEDS: Diltiazem TAB* 30 MG PO SCH ×2 (08:46→14:38)
[2017-04-20] MEDS: Docusate CAP* 100 MG PO SCH (08:47)
[2017-04-20] MEDS: Sulfamethox/Trimethoprim DS 800/160* TAB PO SCH (08:47)
[2017-04-20] MEDS: Magnesium Hydroxide LIQ* 30 ML UDC PO SCH (08:48)
[2017-04-20] MEDS: Dimethyl Fumarate(NF) 240 MG CAP PO SCH (08:52)
[2017-04-20] MEDS ORDERED: Ascorbic Acid TAB* 500 MG PO SCH (09:00)
[2017-04-20] MEDS ORDERED: Calcium Carbonate TAB* 1250 MG (CALCIUM 500 MG) PO SCH (09:00)
[2017-04-20] MEDS ORDERED: Vitamin THERAPEUTIC TAB PO SCH (09:00)
[2017-04-20] MEDS ORDERED: Ferrous Sulfate TAB* 325 MG PO SCH (09:00)
[2017-04-20] MEDS ORDERED: Omeprazole CAP* 20 MG PO SCH (09:00)
[2017-04-20] MEDS ORDERED: Magnesium Oxide TAB* 400 MG PO SCH (09:00)
[2017-04-20] MEDS ORDERED: Furosemide TAB* 20 MG PO SCH (09:00)
[2017-04-20] MEDS ORDERED: Sertraline* 100 MG TAB PO SCH (09:00)
[2017-04-20] MEDS ORDERED: Cyanocobalamin TAB* 500 MCG PO SCH (09:00)
[2017-04-20] MEDS ORDERED: Cholecalciferol TAB* 1000 UNITS PO SCH (09:00)
[2017-04-20] MEDS ORDERED: Potassium Chlor TAB* 10 MEQ TAB.ER PO SCH (09:00)
[2017-04-20] MEDS ORDERED: Metoprolol Tartrate TAB* 25 MG PO SCH (09:00)
[2017-04-20] MEDS ORDERED: Enoxaparin(*) 40 MG/0.4 ML SYR SUBCUT SCH (12:21)
--- NOTE | 2017-04-20 13:22 | PN ---
Progress Note - Progress Note Date of Service: 04/20/17 SOAP: Subjective: []Patient seen at bedside. She feels well with no pain of her right knee. Denies fever or chills. Objective: [] Vital Signs Temp 97.3 F 04/20/17 07:54 Pulse 81 04/20/17 07:54 Resp 16 04/20/17 07:54 BP 121/69 04/20/17 07:54 Pulse Ox 94 04/20/17 07:54 Intake & Output 04/19/17 04/20/17 04/20/17 18:59 06:59 18:59 Intake Total 2029 1535 2539 Output Total 1075 Balance 2029 460 2539 Weight 180 lb Intake: IV Fluids 4536 302 6785 LR 1250 NS 50ML, Cefazolin 2G 50 d51/2ns 0 980 992 IVPB 55 Kefzol 55 Oral 680 500 555 Output: Garcia 1075 Other: Estimated Void Small # Bowel Movements 0 # Voids 1 Laboratory Last Values WBC 4.7 10^3/ul (3.5-10.8) 04/19/17 09:09 RBC 5.31 10^6/ul (4.0-5.4) 04/19/17 09:09 Hgb 11.6 g/dl (12.0-16.0) L 04/20/17 04:50 Hct 36 % (35-47) 04/20/17 04:50 MCV 79 fL (80-97) L 04/19/17 09:09 MCH 26 pg (27-31) L 04/19/17 09:09 MCHC 33 g/dl (31-36) 04/19/17 09:09 RDW 17 % (10.5-15) H 04/19/17 09:09 Plt Count 231 10^3/ul (150-450) 04/20/17 04:50 MPV 8 um3 (7.4-10.4) 04/20/17 04:50 Neut % (Auto) 68.6 % (38-83) 04/19/17 09:09 Lymph % (Auto) 16.4 % (25-47) L 04/19/17 09:09 Bullock % (Auto) 10.7 % (0-7) H 04/19/17 09:09 Eos % (Auto) 3.0 % (0-6) 04/19/17 09:09 Baso % (Auto) 1.3 % (0-2) 04/19/17 09:09 Absolute Neuts (auto) 3.2 10^3/ul (1.5-7.7) 04/19/17 09:09 Absolute Lymphs (auto) 0.8 10^3/ul (1.0-4.8) L 04/19/17 09:09 Absolute Monos (auto) 0.5 10^3/ul (0-0.8) 04/19/17 09:09 Absolute Eos (auto) 0.1 10^3/ul (0-0.6) 04/19/17 09:09 Absolute Basos (auto) 0.1 10^3/ul (0-0.2) 04/19/17 09:09 Absolute Nucleated RBC 0 10^3/ul 04/19/17 09:09 Nucleated RBC % 0.3 04/19/17 09:09 Sodium 132 mmol/L (133-145) L 04/20/17 04:50 Potassium 4.1 mmol/L (3.5-5.0) 04/20/17 04:50 Chloride 100 mmol/L (101-111) L 04/20/17 04:50 Carbon Dioxide 26 mmol/L (22-32) 04/20/17 04:50 Anion Gap 6 mmol/L (2-11) 04/20/17 04:50 BUN 12 mg/dL (6-24) 04/20/17 04:50 Creatinine 0.58 mg/dL (0.51-0.95) 04/20/17 04:50 Est GFR ( Amer) 131.4 (>60) 04/20/17 04:50 Est GFR (Non-Af Amer) 102.2 (>60) 04/20/17 04:50 BUN/Creatinine Ratio 20.7 (8-20) H 04/20/17 04:50 Glucose 160 mg/dL (70-100) H 04/20/17 04:50 Calcium 9.5 mg/dL (8.6-10.3) 04/20/17 04:50 Fluid Source Synovial fluid 04/19/17 11:53 Fluid Volume 3 mL 04/19/17 11:53 Fluid Color [place] 04/19/17 11:53 Fluid Appearance Bloody 04/19/17 11:53 Fluid WBC 3337 /mcL (0-142715) 04/19/17 11:53 Fluid RBC 05930 /mcL 04/19/17 11:53 Fluid Tot Cell Count 100 04/19/17 11:53 Fluid Neutrophils 97 % 04/19/17 11:53 Fluid Monocytes 3 % 04/19/17 11:53 Fluid Cell Count Rvw By 04/19/17 11:53 General: Well appearing, NAD RLE: Dressing CDI with no erythema proximally or distally. DF/PF intact. 2+ DP pulse. BL LE: Calves supple and nontender without erythema, edema or palpable cords. Assessment: []POD 1 sp I&D/ debridement right knee 04/19, Dr Thomson Plan: []WBAT PT/OT Infection management per ID. Office culture demonstrate "yeast like organism", med rec with diflucan allergy patient does not recall D/C back to [facility] when appropriate infection management in place
--- NOTE | 2017-04-20 13:32 | OP ---
CC: Karley Perea MD * DATE OF OPERATION: 04/19/17 - ROOM #349 DATE OF : 43 SURGEON: Ceasar Thomson MD HOME PARAPROFESSIONAL: MARIN Toro ANESTHESIOLOGIST: Reji Nguyen MD ANESTHESIA: General. PRE-OP DIAGNOSES: 1. Effusion/infection, right knee. 2. Sinus tract right knee. POST-OP DIAGNOSES: 1. Effusion/infection, right knee. 2. Sinus tract right knee. OPERATIVE PROCEDURE: 1. Right knee arthroscopy. 2. Debridement, right knee. 3. Debridement, right knee sinus tract. ESTIMATED BLOOD LOSS: Less than 50 cc. COMPLICATIONS: None. DESCRIPTION OF PROCEDURE: Ms. Enriquez is a 71-year-old female who initially had undergone a total knee arthro[place] [address] Nair. The knee, however, did become infected and she had undergone revision in [place]. Unfortunately, she had dislocated the knee and had not walked for several months and last January had presented to neurology for her MS and was admitted to the floor. She had presented to me with a dislocated knee. Initially we did a polyethylene exchange as I thought perhaps her polyethylene had worm down and was damaged, but she again dislocated and was revised to a hinged knee. She was very pleased as she was walking and doing more than she had in many months. Unfortunately, the knee had began to swell even though there had been no pain and an aspirate was done at [facility] which had a negative Gram stain, but had started to grow a yeast-like organism. She also had a white blood cell count of the knee aspirate of 17,000. I discussed with her that this was very concerning for an infection and I would like to wash the knee out. She had been scheduled for last Wednesday for this, but she canceled and I insisted she be rescheduled again. She did present today and we again discussed the need to wash the knee out and get her on perhaps an antifungal instead of the oral antibiotics that I had ordered. Risks of surgery such as continued infection, scar formation, stiffness, DVT, and pulmonary embolism were discussed, and she did not want to have any components removed or the knee opened. I discussed with her we could start with a wash-out and hopefully this would allow us to get ahead of the infection and then suppress it. DESCRIPTION OF PROCEDURE: The patient was brought to the OR and an LMA was placed. Right knee was prepped and then draped. Knee was first aspirated and aspirate was sent for culture, Gram stain, sensitivity, glucose and protein. Similarly, there was a sinus tract which I was not convinced initially communicated with the knee, but after manipulating the knee some and playing with the soft tissues and squeezing, I thought it was a sinus tract that did communicate with the knee. Both aspirates, however, were taken separately and tissues were sent. Portal sites were preinjected using 0.25% Marcaine mixed with 1% lidocaine with epinephrine and a standard lateral portal was made first right along her old scar. Blunt trocar with the sheath was easily introduced into the knee and a camera was introduced into the sheath. Good views were obtained and I could move nicely by the polyethylene and medial portal was also made. Shaver was introduced and the shaver did gently scrape along the capsule to remove the synovial layer. With the knee in extension, I was able to come down into the gutters and up into the pouch and continue to clean. I thought I saw a very specific hole towards the lateral side. With manipulating back and forth and eventually using a probe, I was able to demonstrate that this did communicate. Shaver was used to debride out through where that communicated and a little bit of necrotic fatty tissue was obtained outwards from the other side. Rongeur was also used to debride from the sinus tract inwards. Total of nearly 15 L of saline were used to wash the knee out. There was never any purulence that was seen within the knee. I also tried to pass several small Prolene stitches to try and close that hole, but I did not believe that was entirely successful. Sinus tract was pursestringed to allow for some continued drainage, but also to allow the soft tissues to heal around there as well. Portal sites were closed using 4-0 nylon suture as well. Sterile dressing was applied in the OR. The patient had the LMA removed in the OR and was stable on transfer to the recovery room. DISPOSITION/DISCHARGE SUMMARY: Ms. Enriquez is a 71-year-old female who just underwent a right knee arthroscopy and debridement of the knee. She tolerated the procedure well, there were no complications. She was currently rolling towards the recovery room. I would like her admitted to an observation bed on [address] Siva Hart, the infectious disease specialist, can evaluate her and hopefully get us on a course with either antibiotics and/or an antifungal. Once we are set on the treatment that we will use for her infection , we would like to get her back to [facility]. [id number]/[facility] #: [id number] MTDD
[2017-04-20] MEDS ORDERED: ceFAZolin 1 GM VIAL(*) 1 GM in NS 0.9% 50 ML* 50 ML IVPB SCH (14:00)
[2017-04-20] MEDS ORDERED: Fluconazole 100 MG TAB* TAB PO ONE (14:31)
--- NOTE | 2017-04-20 16:16 | DS ---
DATE OF ADMISSION: 04/19/2017. DATE OF DISCHARGE: 04/20/2017. DATE OF OPERATION: 04/19/2017. ATTENDING SURGEON: Dr. Ceasar Thomson * (dictated by MARIN Duffy). PLATEN PRESS OPERATOR: MARIN Duffy. PREOPERATIVE DIAGNOSIS: Effusion/infection of the right knee, sinus tract right knee. POSTOPERATIVE DIAGNOSIS: Effusion/infection of the right knee, sinus tract right knee. OPERATIVE PROCEDURE: Right knee arthroplasty, debridement of the right knee, debridement of the right knee sinus tract. HISTORY: Ms. Enriquez is a 71-year-old female who initially had undergone a right total knee arthroplasty in 2008. This knee had thereafter become infected and she had undergone revision in [place]. Thereafter she dislocated this knee and did not walk for several months. A polyethylene exchange was completed and eventually revised to a hinged knee. Earlier this week, due to swelling, the patient had a knee aspiration at [facility] which showed a yeast-like organism. The patient was brought to our OR for washout on 2017. HOSPITAL COURSE: The patient was admitted to [facility] on 2017, the same day she underwent a right knee arthroscopy, debridement of the right knee and debridement of the right knee sinus tract procedures completed without complication. She recovered briefly in the PACU and then was transferred to the Short Stay Surgical Unit in stable condition. She was seen postop day one, doing well without any pain in her right knee, denying any fever or chills. Dressing is clean, dry and intact. No erythema proximally or distally. Dorsiflexion and plantarflexion intact, 2+ dorsalis pedis pulse. The calves are subtle, nontender, without erythema, edema or palpable cords. Hemoglobin was 11.6, hematocrit 36, white blood cell count 4.7. She was seen by Infectious Disease, Dr. Siva Hart, who suggested that the patient be one 400 mg of Fluconazole daily for six weeks. She will also remain on Bactrim for another two weeks. DISCHARGE MEDICATIONS: 1. Vitamin D 1,000 units q.a.m. 2. Gabapentin 300 mg p.o. q.p.m. 3. Baclofen 10 mg p.o. q.p.m. 4. Levothyroxine 137 mcg p.o. q.p.m. 5. Potassium 10 mEq p.o. q.a.m. 6. Cyanocobalamin 500 mcg p.o. q.a.m. 7. Ascorbic Acid one cap p.o. q.a.m. 8. Calcium Carbonate 600 mg p.o. q.a.m. 9. Cyclobenzaprine 10 mg p.o. t.i.d. prn. 10. Xarelto 10 mg p.o. q.a.m. 11. Omeprazole one tab p.o. q.a.m. 12. Sertraline 100 mg p.o. q.a.m. 13. Diltiazem 30 mg one tab p.o. t.i.d. 14. Simvastatin one tab p.o. q.p.m. 15. Aspirin 325 mg one tab p.o. q.a.m. 16. Tecfidera 240 mg p.o. b.i.d. 17. Lasix 20 mg q.a.m. 18. Keflex was discontinued at home. 19. Bactrim double strength 800/160 one tab p.o. b.i.d. for 14 days. 20. Magnesium Oxide 400 mg p.o. q.a.m. 21. Ferrous Sulfate 325 mg p.o. q.a.m. 22. Docusate 100 mg p.o. b.i.d. 23. Fluconazole 400 mg p.o. daily for 6 weeks. 24. Percocet 5/325 one to two tabs every 4 to 6 hours as needed, max daily dose of 8. DISCHARGE INSTRUCTIONS: The patient will be transferred back to [facility]. She will be weightbearing as tolerated. She may shower after postop day three, 04/22/2017. No bathing, swimming or submerging wound. As of 2017, wound dressing can be changed daily with dry sterile dressing, gauze 4 x 4 's and then tape. Continue physical therapy and occupational therapy exercises as shown. Nurse to remove sutures in 10 to 12 days and to do wound checks. Resume her home anticoagulant of Xarelto 10 mg daily. Continue Bactrim for another two weeks. Also start Fluconazole 400 mg p.o. daily for six weeks. Follow-up with Dr. Thomson within seven to ten days. Call for an appointment. SETH [place], [place] [id number]/[facility] #: [id number] [facility]
[2017-04-20 16:48] VITALS: BP 116/70
--- NOTE | 2017-04-20 22:08 | CONS ---
CONSULTATION REPORT: DATE OF CONSULT: 04/20/17 REQUESTING PHYSICIAN: Dr. Thomson CONSULTING SERVICE: Infectious Disease. REASON FOR CONSULTATION: Right knee infection. IMPRESSION: 1. Status post revision right total knee arthroplasty, 02/17/17, after dislocating the previous arthroplasty twice. She has also developed a lateral right knee fluid collection, which was aspirated by Dr. Thomson showed 19,000 white cells. Cultures were negative except for a yeast like organism. I discussed it with microbiology lab in [place] and they were unclear if it looked like janeen or not. If there is a yeast there and there is a true passage and the differential includes janeen or cryptococcus. Alternatively, it may just be a contaminant from the collection process. 2. Multiple sclerosis, neurogenic bladder and chronic Garcia catheter. 3. Status post thyroidectomy. RECOMMENDATION: Continue Bactrim double strength tablet daily and we will add fluconazole 400 mg by mouth daily while awaiting the results of her fluid culture here, which I have asked the lab to add on a fungal culture and further results from [place] [facility], hopefully there is a species identified shortly. We will plan on 6 weeks of treatment at this time and we will follow up the culture results. CBC, CMP and CRP in 2 weeks. HISTORY OF PRESENT ILLNESS: This is a 71-year-old woman with multiple sclerosis , recently had a second revision of her right knee arthroplasty, was doing well , then developed lateral fluid collection, which was slightly red and warm, not tender and did not change the function of the knee as far as she could tell. She had the foot aspirated as described above. She had an incision and debridement done yesterday by Dr. Thomson. There was a superficial subcutaneous collection and was resolved. There was a sinus tract to the right knee, but not findings of purulence within the knee joint. She has been on antibiotics, Ancef overnight, tolerating that well. Her knee feels fine. The fluid obtained yesterday showed 3000 white cells, 14,000 red cells. Gram stain shows no organisms and PCR for Staph aureus is negative. PAST MEDICAL HISTORY: 1. Multiple sclerosis. 2. Neurogenic bladder with chronic Garcia catheter. 3. Status post thyroidectomy. 4. Status post open reduction internal fixation, left ankle in 2015. 5. Status post open reduction internal fixation right ankle in 2016. 6. Gastroesophageal reflux disease. 7. Depression. 8. History of sacral decubitus ulcer status post skin and muscle flap 2012. MEDICATIONS: 1. Vitamin C. 2. Lipitor. 3. Baclofen. 4. Cholecalciferol. 5. Cyanocobalamin. 6. Flexeril. 7. Dimethyl fumarate. 8. Enoxaparin. 9. Furosemide. 10. Gabapentin. 11. Ancef 1 g every 8 hours. 12. Levothyroxine. 13. Magnesium. 14. Metoprolol. 15. Oxycodone. 16. Omeprazole. 17. Sertraline. 18. Bactrim 1 tablet by mouth twice daily. 19. Trazodone. ALLERGIES: IBUPROFEN caused anaphylaxis. FAMILY HISTORY: No recurrent infections. SOCIAL HISTORY: She has been living in [facility] . She is from [place]. No travel or sick contacts. REVIEW OF SYSTEMS: All negative in the 14-point review of systems except as noted above. PHYSICAL EXAMINATION: Vital Signs: Temperature is 37, heart rate 80, respiratory rate 16, blood pressure 102/55, oxygen saturation 96% on room air. In general, she is awake, not in distress. Neurologic: She is oriented x3. Follows all commands. HEENT: There is no conjunctival hemorrhage, oropharynx without lesions. There is no thrush. Neck is supple without mass. Lymph Nodes : There is no inguinal, axillary, or epitrochlear lymphadenopathy. Heart has regular rate and rhythm without murmur, rubs, or gallops. Lungs are clear to auscultation bilaterally. Abdomen: Soft, nontender, nondistended. There are bowel sounds present. Skin: There is no rash or splinter hemorrhages. Musculoskeletal: There is no spine tenderness to palpation. The right knee is wrapped. There is no underlying erythema or warmth. Incision is intact. LABORATORY DATA: White blood cell count 4, hemoglobin 13, platelets 272. Creatinine 0.5. Please see impressions and recommendations outlined above, which I have discussed with MARIN Duffy. Thank you for asking me to see Ms. Enriquez in consultation. [id number]/[facility] #: [id number] MTDD
== END 2017-04-20 16:45 ==
LOC: OR 08:42 → SSU 12:22
PROVIDERS: ADMIT Orthopaedic Surgery; ATTEND Orthopaedic Surgery
DX: M25.461 Effusion, right knee (principal); M25.161 Fistula, right knee; G35 Multiple sclerosis; N31.2 Flaccid neuropathic bladder, not elsewhere classified; Z96.0 Presence of urogenital implants; Z90.89 Acquired absence of other organs; K21.9 Gastro-esophageal reflux disease without esophagitis; F32.9 Major depressive disorder, single episode, unspecified; Z96.651 Presence of right artificial knee joint
CPT/HCPCS: 36415; 80048; 82945; 84157; 85014; 85018; 85025; 85049; 87070; 87076; 87102; 87106; 87205; 87640; 87641; 87899; 89051; 94760; A9270-GY; G0378; G8978-GP-CJ; G8979-GP-CI; G8990-GO-CJ; G8991-GO-CI; G8992-GO-CI; J0690; J1100; J1650; J1885; J2250; J2405; J2704; J3010; J3490